=== PATIENT | female | born 1970 | race Caucasian/White ===

== ENCOUNTER 2019-10-23 18:21 | Emergency (ER) | payer BC, OTHER, SELFPAY ==
[2019-10-23 18:43] VITALS: BP 137/66; PULSE 82; RESP 16; TEMP 37.3; O2SAT 100
--- NOTE | 2019-10-23 19:16 | ED.SKABFB ---
HPI - Skin/Abscess/Foreign Bdy General Chief complaint: Skin/Abscess/Foreign Body Stated complaint: possible 3rd infected toe Time Seen by Provider: 10/23/19 19:19 Source: patient and RN notes reviewed Mode of arrival: ambulatory Limitations: no limitations History of Present Illness HPI narrative: 49 year old female who presents to express care with complaints of having callus type lesion to her left 3rd toe for some time and she rubbed it with a pumice stone. Patient states that now she has noticed her 3rd left toe red and has some extension of redness into her left toe. Patient voices tenderness to her toe described as aching rates it 4/10.Patient denies any tingling or numbness to her left foot, pedal and posterior tibial pulses palpable nail beds have brisk capillary refill to her left foot. MD complaint: lesion (callus) and other (possible cellulitis to 3rd toe) Tetanus up to date: yes Location: L foot (3rd toe) Severity: mild Severity scale (1-10): 4 Quality: aching Pain Consistency: intermittent Relieving factors: none Exacerbating factors: movement Context: other (callus patient rubbed with pumice stone) Associated symptoms: other (discomfort and redness to toe) Treatments prior to arrival: OTC topical medication Related Data Home Medications Medication Instructions Recorded Confirmed allopurinol 100 mg PO DAILY 10/23/19 10/23/19 atorvastatin 40 mg PO DAILY 10/23/19 10/23/19 balsalazide 750 mg PO DAILY 10/23/19 10/23/19 gabapentin 300 mg PO DIRECTED 10/23/19 10/23/19 levothyroxine 137 mcg PO DAILY 10/23/19 10/23/19 loratadine 10 mg PO DAILY 10/23/19 10/23/19 meloxicam 15 mg PO DAILY 10/23/19 10/23/19 metformin 1,000 mg PO DAILY 10/23/19 10/23/19 metoprolol succinate 50 mg PO DAILY 10/23/19 10/23/19 omeprazole 20 mg PO DAILY 10/23/19 10/23/19 valsartan-hydrochlorothiazide 1 tablet PO DAILY 10/23/19 10/23/19 Allergies Allergy/AdvReac Type Severity Reaction Status Date / Time No Known Allergies Allergy Mild Verified 10/23/19 18:48 Review of Systems Review of Systems: Narrative: CONSTITUTIONAL: Denies fever, chills, or sweats. EYES: Denies visual changes, redness, or discharge. ENT: Denies rhinorrhea, congestion, sore throat, or otalgia. CARDIOVASCULAR: Denies chest pain, palpitations, or edema. RESPIRATORY: Denies cough or dyspnea. GASTROINTESTINAL: Denies abdominal pain, nausea, vomiting, or diarrhea. GENITOURINARY: Denies dysuria or hematuria. SKIN: Denies rash or itching.callus lesion to the 3rd left toe with redness to left 3rd toe and into dorsal left foot. MUSCULOSKELETAL: Denies back pain, joint pain, or myalgia. NEUROLOGIC: Denies headache, numbness, or weakness. PSYCHIATRIC: Denies anxiety or depression. All systems reviewed & are unremarkable except as noted in HPI and below PMFSH Past Medical History Medical History (Updated 10/28/19 @ 09:05 by Brooklyn Davidson NP) Diabetes GERD (gastroesophageal reflux disease) Hypertension Surgical History Surgical History (Updated 10/23/19 @ 19:22 by Brooklyn Davidson NP) H/O: hysterectomy Social History Social History (Updated 10/23/19 @ 19:19 by Brooklyn Davidson NP) Second hand tobacco smoke exposure: No Living arrangements: with family Gender identity (if verbalized by the patient): Female Comments At time of signature, agree with nursing past medical, surgical, social history. There is no relevant family history pertinent to the presenting complaint Exam Narrative: Exam Narrative: GENERAL: Well-appearing, well-nourished, and in no acute distress. HEAD: Normocephalic, atraumatic. EYES: PERRLA and EOMI. ENT: Nares clear, no rhinorrhea or epistaxis. Mucous membranes moist. NECK: Supple. CHEST: Clear to auscultation. No respiratory distress.SAO2 100% on room air HEART: Regular rate and rhythm. No murmur heard. Normal peripheral pulses. ABDOMEN: Soft, nontender, nondistended, normal active bowel sounds. EXTREMITIES: Normal range of
== END 2019-10-23 19:38 | disposition home or self-care (01) ==
PROVIDERS: Emergency Provider Registered Nurse; PCP Internal Medicine
DX: L03.032 Cellulitis of left toe (principal); L84 Corns and callosities; I10 Essential (primary) hypertension
CPT/HCPCS: 99213; G0463

== ENCOUNTER 2020-03-15 14:21 | Outpatient (CLI) | payer BC, OTHER, SELFPAY ==
--- NOTE | 2020-03-15 14:27 | ECG_ITS ---
Measurements Intervals [place] Rate: 83 P: 42 SD: 180 QRS: 28 QRSD: 93 T: 20 QT: 368 QTc: 435 Interpretive Statements SINUS RHYTHM VENTRICULAR PREMATURE COMPLEXES DELAYED PRECORDIAL R/S TRANSITION BORDERLINE ST-T WAVE ABNORMALITY- ANTERIOR LEADS BASELINE ARTIFACT- I, II, III, AVR, AVF BORDERLINE ECG Electronically Signed On 03-15-2020 16:48:07 GERIATRICS PHYSICIAN by Jun Marcelino D.O.
[2020-03-15 15:07] LABS: Anion Gap 13 mmol/L (8-16); Blood Urea Nitrogen 14 mg/dL (7-17); Calcium 9.8 mg/dL (8.4-10.2); Carbon Dioxide 28 mmol/L (22-30); Chloride 96 mmol/L (98-107); Estimated Glomerular Filt Rate > 60; Glucose 193 mg/dL (65-105); Potassium 3.7 mmol/L (3.4-5.0); Sodium 137 mmol/L (137-145)
[2020-03-15 15:20] LABS: INR 0.9; Prothrombin Time 12.9 Seconds (11.1-14.7)
== END 2020-03-15 14:22 | disposition home or self-care (01) ==
LOC: ANHSURGERY 14:27
PROVIDERS: Anesthesiology; PCP Internal Medicine; Visit Provider Urology
DX: Z01.818 Encounter for other preprocedural examination (principal); I10 Essential (primary) hypertension; E11.9 Type 2 diabetes mellitus without complications; N20.1 Calculus of ureter
CPT/HCPCS: 36415; 80048; 85610; 85730; 87077; 87086; 87088; 87186; 93005

== ENCOUNTER 2020-04-01 00:57 | Day surgery (SDC) | payer BC, OTHER, SELFPAY ==
[2020-03-14 15:33] VITALS: BMI 38.2
--- NOTE | 2020-03-28 15:46 | PC.NURSE ---
NOTHING HAS CHANGED IN MEDICATIONS/ HEALTH HX SINCE LAST INTERVIEW. PATIENT WAS COVID POSITIVE BACK IN JANUARY AND RESULTS WERE FAXED TO [facility] ALREADY.
[2020-04-01] VITALS (7 sets, daily range): BP systolic 115–139; BP diastolic 62–79; PULSE 73–88; RESP 14–20; TEMP 36.4–37.1; O2SAT 98–100
--- NOTE | ~2020-04-01 | XR_ITS ---
EXAMINATION: XR abdomen/kub 1V INDICATION: Urolithiasis TECHNIQUE: Supine views of the abdomen were obtained on 2 radiographs. COMPARISON: None FINDINGS: Bowel contents project over the kidneys limiting sensitivity for renal stones. There is a q uestionable 11 mm left proximal ureteral stone projecting between the L3 and L4 transverse processes. There are multiple pelvic phleboliths. The bowel gas pattern is normal. IMPRESSION: 1. Possible stone of the left proximal ureter. Reviewed, dictated and finalized at location A. 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
[2020-04-01 06:59] LABS: INR 0.9; Prothrombin Time 13.2 Seconds (11.1-14.7)
[2020-04-01 07:00] LABS: Partial Thromboplastin Time 27.6 SECONDS (22.3-36.8)
[2020-04-01 07:01] LABS: Glucose Point of Care 187 (65-105)
--- NOTE | 2020-04-01 07:01 | SUR.PREOP ---
dr crzu aware of accucheck results this am,also pt took beta milly 03/31 829.
--- NOTE | 2020-04-01 07:08 | WPDANESEPPF ---
Anes - Initial Pre Proc Eval Procedure: Operation Date: 04/01/20 07:30 Proposed Procedures p Left Ureteral Extracorporeal Shock Wave Lithotripsy - Ke Dixon MD Date/Time: 04/01/20 07:08 Surgeon: Ke Dixon MD Pre Op Diagnosis: Left Ureter Stone Patient Data Age: 50 Gender: F Height: 5 ft 5 in Weight: 107.6 kg Last Vital Signs Temp 97.5 F L 04/01/20 06:27 Pulse 88 04/01/20 06:27 Resp 14 04/01/20 06:27 BP 124/79 04/01/20 06:27 Pulse Ox 98 04/01/20 06:27 Allergies Allergy/AdvReac Type Severity Reaction Status Date / Time Iodinated Contrast Media Allergy Hives Verified 04/01/20 06:45 Home Medications Medication Instructions Recorded Confirmed Type allopurinol 100 mg PO DAILY 10/23/19 04/01/20 History atorvastatin 40 mg PO HS 10/23/19 04/01/20 History balsalazide 2,250 mg PO DAILY 10/23/19 04/01/20 History gabapentin 600 mg PO QPM 10/23/19 04/01/20 History levothyroxine 137 mcg PO DAILY 10/23/19 04/01/20 History loratadine 10 mg PO DAILY 10/23/19 04/01/20 History metformin 1,000 mg PO BID 10/23/19 04/01/20 History metoprolol succinate 50 mg PO DAILY 10/23/19 04/01/20 History omeprazole 20 mg PO DAILY 10/23/19 04/01/20 History valsartan-hydrochlorothiazide 1 tablet PO DAILY 10/23/19 04/01/20 History aspirin [Adult Low Dose Aspirin] 81 mg PO DAILY 03/14/20 04/01/20 History cholecalciferol (vitamin D3) 50 mcg PO DAILY 03/14/20 04/01/20 History semaglutide [Ozempic] 0.25 mg SUBCUT WEEKLY 04/01/20 04/01/20 History Laboratory Tests 04/01/20 04/01/20 06:34 06:51 PT 13.2 Seconds Seconds (11.1-14.7) INR 0.9 APTT 27.6 SECONDS SECONDS (22.3-36.8) POC Capillary Glucose 187 mg/dl H mg/dl (65-105) Patient hx anesthesia problems: none Family hx anesthesia problems: none PMFSH Past Medical History Medical History (Updated 03/31/20 @ 11:28 by Hernesto Kruger MD) Diabetes GERD (gastroesophageal reflux disease) Hyperlipidemia Hypertension Hypothyroid Surgical History Surgical History (Updated 10/23/19 @ 19:22 by Brooklyn Davidson NP) H/O: hysterectomy Social History Social History (Updated 10/23/19 @ 19:19 by Brooklyn Davidson NP) Smoking status: Never smoker Second hand tobacco smoke exposure: No Living arrangements: with friend(s) Gender identity (if verbalized by the patient): Female Spiritual care concerns: No Anes - Eval Final PreProcedure Day of Procedure 04/01/20 07:08 Patient weight: morbidly obese Heart: regular rate and rhythm Lungs: clear to auscultation Airway: Mallampati scale class II Neurological: alert and oriented Last oral intake: >/= 8 hours ASA classification: IV Emergent: no Anesthetic plan: proceed Anesthesia type and monitoring: general LMA and standard monitoring Informed Consent: The patient's anesthetic plan and its attendant risks and benefits were discussed with the patient/family/POA. Questions were solicited and answers provided to the satisfaction of the patient/family/POA.
--- NOTE | 2020-04-01 07:13 | WPDHPUPDATE1 ---
History and Physical Update Update Date/Time: 04/01/20 07:13 History and Physical has been reviewed, including an updated exam of the patient. There are NO changes in the patient's condition. Risks, benefits, and alternatives have been discussed and questions answered. Patient agrees to proceed with procedure. Proceed with eswl of left upj calculus
[2020-04-01] MEDS: ceFAZolin 2 GM/D5W 50 ML 2 GM/50 ML BAG IVPB (07:28)
--- NOTE | 2020-04-01 08:02 | PM.PROC ---
Procedure Note - Detailed Date of procedure: 04/01/20 Pre-op diagnosis: Left Ureter Stone Post-op diagnosis: same Procedure performed: Lithotripsy of left ureteral calculus 3000 shocks Description of procedure: Patient is taken the operative suite and correctly identified. Once anesthesia was obtained the stone was localized in both planes. Three thousand shocks given to the stone. Patient tolerated procedure well without any complications taken recovery stable condition. She will follow up in about 7-10 days with a KUB. Anesthesia: GLMA Surgeon: Ke Dixon MD Drains: No Packing: No Pathology: none sent Complications: No immediate complications Condition: stable Disposition: PACU
[2020-04-01] MEDS: LACTATED RINGERS 1,000 ML 30 ML IV CONT (08:13)
[2020-04-01 08:25] LABS: Glucose Point of Care 160 (65-105)
== END 2020-04-01 09:31 | disposition home or self-care (01) ==
PROVIDERS: Family Provider Internal Medicine; PCP Internal Medicine; Visit Provider Urology
PROC: (CPT 50590; principal; 2020-04-01 07:30)
DX: N20.1 Calculus of ureter (principal); Z79.82 Long term (current) use of aspirin; Z79.84 Long term (current) use of oral hypoglycemic drugs; E11.9 Type 2 diabetes mellitus without complications; K21.9 Gastro-esophageal reflux disease without esophagitis; E78.5 Hyperlipidemia, unspecified; I10 Essential (primary) hypertension; E03.9 Hypothyroidism, unspecified; E66.01 Morbid (severe) obesity due to excess calories; Z68.39 Body mass index [BMI] 39.0-39.9, adult
CPT/HCPCS: 50590; 36415; 74018; 82948; 85610; 85730; J0690; J1100; J2405; J2704; J3010; J7120

== ENCOUNTER 2020-04-26 16:00 | Outpatient (CLI) | payer BC, OTHER, SELFPAY ==
--- NOTE | ~2020-04-26 | XR_ITS ---
XR abdomen/kub 1V DATE: 04/26/2020 16:18 INDICATION: Calcium kidney stone TECHNIQUE: AP projection, 2 views COMPARISON: 04/01/[address] abdomen pelvis FINDINGS: Tear-drop shaped approximately 4 x 9.5 mm calcification overlying proximal left ureter at l ower L3 level. Probable bilateral calcified pelvic phleboliths. No visceromegaly is evident. The psoas shadows are intact. There is no evidence of bowel obstruction. IMPRESSION: Proximal left ureteral calcified calculus at L3 level Reviewed, dictated and finalized at [facility]. Reviewed, dictated and finalized at location A.
--- NOTE | ~2020-04-26 | CT_ITS ---
EXAMINATION: CT abdomen pelvis wo con DATE: 04/26/2020 16:26 INDICATION: Left calcium kidney stone TECHNIQUE: Computed tomography (CT) of the abdomen and pelvis was performed without intravenous contr ast. Automated exposure control and iterative reconstruction technique were employed. Exam dose: 110 7.74 mGy-cm total exam DLP. COMPARISON: 04/26/2020 KUB 04/01/2020 KUB FINDINGS: The lung bases are clear of infiltrate or consolidation. Normal heart size. No pericardial or pleural effusion. There are 2 approximately 1.5 cm faceted gallstones. No gallbladder wall thickening or pericholecysti c fluid or fat stranding. No bile duct or pancreatic duct dilatation. There is a calcification of the tail the pancreas suggesting mild chronic pancreatitis. No hepatic, splenic, pancreatic, adrenal or renal space-occupying mass lesion is evident on this limi william noncontrast examination. There is an up to 5.2 x 8.4 mm left ureteropelvic junction calculus, with mild left hydronephrosis. There is an approximate 4.5 mm nonobstructing lower pole left renal calculus. No right urinary tract calculus. The urinary bladder is evacuated. Status post hysterectomy. Normal caliber of the abdominal aorta. No intraperitoneal or retroperitoneal or pelvic mass lesion or adenopathy or ascites. There are nonspecific scattered hilar quadrant lymph nodes measuring up to 9. 5 x 15 mm. No enlarged periaortic or aortocaval lymph nodes. Normal appendix. No bowel obstruction. There is some fatty infiltration of the wall of the sigmoid:. No pneumatosis or intraperitoneal free air. 6 x 7.5 cm cystic lesion is noted in the inferomedial anterior pelvic wall. Degenerative changes of the thoracic and lumbar spine including severe degenerative disc disease at L 5-S1 and prominent degenerative change at the apophyseal joints of the lumbar and lumbosacral area. No suspicious osteolytic or osteoblastic lesions are noted. IMPRESSION: Cholelithiasis Mild chronic pancreatitis 5.2 x 8.4 lower left ureteropelvic junction calculus with mild left hydronephrosis 4.5 mm nonobstructing lower pole left renal calculus Status post hysterectomy 6 x 7.5 cm cystic lesion in the inferomedial anterior pelvic wall Reviewed, dictated and finalized at [facility]. Reviewed, dictated and finalized at location A. IMPRESSION: Cholelithiasis Mild chronic pancreatitis 5.2 x 8.4 lower left ureteropelvic junction calculus with mild left hydronephro sis 4.5 mm nonobstructing lower pole left renal calculus Status post hysterectomy 6 x 7.5 cm cystic lesion in the inferomedial anterior pelvic wall
== END 2020-04-26 16:01 | disposition home or self-care (01) ==
LOC: ANHIMG 16:01
PROVIDERS: PCP Internal Medicine; Visit Provider Urology
DX: N20.0 Calculus of kidney (principal); K80.20 Calculus of gallbladder without cholecystitis without obstruction; Z90.49 Acquired absence of other specified parts of digestive tract; K86.1 Other chronic pancreatitis
CPT/HCPCS: 74018; 74176

== ENCOUNTER → 2020-05-02 00:41 | Outpatient (CLI) | payer BC, OTHER, SELFPAY ==
[2020-05-02 20:23] LABS: SARS-CoV-2 RNA PCR Negative
== END ==
PROVIDERS: PCP Internal Medicine; Visit Provider Urology
DX: Z01.812 Encounter for preprocedural laboratory examination (principal); Z20.822 Contact with and (suspected) exposure to COVID-19
CPT/HCPCS: C9803; U0003; U0005

== ENCOUNTER 2020-05-02 08:15 | Outpatient (CLI) | payer BC, OTHER, SELFPAY | END 2020-05-02 08:16 | disposition home or self-care (01) | PROVIDERS: PCP Internal Medicine; Visit Provider Urology | DX: N20.0 Calculus of kidney (principal); Z01.818 Encounter for other preprocedural examination | CPT/HCPCS: 87086 ==

== ENCOUNTER 2020-05-05 02:03 | Day surgery (SDC) | payer BC, OTHER, SELFPAY ==
[2020-04-29 15:45] VITALS: BMI 38.2
[2020-05-05] VITALS (7 sets, daily range): BP systolic 97–126; BP diastolic 51–76; PULSE 74–86; RESP 18–20; TEMP 36.2–36.7; O2SAT 94–100
--- NOTE | ~2020-05-05 | XR_ITS ---
EXAMINATION: XR retrograde pyelo w/stent LT DATE: 05/05/2020 08:13 INDICATION: Left internal ureteral stent placement TECHNIQUE: Fluoroscopic images from a left internal ureteral stent placement are submitted for review . 43 seconds of fluoroscopy time. 5 fluoroscopic images. FINDINGS: There is a left double-J internal ureteral stent projecting in expected position, with proximal [place] loop at the level of the renal pelvis and distal loop in the pelvis within the bladder lumen. IMPRESSION: 1. Left internal ureteral stent placement. Please refer to real-time procedural findings for detail s. Reviewed, dictated and finalized at location A. IMPRESSION: 1. Left internal ureteral stent placement. Please refer to real-time procedur al findings for details.
[2020-05-05 06:37] LABS: Glucose Point of Care 163 (65-105)
--- NOTE | 2020-05-05 06:51 | P.PNAN_ITS ---
Anes - Initial Pre Proc Eval Procedure: Operation Date: 05/05/20 07:30 Proposed Procedures p Cystoscopy, Left Retrograde Pyelogram, Left Stone Extraction, Left Stent Placement - Ke Dixon MD s Holmium Laser Procedure - Ke Dixon MD Date/Time: 05/05/20 06:51 Surgeon: Ke Dixon MD Pre Op Diagnosis: Left Kidney Stones Patient Data Age: 50 Gender: F Height: 5 ft 5 in Weight: 104.3 kg Allergies Allergy/AdvReac Type Severity Reaction Status Date / Time Iodinated Contrast Media Allergy Hives Verified 04/29/20 15:40 Home Medications Medication Instructions Recorded Confirmed Type allopurinol 100 mg PO DAILY 10/23/19 04/29/20 History atorvastatin 40 mg PO HS 10/23/19 04/29/20 History balsalazide 2,250 mg PO DAILY 10/23/19 04/29/20 History gabapentin 600 mg PO QPM 10/23/19 04/29/20 History levothyroxine 137 mcg PO DAILY 10/23/19 04/29/20 History loratadine 10 mg PO DAILY 10/23/19 04/29/20 History metformin 1,000 mg PO BID 10/23/19 04/29/20 History metoprolol succinate 50 mg PO DAILY 10/23/19 04/29/20 History omeprazole 20 mg PO DAILY 10/23/19 04/29/20 History valsartan-hydrochlorothiazide 1 tablet PO DAILY 10/23/19 04/29/20 History aspirin 81 mg PO DAILY 03/14/20 04/29/20 History cholecalciferol (vitamin D3) 50 mcg PO DAILY 03/14/20 04/29/20 History Ozempic 0.25 mg SUBCUT WEEKLY 04/01/20 04/29/20 History Laboratory Tests 05/05/20 06:35 POC Capillary Glucose 163 mg/dl H mg/dl (65-105) Patient hx anesthesia problems: none Family hx anesthesia problems: none PMFSH Past Medical History Medical History Diabetes GERD (gastroesophageal reflux disease) Hyperlipidemia Hypertension Hypothyroid Surgical History Surgical History H/O: hysterectomy Social History Social History Smoking status: Never smoker Second hand tobacco smoke exposure: No Alcohol intake: never Substance use: never Substance use type: does not use Living arrangements: with family Gender identity (if verbalized by the patient): Female Spiritual care concerns: No Anes - Eval Final PreProcedure Day of Procedure 05/05/20 06:51 Patient weight: morbidly obese Heart: regular rate and rhythm Lungs: clear to auscultation Airway: Mallampati scale class II Neurological: alert and oriented Last oral intake: >/= 8 hours ASA classification: III Emergent: no Anesthetic plan: proceed Anesthesia type and monitoring: general LMA and standard monitoring Informed Consent: The patient's anesthetic plan and its attendant risks and benefits were discussed with the patient/family/POA. Questions were solicited a nd answers provided to the satisfaction of the patient/family/POA.
[2020-05-05] MEDS: LACTATED RINGERS 1,000 ML 30 ML IV CONT ×2 (06:55→08:15)
--- NOTE | 2020-05-05 07:15 | WPDHPUPDATE1 ---
History and Physical Update Update Date/Time: 05/05/20 07:15 History and Physical has been reviewed, including an updated exam of the patient. There are NO changes in the patient's condition. Risks, benefits, and alternatives have been discussed and questions answered. Patient agrees to proceed with procedure. Proceed with cysto, left retrograde, left ureteroscopy with stone extraction , laser , stent placement
[2020-05-05] MEDS: ceFAZolin 2 GM/D5W 50 ML 2 GM/50 ML BAG IVPB (07:22)
[2020-05-05] MEDS: LIDOCAINE HCL 2% GEL UROJET 10 ML PKG MUCOUS MEM (07:38)
--- NOTE | 2020-05-05 08:09 | PM.PROC ---
Procedure Note - Detailed Date of procedure: 05/05/20 Pre-op diagnosis: Left Kidney Stones Post-op diagnosis: same Procedure performed: Cystoscopy, left retrograde pyelogram, left ureteroscopy with holmium laser of stone, stone extraction, left ureteral stent placement 4.8 [place] contour stent Description of procedure: Patient is taken the operative suite and correctly identified. Once anesthesia was obtained she was placed in dorsal lithotomy position and prepped and draped usual sterile fashion. Twenty-two [place] scope inserted in the bladder. There are no tumors noted. Left ureteral orifice was cannulated with a guidewire. It could not get past the 8-9 mm left UPJ stone. We placed ureteral access sheath gently up to the stone. Using 273 micron holmium laser fiber we fragmented stone in multiple pieces. The largest pieces were retrieved. Reinspection of the kidney did not reveal any significant stone burden. Pyelogram was then performed. The flexible scope had been removed. 4.8 [place] contour stent was then placed with the proximal end coiled in the renal pelvis and the distal in the bladder. Bladder was drained. 2% viscous lidocaine was inserted urethra patient is taken recovery stable condition. She will follow up in 7-10 days for stent removal in the office. She has call for that appointment. Anesthesia: GLMA Surgeon: Ke Dixon MD Drains: Yes Packing: No Pathology: yes Complications: No immediate complications Condition: stable Disposition: PACU
[2020-05-05 08:20] LABS: Glucose Point of Care 140 (65-105)
== END 2020-05-05 09:40 | disposition home or self-care (01) ==
PROVIDERS: PCP Internal Medicine; Visit Provider Urology
PROC: (CPT 52352; principal; 2020-05-05 07:30)
PROC: (CPT 52356; 2020-05-05 07:30)
DX: N20.1 Calculus of ureter (principal); I10 Essential (primary) hypertension; E11.9 Type 2 diabetes mellitus without complications; E78.5 Hyperlipidemia, unspecified; E03.9 Hypothyroidism, unspecified; K21.9 Gastro-esophageal reflux disease without esophagitis; Z79.84 Long term (current) use of oral hypoglycemic drugs; Z79.82 Long term (current) use of aspirin; E66.01 Morbid (severe) obesity due to excess calories; Z68.36 Body mass index [BMI] 36.0-36.9, adult
CPT/HCPCS: 52356; 74420; 82365; 82948; 88300; A9270; C1769; C1894; C2617; J0690; J1100; J2250; J2405; J2704; J3010; J7120; Q9966

== ENCOUNTER 2021-05-15 02:04 | Day surgery (SDC) | payer BC, SELFPAY ==
[2021-05-02 12:48] VITALS: BMI 39.2
[2021-05-15 06:49] VITALS: BP 119/72; PULSE 104; RESP 17; TEMP 36.3; O2SAT 100; BMI 39.0
--- NOTE | 2021-05-15 06:54 | WPDGICN ---
Assessment and Plan Assessment and plan (1) Ulcerative colitis: Code(s): K51.90 - Ulcerative colitis, unspecified, without complications Status: Acute Assessment and Plan: Colonoscopy with possible biopsy or polypectomy or cautery or injection of substances. GI Consult Note Consult date/time: 05/15/21 06:54 HPI: Amairani Hilton is a 51 year old female who was diagnosed with ulcerative colitis in 2019. I performed a colonoscopy 18 months ago that revealed colitis throughout the left side and also with pseudo polyps throughout the colon. She is currently taking balsalazide 2250 mg daily. her bowel movements are normal. She normally has 1 stool per day. She denies blood in the stools she denies abdominal pain cramping or diarrhea. Review of Systems Review of Systems: All systems reviewed & are unremarkable except as noted in HPI and below PMFSH Past Medical History Medical History Diabetes GERD (gastroesophageal reflux disease) Hyperlipidemia Hypertension Hypothyroid Surgical History Surgical History H/O: hysterectomy Social History Social History Smoking status: Never smoker Second hand tobacco smoke exposure: No Alcohol intake: never Substance use: never Substance use type: does not use Living arrangements: with family Gender identity (if verbalized by the patient): Female Spiritual care concerns: No Meds Home Medications and Allergies Home Medications Medication Instructions Recorded Confirmed Type allopurinol 100 mg PO DAILY 10/23/19 05/15/21 History atorvastatin 40 mg PO DAILY 10/23/19 05/15/21 History gabapentin 600 mg PO QPM 10/23/19 05/15/21 History levothyroxine 137 mcg PO DAILY 10/23/19 05/15/21 History metformin 1,000 mg PO BID 10/23/19 05/15/21 History metoprolol succinate 50 mg PO DAILY 10/23/19 05/15/21 History omeprazole 20 mg PO DAILY 10/23/19 05/15/21 History valsartan-hydrochlorothiazide 1 tablet PO DAILY 10/23/19 05/15/21 History aspirin 81 mg PO DAILY 03/14/20 05/15/21 History cholecalciferol (vitamin D3) 50 mcg PO DAILY 03/14/20 05/15/21 History balsalazide 750 mg capsule 2,250 mg PO DAILY #270 cap 11/01/20 05/15/21 Rx buspirone 5 mg tablet 5 mg PO BID 11/01/20 05/15/21 History icosapent ethyl 1 gram capsule 2 g PO BID 11/01/20 05/15/21 History dapagliflozin [Farxiga] 5 mg PO DAILY 05/02/21 05/15/21 History Allergies Allergy/AdvReac Type Severity Reaction Status Date / Time Iodinated Contrast Media Allergy Hives Verified 05/15/21 06:47 Vital Signs Vital Signs - 24 hr 05/15/21 06:49 Temperature 36.3 C L Pulse Rate 104 H Respiratory Rate 17 Blood Pressure 119/72 Pulse Oximetry 100 Exam Const: General: alert Orientation/consciousness: patient oriented x3 Resp: Auscultation: clear to auscultation bilaterally Cardio: Rhythm: regular rhythm GI: GI Palp: Yes Soft to palpation and No Tenderness to palpation present (GI) Neuro: General: patient oriented x3
[2021-05-15] MEDS: LACTATED RINGERS 1,000 ML 150 ML IV CONT (07:03)
[2021-05-15 07:06] LABS: Glucose Point of Care 214 mg/dl (65-105)
--- NOTE | 2021-05-15 07:29 | WPDANESEPPF ---
Anes - Initial Pre Proc Eval Procedure: Operation Date: 05/15/21 08:00 Proposed Procedures p Colonoscopy - Mj El MD Date/Time: 05/15/21 07:29 Surgeon: Mj El MD Pre Op Diagnosis: ulcerative colitis Patient Data Age: 51 Gender: F Height: 1.65 m Weight: 106.4 kg Last Vital Signs Temp 97.3 F L 05/15/21 06:49 Pulse 104 H 05/15/21 06:49 Resp 17 05/15/21 06:49 BP 119/72 05/15/21 06:49 Pulse Ox 100 05/15/21 06:49 Allergies Allergy/AdvReac Type Severity Reaction Status Date / Time Iodinated Contrast Media Allergy Hives Verified 05/15/21 06:47 Home Medications Medication Instructions Recorded Confirmed Type allopurinol 100 mg PO DAILY 10/23/19 05/15/21 History atorvastatin 40 mg PO DAILY 10/23/19 05/15/21 History gabapentin 600 mg PO QPM 10/23/19 05/15/21 History levothyroxine 137 mcg PO DAILY 10/23/19 05/15/21 History metformin 1,000 mg PO BID 10/23/19 05/15/21 History metoprolol succinate 50 mg PO DAILY 10/23/19 05/15/21 History omeprazole 20 mg PO DAILY 10/23/19 05/15/21 History valsartan-hydrochlorothiazide 1 tablet PO DAILY 10/23/19 05/15/21 History aspirin 81 mg PO DAILY 03/14/20 05/15/21 History cholecalciferol (vitamin D3) 50 mcg PO DAILY 03/14/20 05/15/21 History balsalazide 750 mg capsule 2,250 mg PO DAILY #270 cap 11/01/20 05/15/21 Rx buspirone 5 mg tablet 5 mg PO BID 11/01/20 05/15/21 History icosapent ethyl 1 gram capsule 2 g PO BID 11/01/20 05/15/21 History dapagliflozin [Farxiga] 5 mg PO DAILY 05/02/21 05/15/21 History Laboratory Tests 05/15/21 06:54 POC Capillary Glucose 214 mg/dl H mg/dl (65-105) Patient hx anesthesia problems: none Family hx anesthesia problems: none Results Review: All pre-operative results and documents have been reviewed as part of the pre-operative evaluation. [facility] Past Medical History Medical History Diabetes GERD (gastroesophageal reflux disease) Hyperlipidemia Hypertension Hypothyroid Surgical History Surgical History H/O: hysterectomy Social History Social History Smoking status: Never smoker Second hand tobacco smoke exposure: No Alcohol intake: never Substance use: never Substance use type: does not use Living arrangements: with family Gender identity (if verbalized by the patient): Female Spiritual care concerns: No Anes - Eval Final PreProcedure Day of Procedure 05/15/21 07:29 Patient weight: morbidly obese Heart: regular rate and rhythm Lungs: clear to auscultation Airway: Mallampati scale class II Neurological: alert and oriented Last oral intake: >/= 8 hours ASA classification: III Emergent: no Anesthetic plan: proceed Anesthesia type and monitoring: general GIVS and standard monitoring Results Review: All pre-operative results and documents have been reviewed as part of the pre-operative evaluation. Informed Consent: The patient's anesthetic plan and its attendant risks and benefits were discussed with the patient/family/POA. Questions were solicited and answers provided to the satisfaction of the patient/family/POA.
[2021-05-15 08:17] VITALS: BP 117/66; PULSE 81; RESP 17; O2SAT 96
[2021-05-15 08:27] VITALS: BP 108/65; PULSE 74; RESP 17; O2SAT 95
[2021-05-15 08:33] VITALS: BP 107/66; PULSE 68; RESP 17; O2SAT 96
== END 2021-05-15 08:53 | disposition home or self-care (01) ==
PROVIDERS: PCP Internal Medicine; Visit Provider Internal Medicine Gastroenterology
PROC: 0DJD8ZZ Inspection of Lower Intestinal Tract, Via Natural or Artificial Opening Endoscopic (ICD-10-PCS; CPT 45378; principal; 2021-05-15 08:00)
DX: K51.90 Ulcerative colitis, unspecified, without complications (principal); K51.40 Inflammatory polyps of colon without complications; D12.3 Benign neoplasm of transverse colon; K64.8 Other hemorrhoids; I10 Essential (primary) hypertension; E78.5 Hyperlipidemia, unspecified; E11.9 Type 2 diabetes mellitus without complications; E03.9 Hypothyroidism, unspecified; K21.9 Gastro-esophageal reflux disease without esophagitis; Z79.84 Long term (current) use of oral hypoglycemic drugs; Z79.82 Long term (current) use of aspirin; E66.01 Morbid (severe) obesity due to excess calories; Z68.39 Body mass index [BMI] 39.0-39.9, adult
CPT/HCPCS: 45385; 45380; 82948; 88305; J2704; J7120

== ENCOUNTER 2023-02-18 04:53 | Emergency (ER) | payer OTHER, SELFPAY ==
[2023-02-18 04:56] VITALS: BP 142/86; PULSE 90; RESP 18; TEMP 36.4; O2SAT 95
[2023-02-18 07:59] VITALS: PULSE 90
[2023-02-18] MEDS: diazePAM INJ (*CRX) 10 MG/2 ML SYRINGE 5 MG IV PUSH (08:12)
[2023-02-18] MEDS: SODIUM CHLORIDE 0.9% IV 1,000 ML 999 ML IV CONT (08:12)
[2023-02-18] MEDS: ONDANSETRON INJ 4 MG/2 ML VIAL IV PUSH (08:12)
--- NOTE | 2023-02-18 08:25 | PC.NURSE ---
Pt reports room spinning around her, woke up this morning at 0400 with dizziness after turning onto left side. Pt attempted to get out of bed when she rolled out onto to the floor. Denies any injury or hitting head. Pt states worse with eyes open, nausea present.
--- NOTE | 2023-02-18 08:27 | ED.GENADULT ---
HPI - General Adult General Chief complaint: Dizziness Stated complaint: vertigo Time Seen by Provider: 02/18/23 07:45 History of Present Illness HPI narrative: Patient is a 53-year-old female with history of vertigo who presents ER with dizziness. Was lying in bed on her right side and turned over to left side immediately felt spinning dizziness. Associated with nausea vomiting. Symptoms worse with any movement. She attempted taking her meclizine times today with no improvement. Reports she has had some mild sinus congestion over last week. No ear pressure. Denies numbness or weakness to an arm or leg. No slurred speech Related Data Home Medications Medication Instructions Recorded Confirmed allopurinol 100 mg tablet 100 mg PO DAILY 10/23/19 05/15/21 atorvastatin 40 mg tablet 40 mg PO DAILY 10/23/19 05/15/21 gabapentin 300 mg capsule 600 mg PO QPM 10/23/19 05/15/21 levothyroxine 137 mcg tablet 137 mcg PO DAILY 10/23/19 05/15/21 metformin 1,000 mg tablet 1,000 mg PO BID 10/23/19 05/15/21 metoprolol succinate 50 mg 50 mg PO DAILY 10/23/19 05/15/21 tablet,extended release 24 hr omeprazole 20 mg capsule,delayed 20 mg PO DAILY 10/23/19 05/15/21 release valsartan 160 1 tablet PO DAILY 10/23/19 05/15/21 mg-hydrochlorothiazide 25 mg tablet aspirin 81 mg tablet 81 mg PO DAILY 03/14/20 05/15/21 cholecalciferol (vitamin D3) 50 50 mcg PO DAILY 03/14/20 05/15/21 mcg (2,000 unit) tablet buspirone 5 mg tablet 5 mg PO BID 11/01/20 05/15/21 icosapent ethyl 1 gram capsule 2 g PO BID 11/01/20 05/15/21 (Vascepa) dapagliflozin propanediol 5 mg 5 mg PO DAILY 05/02/21 05/15/21 tablet (Farxiga) Allergies Allergy/AdvReac Type Severity Reaction Status Date / Time Iodinated Contrast Media Allergy Hives Verified 05/15/21 06:47 Review of Systems Review of Systems: All systems reviewed & are unremarkable except as noted in HPI and below Constitutional: Constitutional: Denies chills, Denies fatigue and Denies fever(s) ENT: Reports dizziness, Reports nasal congestion and Denies sore throat Cardiovascular: Cardiovascular: Reports no additional cardiovascular complaints Respiratory: Respiratory: Reports no additional respiratory complaints Gastrointestinal: Gastrointestinal: Denies abdominal pain, Denies diarrhea, Reports nausea and Reports vomiting PMFSH Past Medical History Medical History Diabetes GERD (gastroesophageal reflux disease) Hyperlipidemia Hypertension Hypothyroid Surgical History Surgical History H/O: hysterectomy Social History Social History Smoking status: Never smoker Second hand tobacco smoke exposure: No Alcohol intake: never Substance use: never Substance use type: does not use Living arrangements: with family Gender identity (if verbalized by the patient): Female Spiritual care concerns: No Exam Narrative: GENERAL: Well-appearing, well-nourished, and in no acute distress. HEAD: Normocephalic, atraumatic. EYES: PERRL and EOMI With left gaze nystagmus. ENT: Mucous membranes moist. TMs normal bilaterally. CHEST: Clear to auscultation. No respiratory distress. HEART: Regular rate and rhythm. Normal peripheral pulses. ABDOMEN: Soft, nontender, nondistended. EXTREMITIES: Normal range of motion. No edema. SKIN: Warm, dry, no rash. NEURO: Alert and oriented x3. PSYCH: Normal mood and affect. Course Course Emergency Course: Patient feels much better after receiving Valium and fluids. She is up and ambulatory without issue. Feels comfortable with discharge home with supportive care. Vital Signs Vital signs: Vital Signs Temperature 97.5 F L 02/18/23 04:56 Pulse Rate 90 02/18/23 04:56 Respiratory Rate 18 02/18/23 04:56 Blood Pressure 142/86 H 02/18/23 04:56 Pulse Oximetry 95
[2023-02-18 10:05] VITALS: BP 130/84; PULSE 86; RESP 14; O2SAT 99
== END 2023-02-18 10:05 | disposition home or self-care (01) ==
PROVIDERS: Emergency Provider Emergency Medicine; PCP Internal Medicine
DX: R42 Dizziness and giddiness (principal); I10 Essential (primary) hypertension; E03.9 Hypothyroidism, unspecified; E78.5 Hyperlipidemia, unspecified; E11.9 Type 2 diabetes mellitus without complications; K21.9 Gastro-esophageal reflux disease without esophagitis; Z90.710 Acquired absence of both cervix and uterus; Z79.82 Long term (current) use of aspirin; Z79.84 Long term (current) use of oral hypoglycemic drugs
CPT/HCPCS: 96361; 96374; 96375; 99284; J2405; J3360; J7030

== ENCOUNTER 2023-03-09 10:07 | Outpatient (CLI) | payer OTHER, SELFPAY ==
[2023-03-09 10:36] LABS: Basophils Absolute Auto 0.1 K/mm3 (0.0-0.1); Eosinophils Absolute Auto 0.2 K/mm3 (0-0.3); Eosinophils Percent Auto 2.7 % (0-4.4); Hematocrit 44.5 % (37.0-47.0); Hemoglobin 14.5 g/dL (12.0-15.0); Immature Granulocyte Absolute 0.11 K/mm3 (0.00-0.031); Immature Granulocyte Percent A 1.3 % (0-0.5); Lymphocytes Absolute Auto 2.31 K/mm3 (0.9-3.2); Lymphocytes Percent Auto 26.7 % (18.3-44.2); Mean Corpuscular HGB Conc 32.6 g/dl (32-36); Mean Corpuscular Hemoglobin 27.5 pg (26-34); Mean Corpuscular Volume 84.4 fl (80-100); Mean Platelet Volume 10.7 fl (7.4-10.4); Monocytes Absolute Auto 0.5 K/mm3 (0.1-0.6); Monocytes Percent Auto 6.1 % (2.6-8.5); Neutrophils Absolute Auto 5.4 K/mm3 (1.3-6.7); Neutrophils Percent Auto 62.2 % (45.5-73.1); Platelet Count Result 236 k/mm3 (150-375); Red Blood Count 5.27 M/mm3 (4.2-5.4); Red Cell Distribution Width 13.9 % (11.5-14.5); White Blood Count 8.7 K/mm3 (4.5-10.0)
[2023-03-09 11:21] LABS: Alanine Aminotransferase 44 U/L (6-35); Albumin Level 4.1 g/dL (3.5-5.1); Alkaline Phosphatase 78 U/L (38-126); Anion Gap 8 mmol/L (8-16); Aspartate Amino Transferase 45 U/L (14-36); Bilirubin,Total 1.4 mg/dL (0.2-1.3); Blood Urea Nitrogen 14 mg/dL (7-17); Calcium 9.3 mg/dL (8.4-10.2); Carbon Dioxide 29 mmol/L (22-30); Chloride 102 mmol/L (98-107); Cholesterol 158 mg/dL (0-200); Estimated Glomerular Filt Rate > 60; Glucose 274 mg/dL (65-110); HDL Direct 37 mg/dL; Potassium 4.5 mmol/L (3.4-5.0); Sodium 139 mmol/L (137-145); Triglycerides 269 mg/dL (<150)
[2023-03-09 11:31] LABS: LDL Cholesterol Direct 91 mg/dL
[2023-03-09 12:23] LABS: Vitamin D 25 Hydroxy 42.2 ng/mL
[2023-03-09 13:48] LABS: Creatinine Urine 124.2 mg/dL
[2023-03-09 14:33] LABS: MALB Creatinine Ratio 314.3 mg/g (0-30); Microalbumin Urine Random 390.3 mg/L (0-16.7)
== END 2023-03-09 10:08 | disposition home or self-care (01) ==
LOC: ANHLAB 10:09
PROVIDERS: PCP Internal Medicine; Visit Provider Internal Medicine
DX: E11.9 Type 2 diabetes mellitus without complications (principal); E78.5 Hyperlipidemia, unspecified; E55.9 Vitamin D deficiency, unspecified
CPT/HCPCS: 36415; 80053; 80061; 82043; 82306; 83036; 84443; 85025

== ENCOUNTER 2023-05-22 16:21 | Outpatient (CLI) | payer OTHER, SELFPAY ==
[2023-05-22 17:48] LABS: Strep Group A RT-PCR NOT DETECTED (Negative)
[2023-05-22 18:00] LABS: Influenza A QL RT-PCR Negative (Negative); Influenza B QL RT-PCR Negative (Negative); SARS-CoV-2 RNA PCR Negative (Negative)
== END 2023-05-22 16:22 | disposition home or self-care (01) ==
PROVIDERS: PCP Family Medicine; Visit Provider Internal Medicine
DX: J06.9 Acute upper respiratory infection, unspecified (principal); Z20.822 Contact with and (suspected) exposure to COVID-19
CPT/HCPCS: 87502; 87635; 87651

== ENCOUNTER 2023-06-09 12:22 | Emergency (ER) | payer OTHER, SELFPAY ==
[2023-06-09 12:45] VITALS: BP 107/57; PULSE 85; RESP 20; TEMP 36.4; O2SAT 98
--- NOTE | 2023-06-09 13:09 | ED.URI ---
HPI - URI/Sore Throat General Chief Complaint: Upper Respiratory Infection Stated Complaint: Sinus/Ears Irritation History of Present Illness HPI Narrative: 53-year-old female presented for complaint of sinus pressure congestion with bilateral ear pressure for about 4 weeks. Endorses green nasal drainage. Yesterday she had more right ear pain, right eye pressure. Two weeks ago she was given a Z-Orion without relief. She takes daily Flonase Zyrtec. Denies shortness of wheezing nausea, vomiting, fevers or chills. Related Data Home Medications Medication Instructions Recorded Confirmed allopurinol 100 mg tablet 100 mg PO DAILY 10/23/19 06/09/23 atorvastatin 40 mg tablet 40 mg PO DAILY 10/23/19 06/09/23 gabapentin 300 mg capsule 600 mg PO QPM 10/23/19 06/09/23 levothyroxine 137 mcg tablet 137 mcg PO DAILY 10/23/19 06/09/23 metformin 1,000 mg tablet 1,000 mg PO BID 10/23/19 06/09/23 metoprolol succinate 50 mg 50 mg PO DAILY 10/23/19 06/09/23 tablet,extended release 24 hr omeprazole 20 mg capsule,delayed 20 mg PO DAILY 10/23/19 06/09/23 release valsartan 160 1 tablet PO DAILY 10/23/19 06/09/23 mg-hydrochlorothiazide 25 mg tablet aspirin 81 mg tablet 81 mg PO DAILY 03/14/20 06/09/23 cholecalciferol (vitamin D3) 50 50 mcg PO DAILY 03/14/20 06/09/23 mcg (2,000 unit) tablet buspirone 5 mg tablet 5 mg PO BID 11/01/20 06/09/23 icosapent ethyl 1 gram capsule 2 g PO BID 11/01/20 06/09/23 (Vascepa) dapagliflozin propanediol 5 mg 5 mg PO DAILY 05/02/21 06/09/23 tablet (Farxiga) Allergies Allergy/AdvReac Type Severity Reaction Status Date / Time Iodinated Contrast Media Allergy Hives Verified 06/09/23 12:24 Review of Systems Review of Systems: CONSTITUTIONAL: Denies body aches, fever, chills, or sweats. EYES: Denies visual changes, redness, or discharge. ENT: reports rhinorrhea, congestion, otalgia. CARDIOVASCULAR: Denies chest pain, palpitations, or edema. RESPIRATORY: Denies dyspnea. GASTROINTESTINAL: Denies abdominal pain, nausea, vomiting, or diarrhea. SKIN: Denies rash, itching, or wounds. MUSCULOSKELETAL: Denies back pain, joint pain, or myalgia. [facility] Past Medical History Medical History Diabetes GERD (gastroesophageal reflux disease) Hyperlipidemia Hypertension Hypothyroid Surgical History Surgical History H/O: hysterectomy Social History Social History Smoking status: Never smoker Second hand tobacco smoke exposure: No Alcohol intake: never Substance use: never Substance use type: does not use Living arrangements: with family Gender identity (if verbalized by the patient): Female Spiritual care concerns: No Exam Narrative: GENERAL: well-appearing, no acute distress. EYES: conjunctivae clear ENT: Mucous membranes moist. Maxillary sinus tenderness. TMs pearly zacarias with normal light reflex bilaterally; no tragal tenderness. Oropharynx not erythematous without lesions. No drooling, no hoarseness, no trismus, uvula midline. No tripod positioning, hot potato voice, or soft palate swelling. NECK: Supple. No lymphadenopathy CHEST: Clear to auscultation, breath sounds equal. No respiratory distress, speaks in full sentences. HEART: Regular rate and rhythm. No murmur heard. SKIN: Warm, dry, no rash. NEURO: Alert and oriented x3. Course Course Emergency Course: Patient is aware of diagnosis, understands and agrees to treatment plan. Anticipatory guidance given. Patient agrees to follow-up as directed and is aware of reasons to seek care at the emergency department. Portions of this record may have been created with voice recognition software Level of Care: Express Care Visit Vital Signs Vital signs: Vital Signs Temperature 97.6 F 06/09/23 12:45 Pulse Rate 85 06/09/23 12:45 Respira
== END 2023-06-09 13:20 | disposition home or self-care (01) ==
PROVIDERS: Emergency Provider Nurse Practitioner Family; PCP Internal Medicine
DX: J06.9 Acute upper respiratory infection, unspecified (principal); E11.9 Type 2 diabetes mellitus without complications; Z79.84 Long term (current) use of oral hypoglycemic drugs; K21.9 Gastro-esophageal reflux disease without esophagitis; E78.5 Hyperlipidemia, unspecified; I10 Essential (primary) hypertension; E03.9 Hypothyroidism, unspecified; Z79.82 Long term (current) use of aspirin
CPT/HCPCS: 99213; G0463

== ENCOUNTER 2023-07-23 09:15 | Outpatient (CLI) | payer OTHER, SELFPAY ==
--- NOTE | 2023-08-05 10:06 | WPDHOMESLEEP ---
Sleep Study - Home Unattended Date of Study: 07/23/23 Ordering Provider: Cassandra Ross DO Interpreting Provider: Iva Weeks MD Home Sleep Study Type: Watch PAT Height: 1.65 m Weight: 100.244 kg Body Mass Index: 36.8 Neck Circumference (inches): 17 [place]: 7 Reason for Sleep Study Fatigue, elevated BMI, diabetes Sleep History Emir Hilton is a 53-year-old woman with diabetes, elevated liver enzymes, GERD, hypertension and other medical comorbidities. She was establishing new care with her primary Dr. Ross, had a discussion about her sleep, with concerns that she had obstructive sleep apnea. I do not have her sleep questionnaire to review, therefore details about her sleep are not available. She[ ] wakes at night with heartburn, belching or coughing.??She[ ] snores,[ ] snores loudly enough that others complain. She[ ] has trouble sleeping when she has a cold. She[ ] wakes up gasping for breath during the night. She[ ] has breathing problems at night. She[ ] sweats excessively at night. She[ ] notices her heart pounding or beating irregularly during the night. She[ ]falls asleep during the day. She[ ] falls asleep involuntarily,[ ] falls asleep while driving. She[ ] experiences loss of muscle tone with strong emotion. She[ ] feels paralyzed on waking or falling asleep. She[] experiences vivid dreams upon waking or falling asleep. She[ ] feels afraid of going to sleep. She[ ] has nightmares. She[ ] recalls her dreams. She[] has thoughts racing through her mind. She[ ] feels sad or depressed. She[ ] feels anxiety. She[ ] notices parts of her body jerk. She[ ] kicks during the night. She[ ] feels crawling or aching feelings in her legs. She[] feels leg pain at night. She[ ] has morning jaw pain, and [] grinds her teeth at night. She[ ] feels bothered by pain during the day, is[ ] awakened by pain during the night. She[ ] wakes up feeling stiff in the morning, [] wakes feeling sore or achy in the morning. She[] awakens with pain in her neck, spine, or joints. Normal bedtime is[ ], falling asleep[], waking[] times at night. She wakes at [], reports getting [] hours of sleep per night. Habits:??Tobacco:[ ] Caffeine:[ ]. Alcohol:[ ] Recreational substances: none PMFSH Past Medical History Medical History Allergies Anxiety Asthma delivery delivered Diabetes Type 2 GERD (gastroesophageal reflux disease) Hx of nephrolithotomy with removal of calculi Hyperlipidemia Hypertension Hypothyroid Surgical History Surgical History H/O: hysterectomy History of inguinal hernia repair Family History Family History Father Alcoholism Cancer Hypertension Mother Asthma Hypertension Depression Anxiety Thyroid disorder Sibling Alcoholism Hypertension Thyroid disorder Social History Social History Smoking status: Never smoker Second hand tobacco smoke exposure: No Alcohol intake: never Substance use: never Substance use type: does not use Do You Feel Safe in your Home?: Yes Lack of Transportation: No Lack of Food: Never True Current Housing: I Have Housing Concerned About Future Housing: No Difficulty Paying Gas/Electric Bills: No Difficulty Paying for Meds: No Currently Unemployed: No Education: High School Diploma/GED Difficulty w/ Childcare or Family Care: No Living arrangements: with family Occupation/Education: occupation 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
[2023-08-05 11:08] VITALS: BMI 36.8
== END 2023-07-29 13:41 | disposition home or self-care (01) ==
LOC: ANHCSM 09:15
PROVIDERS: PCP Family Medicine; Visit Provider Family Medicine
DX: G47.9 Sleep disorder, unspecified (principal); G47.33 Obstructive sleep apnea (adult) (pediatric)
CPT/HCPCS: 95800

== ENCOUNTER 2023-09-28 08:56 | Outpatient (CLI) | payer OTHER, SELFPAY ==
[2023-09-28 09:33] LABS: Basophils Absolute Auto 0.1 K/mm3 (0.0-0.1); Basophils Percent Auto 1.1 % (0.2-1.2); Eosinophils Absolute Auto 0.2 K/mm3 (0-0.3); Hemoglobin 14.6 g/dL (12.0-15.0); Immature Granulocyte Absolute 0.13 K/mm3 (0.00-0.031); Immature Granulocyte Percent A 1.2 % (0-0.5); Lymphocytes Absolute Auto 2.42 K/mm3 (0.9-3.2); Lymphocytes Percent Auto 22.7 % (18.3-44.2); Mean Corpuscular HGB Conc 31.1 g/dl (32-36); Mean Corpuscular Hemoglobin 26.7 pg (26-34); Mean Corpuscular Volume 86.1 fl (80-100); Mean Platelet Volume 10.9 fl (7.4-10.4); Monocytes Absolute Auto 0.6 K/mm3 (0.1-0.6); Neutrophils Absolute Auto 7.1 K/mm3 (1.3-6.7); Platelet Count Result 262 k/mm3 (150-375); Red Blood Count 5.46 M/mm3 (4.2-5.4); Red Cell Distribution Width 14.1 % (11.5-14.5); White Blood Count 10.7 K/mm3 (4.5-10.0)
[2023-09-28 09:40] LABS: Alanine Aminotransferase 31 U/L (6-35); Albumin Level 4.2 g/dL (3.5-5.1); Alkaline Phosphatase 65 U/L (38-126); Anion Gap 10 mmol/L (4-12); Aspartate Amino Transferase 33 U/L (14-36); Bilirubin,Total 1.4 mg/dL (0.2-1.3); Blood Urea Nitrogen 18 mg/dL (7-17); Calcium 9.2 mg/dL (8.4-10.2); Carbon Dioxide 29 mmol/L (22-30); Chloride 100 mmol/L (98-107); Cholesterol 127 mg/dL (0-200); Estimated Glomerular Filt Rate > 60; Glucose 184 mg/dL (65-110); HDL Direct 41 mg/dL; Potassium 3.9 mmol/L (3.4-5.0); Sodium 139 mmol/L (137-145); Triglycerides 243 mg/dL (<150)
[2023-09-28 09:48] LABS: Hemoglobin A1C 8.9 % (<5.7)
[2023-09-28 09:51] LABS: LDL Cholesterol Direct 60 mg/dL
[2023-09-28 10:11] LABS: Free T4 Free Thyroxine 1.66 ng/mL (0.78-2.19)
[2023-09-28 10:26] LABS: Hepatitis B Surface Antigen Negative (Negative)
[2023-09-28 10:31] LABS: HAV RESULT Negative (Negative); Hepatitis B Core IgM Result Negative (Negative)
[2023-09-28 10:43] LABS: Hepatitis C Virus Antibody Negative (Negative)
== END 2023-09-28 08:57 | disposition home or self-care (01) ==
PROVIDERS: PCP Family Medicine; Visit Provider Family Medicine
DX: K51.90 Ulcerative colitis, unspecified, without complications (principal); E78.5 Hyperlipidemia, unspecified; E11.69 Type 2 diabetes mellitus with other specified complication; E55.9 Vitamin D deficiency, unspecified; I10 Essential (primary) hypertension; R74.8 Abnormal levels of other serum enzymes
CPT/HCPCS: 36415; 80053; 80061; 80074; 82306; 83036; 84439; 85025

== ENCOUNTER 2023-09-30 07:14 | Outpatient (NON) | payer OTHER, SELFPAY | END 2023-09-30 07:15 | disposition home or self-care (01) | LOC: ANHLAB 07:14 | PROVIDERS: PCP Family Medicine; Visit Provider Family Medicine | DX: E65 Localized adiposity (principal) | CPT/HCPCS: 82530 ==

== ENCOUNTER 2023-11-13 14:20 | Outpatient (CLI) | payer OTHER, SELFPAY ==
[2023-11-13 15:06] LABS: Add Urine Microscopic? YES; Appearance Urine Cloudy (Clear); Bacteria Urine Rare /hpf; Bilirubin Urine Negative (Negative); Blood Urine Negative (Negative); Color Urine Yellow (Yellow); Glucose Urine UA 3+ mg/dL (Negative); Ketones Urine Negative (Negative); Leukocyte Esterase Ur 1+ LEU/UL (Negative); Nitrate Urine Negative (Negative); Non Pathogenic Casts 0-2; Protein Urine 1+ mg/dL (Negative); Specific Grav Ur 1.037 (1.001-1.035); Squamous Epithelial Cell Urine Occasional /hpf (Few); Urobilinogen Urine 0.2 mg/dL (<2.0); WBC Urine >100 /hpf (0-3); pH Urine 5.5 (5.0-9.0)
== END 2023-11-13 14:21 | disposition home or self-care (01) ==
LOC: ANHLAB 14:24
PROVIDERS: PCP Family Medicine; Visit Provider Family Medicine
DX: R30.0 Dysuria (principal)
CPT/HCPCS: 81001

== ENCOUNTER 2023-11-15 16:19 | Emergency (ER) | payer OTHER, SELFPAY ==
--- NOTE | 2023-11-15 16:36 | ED.ABDPAIN ---
HPI - Abdominal Pain General Chief Complaint: Urogenital-Female Stated Complaint: uti Time Seen by Provider: 11/15/23 16:43 Source: patient, RN notes reviewed and old records reviewed Mode of arrival: ambulatory Limitations: no limitations History of Present Illness HPI narrative: patient presents with complaints of urinary frequency, burning, urgency for 3 days. She denies any injury or trauma. She denies any fever, chills, sweats. She denies any abdominal pain. Denies back pain. Denies any fever, chills, sweats. Denies any janet blood Related Data Home Medications Medication Instructions Recorded Confirmed allopurinol 100 mg tablet 100 mg PO DAILY 10/23/19 11/15/23 atorvastatin 40 mg tablet 40 mg PO DAILY 10/23/19 11/15/23 gabapentin 300 mg capsule 600 mg PO QPM 10/23/19 11/15/23 levothyroxine 137 mcg tablet 137 mcg PO DAILY 10/23/19 11/15/23 metoprolol succinate 50 mg 50 mg PO DAILY 10/23/19 11/15/23 tablet,extended release 24 hr omeprazole 20 mg capsule,delayed 20 mg PO DAILY 10/23/19 11/15/23 release valsartan 160 1 tablet PO DAILY 10/23/19 11/15/23 mg-hydrochlorothiazide 25 mg tablet aspirin 81 mg tablet 81 mg PO DAILY 03/14/20 11/15/23 icosapent ethyl 1 gram capsule 2 g PO BID 11/01/20 11/15/23 (Vascepa) buspirone 10 mg tablet 10 mg PO BID 06/27/23 11/15/23 dapagliflozin propanediol 5 mg 10 mg PO DAILY 06/27/23 11/15/23 tablet (Farxiga) ergocalciferol (vitamin D2) 1,250 1,250 mcg PO WEEKLY 06/27/23 11/15/23 mcg (50,000 unit) capsule Allergies Allergy/AdvReac Type Severity Reaction Status Date / Time Iodinated Contrast Media Allergy Hives Verified 11/15/23 16:31 Review of Systems Review of Systems: All systems reviewed & are unremarkable except as noted in HPI and below Constitutional: Constitutional: Reports no additional constitutional complaints ENT: Reports system reviewed and no additional complaints, except as documented Cardiovascular: Cardiovascular: Reports no additional cardiovascular complaints Respiratory: Respiratory: Reports no additional respiratory complaints Gastrointestinal: Gastrointestinal: Reports no additional gastrointestinal complaints Genitourinary: Genitourinary: Reports no additional female genitourinary complaints, Reports as per HPI, Reports nocturia, Reports dysuria, Reports urinary hesitancy and Reports urinary urgency PMFSH Past Medical History Medical History Allergies Anxiety Asthma delivery delivered Diabetes Type 2 GERD (gastroesophageal reflux disease) Hx of nephrolithotomy with removal of calculi Hyperlipidemia Hypertension Hypothyroid Surgical History Surgical History H/O: hysterectomy History of inguinal hernia repair Family History Family History Father Alcoholism Cancer Hypertension Mother Asthma Hypertension Depression Anxiety Thyroid disorder Sibling Alcoholism Hypertension Thyroid disorder Social History Social History Smoking status: Never smoker Second hand tobacco smoke exposure: No Alcohol intake: never Substance use: never Substance use type: does not use Do You Feel Safe in your Home?: Yes Lack of Transportation: No Lack of Food: Never True Current Housing: I Have Housing Concerned About Future Housing: No Difficulty Paying Gas/Electric Bills: No Difficulty Paying for Meds: No Currently Unemployed: No Education: High School Diploma/GED Difficulty w/ Childcare or Family Care: No Living arrangements: with family Occupation/Education: occupation 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
[2023-11-15 16:37] VITALS: BP 117/77; PULSE 87; RESP 16; TEMP 36.8; O2SAT 96
[2023-11-15 16:44] LABS: EDUAAPPEAR Cloudy; EDUABILI Negative (Negative); EDUABLOOD 2+ (Negative); EDUACOLOR1 Light/Pale; EDUAGLUCOSE 3+ (Negative); EDUAKETONE Negative (Negative); EDUALEUKO Trace (Negative); EDUANITRATE Negative (Negative); EDUAPH 5.5; EDUAPROTEIN 2+ (Negative); EDUAUROBILI 0.2
== END 2023-11-15 16:53 | disposition home or self-care (01) ==
PROVIDERS: Emergency Provider Nurse Practitioner Family; PCP Family Medicine
DX: N39.0 Urinary tract infection, site not specified (principal); B96.20 Unspecified Escherichia coli [E. coli] as the cause of diseases classified elsewhere; J45.909 Unspecified asthma, uncomplicated; E11.9 Type 2 diabetes mellitus without complications; K21.9 Gastro-esophageal reflux disease without esophagitis; E78.5 Hyperlipidemia, unspecified; I10 Essential (primary) hypertension; E03.9 Hypothyroidism, unspecified; F41.9 Anxiety disorder, unspecified; Z79.82 Long term (current) use of aspirin
CPT/HCPCS: 81003; 87077; 87086; 87186; 99213; G0463

== ENCOUNTER 2023-11-21 12:46 | Outpatient (CLI) | payer OTHER, SELFPAY ==
[2023-11-21 13:14] LABS: Add Urine Microscopic? NO; Appearance Urine Clear (Clear); Bilirubin Urine Negative (Negative); Blood Urine Negative (Negative); Color Urine Yellow (Yellow); Glucose Urine UA 3+ mg/dL (Negative); Ketones Urine Negative (Negative); Leukocyte Esterase Ur Negative LEU/UL (Negative); Nitrate Urine Negative (Negative); Protein Urine Negative (Negative); Specific Grav Ur 1.039 (1.001-1.035); Urobilinogen Urine 0.2 mg/dL (<2.0); pH Urine 5.5 (5.0-9.0)
== END 2023-11-21 12:47 | disposition home or self-care (01) ==
LOC: ANHLAB 12:48
PROVIDERS: PCP Family Medicine; Visit Provider Family Medicine
DX: N39.0 Urinary tract infection, site not specified (principal)
CPT/HCPCS: 81003

== ENCOUNTER 2023-11-28 08:40 | Outpatient (CLI) | payer OTHER, SELFPAY ==
[2023-12-23 09:16] VITALS: BMI 36.2
--- NOTE | 2023-12-23 09:16 | WPDSLEEPSTUD ---
Sleep Study Date of Study: 11/28/23 Ordering Provider: Cassandra Ross DO Interpreting Physician: Cassandra Ross DO Sleep Study Type: CPAP Titration Height: 1.65 m Weight: 98.883 kg Body Mass Index: 36.2 Neck Circumference (inches): 17 [place]: 7 Reason for Sleep Study WatchPAT home sleep test on 07/23/2023 that showed an overall AHI of 24.2 with desaturation down to 76%. Sleep History Emir Hilton is a 53-year-old woman with diabetes, elevated liver enzymes, GERD, hypertension and other medical comorbidities. She was establishing new care with her primary Dr. Ross, had a discussion about her sleep, with concerns that she had obstructive sleep apnea. I do not have her sleep questionnaire to review, therefore details about her sleep are not available. [facility] Past Medical History Medical History Allergies Anxiety Asthma delivery delivered Diabetes Type 2 GERD (gastroesophageal reflux disease) Hx of nephrolithotomy with removal of calculi Hyperlipidemia Hypertension Hypothyroid Surgical History Surgical History H/O: hysterectomy History of inguinal hernia repair Family History Family History Father Alcoholism Cancer Hypertension Mother Asthma Hypertension Depression Anxiety Thyroid disorder Sibling Alcoholism Hypertension Thyroid disorder Social History Social History Smoking status: Never smoker Second hand tobacco smoke exposure: No Alcohol intake: never Substance use: never Substance use type: does not use Do You Feel Safe in your Home?: Yes Lack of Transportation: No Lack of Food: Never True Current Housing: I Have Housing Concerned About Future Housing: No Difficulty Paying Gas/Electric Bills: No Difficulty Paying for Meds: No Currently Unemployed: No Education: High School Diploma/GED Difficulty w/ Childcare or Family Care: No Living arrangements: with family Occupation/Education: occupation 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 Gender identity (if verbalized by the patient): Female Spiritual care concerns: No Agree to blood products: Yes Medications Home Medications Medication Instructions Recorded Confirmed Type allopurinol 100 mg tablet 100 mg PO DAILY 10/23/19 12/02/23 History atorvastatin 40 mg tablet 40 mg PO DAILY 10/23/19 12/02/23 History gabapentin 300 mg capsule 600 mg PO QPM 10/23/19 12/02/23 History levothyroxine 137 mcg tablet 137 mcg PO DAILY 10/23/19 12/02/23 History metoprolol succinate 50 mg 50 mg PO DAILY 10/23/19 12/02/23 History tablet,extended release 24 hr omeprazole 20 mg capsule,delayed 20 mg PO DAILY 10/23/19 12/02/23 History release valsartan 160 1 tablet PO DAILY 10/23/19 12/02/23 History mg-hydrochlorothiazide 25 mg tablet aspirin 81 mg tablet 81 mg PO DAILY 03/14/20 12/02/23 History icosapent ethyl 1 gram capsule 2 g PO BID 11/01/20 12/02/23 History (Vascepa) buspirone 10 mg tablet 10 mg PO BID 06/27/23 12/02/23 History ergocalciferol (vitamin D2) 1,250 1,250 mcg PO WEEKLY 06/27/23 12/02/23 History mcg (50,000 unit) capsule balsalazide 750 mg capsule See Rx Instructions .Route 08/14/23 12/02/23 Rx .COMPLEX #270 caps semaglutide 2 mg/dose (8 mg/3 mL) 2 mg (0.75 mL) subcut WEEKLY #3 mL 11/07/23 12/02/23 Rx subcutaneous pen injector (Ozempic) metformin 1,000 mg tablet 1,000 mg PO BIDWMEAL #180 tabs 11/26/23 12/02/23 Rx phenazopyridine 100 mg tablet 100 mg PO TID PRN pain 6 doses #6 12/02/23 12/02/23 Rx (Pyridium) tabs dapagliflozin propanediol 5 mg 10 mg PO DAILY #90 tabs 12/09/23 Rx tablet (Farxiga) Sleep Procedure A full night polysomnogram using the Certus multi-channel system recorded the standard physiologic parameters including EEG, EOG, submentalis EMG, anterior tibialis EMG, EKG, body position, nasal and oral airflow using nasal pressure sensor and thermistor.? Respiratory parameters of chest and abdominal movements were recorded with Respiratory Inductance Plethysmography belts. Oxygen saturation was recorded by pulse oximetry. Video monitoring was also performed. Sleep stages, periodic limb movements, and EEG arousals were scored in 30 second epochs according to the criteria of the AASM Scoring Manual. The Apnea-Hypopnea Index was calculated using [facility] guidelines for definition of hypopnea with 4% O2 desaturations while scoring respiratory events. Sleep Architecture The total recording time was 536.7 minutes.? The total sleep time was 356.5 minutes. Sleep latency was 22.7 minutes. REM latency was 274.5 minutes. Sleep efficiency was 66.4%. The patient had 34 awakenings for an awakening index of 5.7. Wake after Sleep Onset time was 157.5 minutes. The patient spent 44.5 minutes, 12.5% of total sleep time in Stage N1. The patient spent 215.0 minutes, 60.3% in Stage N2. The patient spent 51.0 minutes, 14.3% in Stage N3. The patient spent 46.0 minutes, 12.9% in Stage REM. Respiratory Analysis The patient had 8 hypopneas for an overall Apnea Hypopnea Index of 1.3 events per hour. The REM Apnea Hypopnea Index was 2.6. The NREM Apnea Hypopnea Index was 1.2. The patient had a Central Apnea Hypopnea Index of 0. There were 2 Respiratory Effort Related Arousals resulting in a RERA index of 0.3 events per hour. The Respiratory Disturbance Index is 1.7 events per hour. There was no evidence of Rip-Alarcon Respirations. The patient was started on CPAP 5 cm H2O and titrated to CPAP 10 cm H2O due to hypopneas. The patient was able to fall asleep starting on CPAP 5 cm H2O. The patient was able to achieve REM sleep starting at CPAP 10 cm H2O. The patient was able to achieve a residual AHI less than 5 with both NREM and REM sleep on the final pressure. On CPAP 10 cm H2O, the patient spent 187 minutes in NREM and 46 minutes in REM with 6 hypopneas, resulting in an AHI of 1.5. The patient had a sleep efficiency of 86.8% on this pressure setting. Arousals There were 218 total arousals for an arousal index of 36.7. There were 96 spontaneous arousals for an index of 16.2. ?There were 3 arousals due to respiratory events for an index of 0.5. There were 108 arousals due to periodic limb movements for an index of 18.2.? There were 13 arousals due to isolated limb movements for an index of 2.2. Periodic Limb Movements The patient had 47 isolated limb movements with an index of 7.9. The patient had 568 periodic limb movements with index of 95.6, which is elevated (normal <15). Patient had a total of 615 limb movements with a total limb movement index of 103.5. Oximetry Data The patient had an average oxygen saturation of 90.7% in sleep with a minimum oxygen saturation of 85.0% and a maximum oxygen saturation of 97.0%. The patient had 17 oxygen desaturations that were 4% or greater resulting in an Oxygen Desaturation Index of 2.9.? The patient spent 68.3 minutes, 13.1% of total sleep time with an oxygen saturation below 88%. Snoring Profile Snoring was not present during this study. Cardiac Profile The EKG showed normal sinus rhythm. No arrhythmias or PVCs were seen. The patient had an average pulse rate of 70.7 bpm with a minimum pulse rate of 59.0 bpm and a maximum pulse rate of 98.0 bpm. ? EEG Profile No signs of seizure activity seen. Assessment and Plan Assessment and Plan (1) Obstructive sleep apnea: Code(s): G47.33 - Obstructive sleep apnea (adult) (pediatric) Status: Acute Assessment and Plan: The patient was started on CPAP 5 cm H2O and titrated to CPAP 10 cm H2O due to hypopneas. I recommend that the patient be prescribed Resmed CPAP at 10 cm H2O, size small Resmed N30i UTN nasal mask, CPAP filters/tubing and heated humidity. This should be used with all episodes of sleep.? Compliance should be reviewed within 31-90 days of starting therapy for usage greater than 4 hours per night greater than 70% of the nights. The patient should be asked about symptoms such as?excessive daytime sleepiness, quality of sleep, decreased nocturia, increased?mental functioning such as memory, mood, and concentration. The patient had a significant number of limb movements during the study with the majority being periodic in nature. I recommend that the patient have a serum ferritin drawn for evaluation of iron deficiency anemia. If the patient has a serum ferritin less than 75 ng/mL, I recommend starting a daily iron supplement and a Vitamin C supplement for better absorption. If the serum ferritin is greater than 75 ng/mL, I recommend starting a dopamine agonist and titrating the dose until symptoms resolve. There are nonpharmacological methods to treat limb movements including daily exercise, stretching calf muscles before bed, avoiding excessive amounts of caffeine and alcohol, vitamin B supplementation, magnesium lotion massaged into legs before bed, and use of a weighted blanket. Data The data obtained during this sleep study is adequate for interpretation. Certification This sleep study has been reviewed by a board certified sleep medicine physician.
== END 2023-11-29 06:21 | disposition home or self-care (01) ==
LOC: ANHCSM 08:40
PROVIDERS: PCP Family Medicine; Visit Provider Family Medicine
DX: G47.33 Obstructive sleep apnea (adult) (pediatric) (principal)
CPT/HCPCS: 95811

== ENCOUNTER 2023-12-02 19:01 | Outpatient (NON) | payer OTHER, SELFPAY ==
[2023-12-02 19:39] LABS: Add Urine Microscopic? YES; Appearance Urine Cloudy (Clear); Bacteria Urine None Seen /hpf; Bilirubin Urine Negative (Negative); Blood Urine Trace (Negative); Color Urine Yellow (Yellow); Glucose Urine UA 3+ mg/dL (Negative); Ketones Urine Trace mg/dL (Negative); Leukocyte Esterase Ur 1+ LEU/UL (Negative); Nitrate Urine Negative (Negative); Non Pathogenic Casts 0-2; Protein Urine 1+ mg/dL (Negative); Specific Grav Ur 1.039 (1.001-1.035); Squamous Epithelial Cell Urine Occasional /hpf (Few); Urobilinogen Urine 0.2 mg/dL (<2.0); WBC Urine >100 /hpf (0-3); pH Urine 5.5 (5.0-9.0)
== END 2023-12-02 19:02 | disposition home or self-care (01) ==
LOC: ANHLAB 19:05
PROVIDERS: PCP Internal Medicine; Visit Provider Clinical Nurse Specialist
DX: N39.0 Urinary tract infection, site not specified (principal)
CPT/HCPCS: 81001; 87077; 87086; 87186

== ENCOUNTER 2024-01-14 12:58 | Outpatient (CLI) | payer OTHER, SELFPAY ==
[2024-01-14 14:42] LABS: Hemoglobin A1C 6.7 % (<5.7)
== END 2024-01-14 12:59 | disposition home or self-care (01) ==
LOC: ANHLAB 12:59
PROVIDERS: PCP Family Medicine; Visit Provider Family Medicine
DX: D64.9 Anemia, unspecified (principal); E11.9 Type 2 diabetes mellitus without complications
CPT/HCPCS: 36415; 82728; 83036

== ENCOUNTER 2024-01-27 16:13 | Outpatient (CLI) | payer OTHER, SELFPAY ==
--- NOTE | ~2024-01-27 | US_ITS ---
EXAMINATION: US thyroid DATE: 01/27/2024 17:20 INDICATION: Type 2 diabetes without combination. Thyroid nodule. TECHNIQUE: Multiple ultrasound images of the thyroid were obtained. COMPARISON: None. FINDINGS: The right thyroid lobe measures 6.9 x 2.1 x 1.0 cm. The left thyroid lobe measures 4.9 x 1.1 x 1.4 c m. In the right thyroid lobe, there is a 12 mm solid, hypoechoic, wider than tall nodule with smooth margin without echogenic foci (TI-RADS TR4). In the right thyroid lobe, there is a 13 mm cystic nodu le (TR1). In the left thyroid lobe, there is a 17 mm solid, hypoechoic, wider than tall nodule with s mooth margin without echogenic foci (TR4). IMPRESSION: 1. Thyroid nodules. Based solely on this exam, biopsy would be recommended for the 17 mm left thyroid nodule. The patient reports a history of a benign biopsy. Correlate with prior outside imaging. Reviewed, dictated and finalized at location A. ICAL ENGINEERING PROFESSOR IMPRESSION: 1. Thyroid nodules. Based solely on this exam, biopsy would be recommended for the 17 mm left thyroid nodule. The patient reports a history of a benign biopsy . Correlate with prior outside imaging.
== END 2024-01-27 16:14 | disposition home or self-care (01) ==
LOC: ANHIMG 16:15
PROVIDERS: PCP Family Medicine; Visit Provider Nurse Practitioner Family
DX: E11.69 Type 2 diabetes mellitus with other specified complication (principal); E78.5 Hyperlipidemia, unspecified; I10 Essential (primary) hypertension; E04.1 Nontoxic single thyroid nodule
CPT/HCPCS: 76536

== ENCOUNTER 2024-02-03 10:24 | Outpatient (CLI) | payer OTHER, SELFPAY ==
[2024-02-03 11:05] LABS: Add Urine Microscopic? YES; Appearance Urine Cloudy (Clear); Bacteria Urine 2+ /hpf; Bilirubin Urine Negative (Negative); Blood Urine 2+ (Negative); Color Urine Yellow (Yellow); Glucose Urine UA 3+ mg/dL (Negative); Ketones Urine Negative (Negative); Leukocyte Esterase Ur 2+ LEU/UL (Negative); Need Manual Microscopic Reviewed; Nitrate Urine Negative (Negative); Non Pathogenic Casts 0-2; Protein Urine 1+ mg/dL (Negative); RBC Urine 51-100 /hpf (0-2); Specific Grav Ur 1.042 (1.001-1.035); Squamous Epithelial Cell Urine Moderate /hpf (Few); Urobilinogen Urine 0.2 mg/dL (<2.0); WBC Urine >100 /hpf (0-3)
== END 2024-02-03 10:25 | disposition home or self-care (01) ==
LOC: ANHLAB 10:26
PROVIDERS: PCP Family Medicine; Visit Provider Clinical Nurse Specialist
DX: R39.9 Unspecified symptoms and signs involving the genitourinary system (principal)
CPT/HCPCS: 81001; 87086

== ENCOUNTER 2024-03-24 13:33 | Outpatient (CLI) | payer OTHER, SELFPAY ==
--- NOTE | ~2024-03-24 | US_ITS ---
EXAMINATION: US arterial ankle brachial ind DATE: 03/24/2024 14:20 INDICATION: Claudication and decreased pulses in the lower extremities TECHNIQUE: Segmental pressures and plethysmographic and Doppler waveforms of the brachial and lower e xtremity arteries were obtained. COMPARISON: None. FINDINGS: Right and left brachial artery pressures of 102 mm Hg and 105 mm Hg, respectively, are concordant (no rmal difference <= 30 mmHg). The right ankle-brachial index (LIYA) is 1.15 (normal >= 0.9-1.0). The right great toe-brachial index (TBI) is 0.63 (normal >= 0.65). Arterial Doppler waveforms demonstrate brisk systolic upstrokes at francisco javier th right posterior tibial and dorsalis pedis arteries. The left LIYA is 1.05. The left TBI is 0.91. Arterial Doppler waveforms demonstrate brisk systolic ups trokes at both left posterior tibial and dorsalis pedis arteries. IMPRESSION: 1. Mild arterial occlusive disease to the right lower limb with mildly decreased right TBI but normal LIYA. 2. No significant arterial occlusive disease to the left lower limb with normal left LIYA and TBI. Reviewed, dictated and finalized at location A. [facility] IMPRESSION: 1. Mild arterial occlusive disease to the right lower limb with mildly decrease d right TBI but normal LIYA. 2. No significant arterial occlusive disease to the left lower limb with normal left LIYA and TBI.
--- OUTSIDE RECORDS SUMMARY | 2024-03-24 14:25 | XMS_ITS | Patient Health Summary ---
Author Organization [facility] Address [address] [place] [address] Care Team Providers Care Tire Classifier Name Role Phone Patrick Romero MD Primary Care Provider Note from [facility],non-owned Affiliates and Associated Physician Practices is amultiple site organization consisting of ambulatory clinics and hospital sitesin [place], [place], [place] and [place]. This disclosure is being madepursuant to the Care Everywhere program and may not contain all information available regarding this patient. Last updated 17.[facility] Social History Tobacco Use Types Packs/Day Years Used Date Smoking Tobacco: Never Assessed Sex and Gender Information Value Date Recorded Sex Assigned at Not on file Gender Identity Not on file Sexual Orientation Not on file Care Teams Tire Classifier Relationship Specialty Start Date End Date Patrick Romero MD [address] [facility] [address] [place] [id number] PCP - General 06/08/20
--- OUTSIDE RECORDS SUMMARY | 2024-03-24 14:25 | XMS_ITS | Clinical Summary ---
Author Organization [facility] Address [address] [place] [id number] Care Team Providers Care Orthotist Name Role Phone Patrick Romero MD Primary Care Provider [phone] Social History Tobacco Use Types Packs/Day Years Used Date Smoking Tobacco: Never Assessed Comments Unknown Sex and Gender Information Value Date Recorded Sex Assigned at Not on file Legal Sex Female 2:29 PM EST Gender Identity Not on file Sexual Orientation Not on file Plan of Treatment Health Maintenance Due Date Last Done Comments Breast Cancer Screening 1970 Hepatitis B Vaccine (1 of 3 - 19+ 3-dose series) 1989 Colorectal Cancer Screening: Annual FOBT 2019 Colorectal Cancer Screening: Colonoscopy 2019 Colorectal Cancer Screening: Sigmoidoscopy 2019 Influenza Vaccine (#1) 2023 Pneumococcal Vaccine: Pediat rics (0 to 5 Years) and At-Risk Patients (6 to 64 Years) Aged Out No longer eligible b ased on patient's age to complete this topic [place] [address] [place] [address] [place] Care Teams Orthotist Relationship Specialty [place] [address] [place] [address], [address] [place] [address] PCP - General Internal Medicine 03/22/22
--- OUTSIDE RECORDS SUMMARY | 2024-03-24 14:25 | XMS_ITS | CONTINUITY OF CARE DOCUMENT ---
Author Name bianca, bianca Address Unknown Organization [facility] Address [address] [place] [address] Phone [phone] Care Team Providers Care Net Programmer Name Role Phone Gallo Johnson MD Unavailable CAMERON CAM MD Unavailable CAMERON CAM MD Unavailable [phone] PROBLEMS Condition Status Date Provider Notes Cardiology examination completed 9 - Gallo Johnson MD HTN essential active Gallo Johnson MD Chest pain-type to be determined active Pako Johnson MD PVC's active Gallo Johnson MD Hypertriglyceridemia active Gallo elias MD Family history of heart disease active Misa Johnson MD DM - type 2 active Gallo Johnson MD CAROLANN- on CPAP active Gallo Johnson MD Family History of Hypertension: completed - Gallo Johnson MD ENCOUNTERS Date Type Provider Location Encounter Diag nosis - In-person encounter Office Visit Gallo Johnson MD [facility] - In-person encounter Office Visit Gallo Johnson MD [facility] Hypertriglyceridemia - In-person encounter Office Visit Gallo Johnson MD [facility] - In-person encounter Office Visit Gallo Johnson MD [facility] - In-person encounter Office Visit Gallo Johnson MD [facility] - In-person encounter Office Visit Gallo Johnson MD [facility] Cardiology examinationFamily History of Hypertension:PVC's - In-person encounter Office Visit Gallo Johnson MD [facility] HTN essentialOSA- on CPAPDM - type 2Chest pain-type to be determinedFamily history of heart disease VITAL SIGNS Date Observation Value Provider Body Mass Index (Ratio) 37.76 kg/m2 Misa Johnson MD blood pressure, cuff size regular Ke rri Liliam blood pressure, diastolic 80 mm[Hg] [facility], systolic 130 mm[Hg] Sage ri Jessy oxygen saturation, oximetry 97 % Marisol Ricketts respiratory rate E&M 12 /min [facility] pulse rate 82 /min Marisol Hall [facility] weight E&M 234 [lb_av] Marisol Hall [facility] height E&M 66 [in_i] Marisol Hall er Body Mass Index (Ratio) 40.19 kg/m2 Misa Johnson MD blood pressure, diastolic 69 mm[Hg] Li nkLogic blood pressure, systolic 112 mm[Hg] Tiera kLogic blood pressure, diastolic 69 mm[Hg] Mi domingo Garrison blood pressure, systolic 112 mm[Hg] Jose helashley Garrison oxygen saturation, oximetry 97 % Casi Garrison pulse rate 81 /min Casi odell weight E&M 249 [lb_av] Casi odell respiratory rate E&M 16 /min Jelly marcelo Garrison blood pressure, cuff size large [address] [place] height E&M 66 [in_i] Casi odell Body Mass Index (Ratio) 39.38 kg/m2 Misa Johnson MD pulse rate 83 /min Ana Anderson blood pressure, diastolic 78 mm[Hg] Te ri Anderson blood pressure, systolic 116 mm[Hg] Ter i Anderson oxygen saturation, oximetry 96 % Ana Anderson respiratory rate E&M 15 /min Ana [facility] weight E&M 244 [lb_av] Ana Anderson Body Mass Index (Ratio) 38.73 kg/m2 Misa Johnson MD blood pressure, cuff size large [address] [place] blood pressure, diastolic 76 mm[Hg] [address] [place] blood pressure, systolic 136 mm[Hg] [facility] carmelo [place] oxygen saturation, oximetry 97 % Casi Garrison respiratory rate E&M 16 /min Jelly robertson Garrison pulse rate 103 /min Casi odell weight E&M 240 [lb_av] Casi odell height E&M 66 [in_i] Casi odell Body Mass Index (Ratio) 39.54 kg/m2 Misa Johnson MD blood pressure, diastolic 68 mm[Hg] Li nkLogic blood pressure, systolic 121 mm[Hg] Tiera kLogic blood pressure, diastolic 68 mm[Hg] Ch astity Kala blood pressure, systolic 121 mm[Hg] Leigh stity Kala oxygen saturation, oximetry 96 % Chastity Kala pulse rate 81 /min Chastity Kala respiratory rate E&M 16 /min Chastit y Kala weight E&M 245 [lb_av] Chastity Kala height E&M 66 [in_i] Chastity Kala Body Mass Index (Ratio) 39.06 kg/m2 Misa Johnson MD blood pressure, resting Yes Tons thompson Rodriguez respiratory rate E&M 16 /min Tonsha Rodriguez pulse rate 86 /min [facility] Rodriguez oxygen saturation, oximetry 97 % [facility] Rodriguez blood pressure, diastolic 65 mm[Hg] To nsha Rodriguez blood pressure, systolic 116 mm[Hg] Ton [facility] weight E&M 242 [lb_av] Tonsha Rodriguez height E&M 66 [in_i] Tonsha Rodriguez Body Mass Index (Ratio) 39.86 kg/m2 Misa Johnson MD blood pressure, diastolic 84 mm[Hg] Ch astity Kala blood pressure, systolic 133 mm[Hg] Leigh stity Kala oxygen saturation, oximetry 97 % Chastity Kala pulse rate 109 /min Chastity Kala respiratory rate E&M 18 /min Chastit y Kala height E&M 66 [in_i] Chastity Kala weight E&M 247 [lb_av] Chastity Kala temperature site temporal Jody Tank sley temperature E&M 97.3 [degF] Jody Tanks ernestine ALLERGIES Allergy Name Onset Date Reaction Criticality Status IVP DYE Hives Hives Low Criticality active RESULTS Date Observation Value Provider Reference Range Interpretation Location 1 magnesium, serum 1.7 mg/dL [facility] 1.6-2.3 1 free thyroxine index 3.9 [facility] 1.2-4.9 1 triiodothyronine resin uptake 31 % [facility] 24-39 1 thyroxine, serum, total 12.7 ug/dL [facility] 4.5-12.0 High 1 thyroid stimulating hormone, serum 2.640 u[IU]/mL [facility] 0.450-4.500 1 lipoprotein, beta, serum, point, quantitative, calculated 28 mg/dL [facility] 0-99 1 very low density lipoproteins 35 mg/dL [facility] 5-40 1 HDL cholesterol, serum 26 mg/dL [facility] >39 Low 1 triglyceride, serum, random 174 mg/dL [facility] 0-149 High 1 cholesterol, serum 89 mg/dL [facility] 100-199 Low 1 calcium, serum 9.9 mg/dL [facility] 8.7-10.2 1 carbon dioxide, venous blood 28 mmol/L [facility] 20-29 1 chloride, serum 92 mmol/L [facility] 96-106 Low 1 potassium, serum 5.3 mmol/L [facility] 3.5-5.2 High 1 sodium, serum 136 mmol/L [facility] 233-624 9056/07/3 1 urea nitrogen/creatinine ratio, serum 13 [facility] 9-23 1 eGFR if 107 mL/min/{1 .73_m2} [facility] >59 1 eGFR if not 92 mL/min/{1 .73_m2} [facility] >59 1 creatinine, serum 0.76 mg/dL [facility] 0.57-1.00 1 urea nitrogen, blood 10 mg/dL [facility] 6-24 1 blood glucose, random 213 mg/dL [facility] 65-99 High HISTORY OF MEDICATION USE Medication Status Instructions Dates Provider Indications Com ments Farxiga 10 mg tablet active Gallo Johnson MD metformin 500 mg tablet extended release 24 hr active Gallo Johnson MD metoprolol succinate 50 mg tablet extended release 24 hr active Take 1 tablet by mouth once a day Gallo Johnson MD metoprolol succinate 50 mg tablet extended release 24 hr completed Take 1 tablet by mouth once daily - Marisol Ricketts metoprolol succinate 50 mg tablet extended release 24 hr completed Take 1 tablet by mouth once a day - Maxi Menard Vascepa 1 gram capsule active 1 gram by mouth twice a day Alverto Ricardo RN Toprol XL 50 mg tablet extended release 24 hr completed Take 1 tablet by mouth once a day - Gallo Johnson MD magnesium oxide 400 mg (241.3 mg magnesium) tablet active 1 tablet twice a day Gallo Johnson MD Toprol XL 50 mg tablet extended release 24 hr completed 1 tablet once a day - Gallo Johnson MD ACIDOPHILUS PROBIOTIC CAPSULE active 1 capsule once a day Leighstity Kala cholecalciferol (vitamin D3) 25 mcg (1,000 unit) capsule active 1 tablet once a day Leighstity Kala ASPIRIN 81 81 MG ORAL TABLET DELAYED RELEASE active 1 tablet by mouth once a day Leighstity Kala allopurinol 100 mg tablet active Take 1 tablet by mouth twice a day Chastity Kala #60, 30 days supply, Prescribed by LON RAMOS, Filled 05/21/2019 levothyroxine 137 mcg tablet active Take 1 tablet by mouth once a day Chastity Kala #30, 30 days supply, Prescribed by LON RAMOS, Filled 05/26/2019 valsartan-hydroch lorothiazide 160-25 mg tablet active Take 1 tablet by mouth once a day Chastity Kala #30, 30 days supply, Prescribed by AYLIN ELAINE, Filled 06/19/2019 balsalazide 750 mg capsule active 1 tablet once a day Chastity Kala #90, 30 days supply, Prescribed by ALFREDO, NOT PROVIDED, Filled 07/07/2019 atorvastatin 40 mg tablet active Take 1 tablet by mouth once a day Chastity Kala #30, 30 days supply, Prescribed by LON RAMOS, Filled 06/23/2019 gabapentin 300 mg capsule active 2 tablet once a day Chastity Kala #60, 30 days supply, Prescribed by RACHEL, NOT PROVIDED, Filled 06/21/2019 metformin 1,000 mg tablet active 1 tablet twice a day Chastity Kala #60, 30 days supply, Prescribed by RACHEL, NOT PROVIDED, Filled 07/07/2019 SOCIAL HISTORY Date Observation Value Provider drug use no Gallo elias MD alcohol use no Gallo elias MD chewing tobacco use Never Gallo Johnson MD smoking status Never smoker Gallo andres MD social history E&M S moking History: Anibal stanley has never smoked. Gallo Johnson MD social history reviewed E&M revi ewed - no changes required Gallo Johnson MD seatbelt usage 100 % Casi Mcneil and caffeine use, averag e drinks per day 1 /d Casi Garrison chewing tobacco use Never Casi Garrison smoking status Never smoker Casi Mcneil and social history E&M S moking History: Anibal stanley has never smoked. Gallo Johnson MD social history reviewed E&M revi ewed - no changes required Gallo Johnson MD seatbelt usage 100 % Ana Lassiter caffeine use, averag e drinks per day 1 /d Ana Lassiter drug use no Ana Lassiter alcohol use no Ana Lassiter chewing tobacco use Never Ana flood smoking status Never smoker Ana Lassiter social history E&M S moking History: Anibal stanley has never smoked. Gallo Johnson MD social history reviewed E&M revi ewed - no changes required Gallo Johnson MD smoking status Never smoker Casi Mcneil and social history E&M S moking History: Anibal stanley has never smoked. Gallo Johnson MD social history reviewed E&M revi ewed - no changes required Gallo Johnson MD smoking status Never smoker Tiff robertson social history E&M S moking History: Anibal stanley has never smoked. Gallo Johnson MD social history reviewed E&M revi ewed - no changes required Gallo Johnson MD smoking status Never smoker Allegra Rodriguez number of grandchildren Gallo Johnson MD smoking status Never smoker Gallo andres MD social history E&M S moking History: Anibal stanley has never smoked. Gallo Johnson MD social history reviewed E&M revi ewed - no changes required Gallo Johnson MD FAMILY HISTORY Family Member Condition Father AL male <55 Mother [place] female <65 Father Family History of [place] ng Cancer: Mother Family History of Hy pertension: Mother Family History of Di abetes: INSURANCE PROVIDERS Payer name Policy type / Coverage type [employer] [facility] Other [id number] ADVANCE DIRECTIVES Name Date DISCUSSED - NO DECISION MADE TREATMENT PLAN Date Name Performer [id number],C, C bill cole. Start magnesium for 2 weeks. Mag oxide 400mg BID. Check levels in a few weeks. August 10, 2020 c urrently only on metoprolol xl 50 notcies imrpovemnt D ec2020 I mproved on Toprol 50mg continue current dosage. January 31, 2022 W ill obtain telemonitor to see if she is having PVCs Gallo Johnson MD [id number],C,S he is on vascep. Will ontain Lipid panel Gallo Johnson MD [id number],C, T he patient is using CPAP on a regular basis. The patient has been benefiting from therapy and should continue use. Gallo Johnson MD [id number],C, B P today: 112/69 P rior BP: 116/78 (07/26/2021) Labs Reviewed: C reat: 0.76 (09/11/2019) C hol: 89 (09/11/2019) HDL: 26 (09/11/2019) Her updated medication list for this problem includes: Valsartan-hydrochlorothiazide 160-25 Mg Tablet (Valsartan-hydrochlorothiazide) ..... Take 1 tablet by mouth once a day Gallo Johnson MD [id number],C, C bill cole. Start magnesium for 2 weeks. Mag oxide 400mg BID. Check levels in a few weeks. August 10, 2020 c urrently only on metoprolol xl 50 notcies imrpovemnt D ec2020 I mproved on Toprol 50mg continue current dosage. Gallo Johnson MD [id number],C, C ATH 07/27/2019 I MPRESSION: 1 . Normal coronary arteries, 2 . Normal LV function. 3 . Normal SBP. 4 . Elevated LVEDP. August 26, 2019 S xs possibly miscrovascular angina. January 25, 2021 C ath is noted above. Gallo Johnson MD [id number],S, A 1c was 8.0 H er updated medication list for this problem includes: Metformin 1,000 Mg Tablet (Metformin) ..... 1 tablet twice a day Valsartan-hydrochlorothiazide 160-25 Mg Tablet (Valsartan-hydrochlorothiazide) ..... Take 1 tablet by mouth once a day Gallo Johnson MD [id number],C, T he patient is using CPAP on a regular basis. The patient has been benefiting from therapy and should continue use. Gallo Johnson MD [id number],C B P today: 116/78 P rior BP: 136/76 (01/25/2021) Labs Reviewed: C reat: 0.76 (09/11/2019) C hol: 89 (09/11/2019) HDL: 26 (09/11/2019) Her updated medication list for this problem includes: Toprol Xl 50 Mg Tablet Extended Release 24 Hr (Metoprolol succinate) ..... Take 1 tablet by mouth once a day Valsartan-hydrochlorothiazide 160-25 Mg Tablet (Valsartan-hydrochlorothiazide) ..... Take 1 tablet by mouth once a day Gallo Johnson MD [id number],C, T he following medications were removed from the medication list: Toprol Xl 50 Mg Tablet Extended Release 24 Hr (Metoprolol succinate) ..... 1 tablet once a day Her updated medication list for this problem includes: Toprol Xl 50 Mg Tablet Extended Release 24 Hr (Metoprolol succinate) ..... Take 1 tablet by mouth once a day Valsartan-hydrochlorothiazide 160-25 Mg Tablet (Valsartan-hydrochlorothiazide) ..... Take 1 tablet by mouth once a day Gallo Johnson MD [id number],C, T he patient is using CPAP on a regular basis. The patient has been benefiting from therapy and should continue use. Gallo Johnson MD [id number],C,A 1c was 8.0 H er updated medication list for this problem includes: Metformin 1,000 Mg Tablet (Metformin) ..... 1 tablet twice a day Valsartan-hydrochlorothiazide 160-25 Mg Tablet (Valsartan-hydrochlorothiazide) ..... Take 1 tablet by mouth once a day Gallo Johnson MD [id number],C, C bill cole. Start magnesium for 2 weeks. Mag oxide 400mg BID. Check levels in a few weeks. August 10, 2020 c urrently only on metoprolol xl 50 notcies imrpovemnt D ec2020 I mproved on Toprol 50mg continue current dosage. Gallo Johnson MD [id number],C, C ATH 07/27/2019 I MPRESSION: 1 . Normal coronary arteries, 2 . Normal LV function. 3 . Normal SBP. 4 . Elevated LVEDP. August 26, 2019 S xs possibly miscrovascular angina. January 25, 2021 C ath is noted above. Gallo Johnson MD [id number],C, C ATH 07/27/2019 I MPRESSION: 1 . Normal coronary arteries, 2 . Normal LV function. 3 . Normal SBP. 4 . Elevated LVEDP. August 26, 2019 S xs possibly miscrovascular angina. Gallo Johnson MD [id number],C, B P today: 121/68 P rior BP: 116/65 (08/26/2019) Labs Reviewed: C reat: 0.76 (09/11/2019) C hol: 89 (09/11/2019) HDL: 26 (09/11/2019) Her updated medication list for this problem includes: Toprol Xl 50 Mg Oral Tablet Extended Release 24 Hour (Metoprolol succinate) ..... One tab daily Aspirin 81 81 Mg Oral Tablet Delayed Release (Aspirin) ..... One tab by mouth daily Valsartan-hydrochlorothiazide 160-25 Mg Oral Tablet (Valsartan-hydrochlorothiazide) ..... Take 1 tablet by mouth every day Gallo Johnson MD [id number],C, T he patient is using CPAP on a regular basis. The patient has been benefiting from therapy and should continue use. Gallo Johnson MD [id number],C, C bill cole. Start magnesium for 2 weeks. Mag oxide 400mg BID. Check levels in a few weeks. August 10, 2020 c urrently only on metoprolol xl 50 notcies imrpovemnt Gallo Johnson MD [id number],C, H er updated medication list for this problem includes: Aspirin 81 81 Mg Oral Tablet Delayed Release (Aspirin) ..... One tab by mouth daily Valsartan-hydrochlorothiazide 160-25 Mg Oral Tablet (Valsartan-hydrochlorothiazide) ..... Take 1 tablet by mouth every day Metformin Hcl 1000 Mg Oral Tablet (Metformin hcl) ..... One tab twice daily L abs Reviewed: C reat: 0.76 (09/11/2019) Gallo Johnson MD Cardiology: T he patient is using CPAP on a regular basis. The patient has been benefiting from therapy and should continue use. Gallo Johnson MD Cardiology: C bill cole. Start magnesium for 2 weeks. Mag oxide 400mg BID. Check levels in a few weeks. August 10, 2020 c urrently only on metoprolol xl 50 notcies imrpovemnt & #13;January 25, 2021 I mproved on Toprol 50mg continue current dosage. January 31, 2022 W ill obtain telemonitor to see if she is having PVCs May 08, 2023 Gallo Johnson MD Cardiology: H er updated medication list for this problem includes: Metoprolol Succinate 50 Mg Tablet Extended Release 24 Hr (Metoprolol succinate) ..... Take 1 tablet by mouth once a day Valsartan-hydrochlorothiazide 160-25 Mg Tablet (Valsartan-hydrochlorothiazide) ..... Take 1 tablet by mouth once a day BP today: 130/80 P rior BP: 112/69 (01/31/2022) Labs Reviewed: C reat: 0.76 (09/11/2019) C hol: 89 (09/11/2019) HDL: 26 (09/11/2019) LDL: 28 (09/11/2019) T (09/11/2019) Gallo Johnson MD Cardiology: S he is on vascep. Will ontain Lipid panel with PCP Her updated medication list for this problem includes: Vascepa 1 Gram Capsule (Icosapent ethyl) ..... 1 gram by mouth twice a day Atorvastatin 40 Mg Tablet (Atorvastatin) ..... Take 1 tablet by mouth once a day Gallo Johnson MD Cardiology: Elsie cole. Start magnesium for 2 weeks. Mag oxide 400mg BID. Check levels in a few weeks. August 10, 2020 c urrently only on metoprolol xl 50 notcies imrpovemnt & #13;January 25, 2021 I mproved on Toprol 50mg continue current dosage. January 31, 2022 W ill obtain telemonitor to see if she is having PVCs Gallo Johnson MD Cardiology:She is on vascep. Yasmany junior liliana Lipid panel Gallo Johnson MD Cardiology: T he patient is using CPAP on a regular basis. The patient has been benefiting from therapy and should continue use. Gallo Johnson MD Cardiology: B P today: 112/69 P rior BP: 116/78 (07/26/2021) Labs Reviewed: C reat: 0.76 (09/11/2019) C hol: 89 (09/11/2019) HDL: 26 (09/11/2019) Her updated medication list for this problem includes: Valsartan-hydrochlorothiazide 160-25 Mg Tablet (Valsartan-hydrochlorothiazide) ..... Take 1 tablet by mouth once a day Gallo Johnson MD Cardiology: Elsie cole. Start magnesium for 2 weeks. Mag oxide 400mg BID. Check levels in a few weeks. August 10, 2020 c urrently only on metoprolol xl 50 notcies imrpovemnt January 25, 2021 I mproved on Toprol 50mg continue current dosage. Gallo Johnson MD Cardiology: C ATH 07/27/2019 I MPRESSION: 1 . Normal coronary arteries, 2 . Normal LV function. 3 . Normal SBP. 4 . Elevated LVEDP. August 26, 2019 S xs possibly miscrovascular angina. January 25, 2021 C ath is noted above. Gallo Johnson MD Cardiology: A 1c was 8.0 H er updated medication list for this problem includes: Metformin 1,000 Mg Tablet (Metformin) ..... 1 tablet twice a day Valsartan-hydrochlorothiazide 160-25 Mg Tablet (Valsartan-hydrochlorothiazide) ..... Take 1 tablet by mouth once a day Gallo Johnson MD Cardiology: T he patient is using CPAP on a regular basis. The patient has been benefiting from therapy and should continue use. Gallo Johnson MD Cardiology: B P today: 116/78 P rior BP: 136/76 (01/25/2021) Labs Reviewed: C reat: 0.76 (09/11/2019) C hol: 89 (09/11/2019) HDL: 26 (09/11/2019) Her updated medication list for this problem includes: Toprol Xl 50 Mg Tablet Extended Release 24 Hr (Metoprolol succinate) ..... Take 1 tablet by mouth once a day Valsartan-hydrochlorothiazide 160-25 Mg Tablet (Valsartan-hydrochlorothiazide) ..... Take 1 tablet by mouth once a day Gallo Johnson MD Cardiology: T he following medications were removed from the medication list: Toprol Xl 50 Mg Tablet Extended Release 24 Hr (Metoprolol succinate) ..... 1 tablet once a day Her updated medication list for this problem includes: Toprol Xl 50 Mg Tablet Extended Release 24 Hr (Metoprolol succinate) ..... Take 1 tablet by mouth once a day Valsartan-hydrochlorothiazide 160-25 Mg Tablet (Valsartan-hydrochlorothiazide) ..... Take 1 tablet by mouth once a day Gallo Johnson MD Cardiology: T he patient is using CPAP on a regular basis. The patient has been benefiting from therapy and should continue use. Gallo Johnson MD Cardiology:A1c was 8 .0 H er updated medication list for this problem includes: Metformin 1,000 Mg Tablet (Metformin) ..... 1 tablet twice a day Valsartan-hydrochlorothiazide 160-25 Mg Tablet (Valsartan-hydrochlorothiazide) ..... Take 1 tablet by mouth once a day Gallo Johnson MD Cardiology: Elsie leeter. Start magnesium for 2 weeks. Mag oxide 400mg BID. Check levels in a few weeks. August 10, 2020 c urrently only on metoprolol xl 50 notcies imrpovemnt January 25, 2021 I mproved on Toprol 50mg continue current dosage. Gallo Johnson MD Cardiology: C ATH 07/27/2019 I MPRESSION: 1 . Normal coronary arteries, 2 . Normal LV function. 3 . Normal SBP. 4 . Elevated LVEDP. August 26, 2019 S xs possibly miscrovascular angina. January 25, 2021 C ath is noted above. Gallo Johnson MD Cardiology: C ATH 07/27/2019 I MPRESSION: 1 . Normal coronary arteries, 2 . Normal LV function. 3 . Normal SBP. 4 . Elevated LVEDP. August 26, 2019 S xs possibly miscrovascular angina. Gallo Johnson MD Cardiology: B P today: 121/68 P rior BP: 116/65 (08/26/2019) Labs Reviewed: C reat: 0.76 (09/11/2019) C hol: 89 (09/11/2019) HDL: 26 (09/11/2019) Her updated medication list for this problem includes: Toprol Xl 50 Mg Oral Tablet Extended Release 24 Hour (Metoprolol succinate) ..... One tab daily Aspirin 81 81 Mg Oral Tablet Delayed Release (Aspirin) ..... One tab by mouth daily Valsartan-hydrochlorothiazide 160-25 Mg Oral Tablet (Valsartan-hydrochlorothiazide) ..... Take 1 tablet by mouth every day Gallo Johnson MD Cardiology: T he patient is using CPAP on a regular basis. The patient has been benefiting from therapy and should continue use. Gallo Johnson MD Cardiology: Elsie leeter. Start magnesium for 2 weeks. Mag oxide 400mg BID. Check levels in a few weeks. August 10, 2020 c urrently only on metoprolol xl 50 notcies imrpovemnt Gallo oJhnson MD Cardiology: H er updated medication list for this problem includes: Aspirin 81 81 Mg Oral Tablet Delayed Release (Aspirin) ..... One tab by mouth daily Valsartan-hydrochlorothiazide 160-25 Mg Oral Tablet (Valsartan-hydrochlorothiazide) ..... Take 1 tablet by mouth every day Metformin Hcl 1000 Mg Oral Tablet (Metformin hcl) ..... One tab twice daily L abs Reviewed: C reat: 0.76 (09/11/2019) Gallo Johnson MD Cardiology: H er updated medication list for this problem includes: Aspirin 81 81 Mg Oral Tablet Delayed Release (Aspirin) ..... One tab by mouth daily Valsartan-hydrochlorothiazide 160-25 Mg Oral Tablet (Valsartan-hydrochlorothiazide) ..... Take 1 tablet by mouth every day Metformin Hcl 1000 Mg Oral Tablet (Metformin hcl) ..... One tab twice daily Gallo Johnson MD Cardiology: C ATH 07/27/2019 I MPRESSION: 1 . Normal coronary arteries, 2 . Normal LV function. 3 . Normal SBP. 4 . Elevated LVEDP. August 26, 2019 S xs possibly miscrovascular angina. Gallo Johnson MD Cardiology:Check hol ter. Start magnesium for 2 weeks. Mag oxide 400mg BID. Check levels in a few weeks. Gallo Johnson MD Cardiology: B P today: 116/65 P rior BP: 133/84 (07/10/2019) Her updated medication list for this problem includes: Toprol Xl 50 Mg Oral Tablet Extended Release 24 Hour (Metoprolol succinate) ..... One tab daily Aspirin 81 81 Mg Oral Tablet Delayed Release (Aspirin) ..... One tab by mouth daily Valsartan-hydrochlorothiazide 160-25 Mg Oral Tablet (Valsartan-hydrochlorothiazide) ..... Take 1 tablet by mouth every day Gallo Johnson MD Cardiology: T he patient is using CPAP on a regular basis. The patient has been benefiting from therapy and should continue use. Gallo Johnson MD Cardiology:Needs to get echo. Sa tyree Johnson MD Cardiology:Father with CAD. Misa Johnson MD Cardiology:BHOB was elevated on eval. Was Ketotic, my be related to starvatio H er updated medication list for this problem includes: Aspirin 81 81 Mg Oral Tablet Delayed Release (Aspirin) ..... One tab by mouth daily Valsartan-hydrochlorothiazide 160-25 Mg Oral Tablet (Valsartan-hydrochlorothiazide) ..... Take 1 tablet by mouth every day Metformin Hcl 1000 Mg Oral Tablet (Metformin hcl) ..... One tab twice daily Orders: C ardiac Cath - Left - [facility] ([id number]) 9 9205 [facility] Complex ([id number]) Gallo Johnson MD Cardiology:Minimally abnormal stress test involving apical defect, EF 74%. Multiple RF's for CAD including FMHx, DM, obesity, CHOL, HTN. Reviewed with her options for CTA vs Cath, prefers to have cath for definitive Dx. The risks and benefits of the procedure, including but not limited the risk of heart attack, , stroke, bleeding, kidney failure, and loss of limb as well as the alternative of continued medical therapy, stress testing or bypass surgery were discussed with the patient and any present family members and the patient wishes to proceed with cardiac cath and stenting. The patient and family had opportunity to discuss this with us. Written material including informed consent was given out. Gallo Johnson MD Cardiology:The patie nt is using CPAP on a regular basis. The patient has been benefiting from therapy and should continue use. Gallo Johnson MD Date Name HEMOGLOBIN A1c LIPID PANEL COMPREHENSIVE METABO LIC PANEL, W/EGFR Holter Monitor 48 hr LIPID PANEL TSH, free T4, total T3 MAGNESIUM BASIC METABOLIC PANE L W/EGFR Complete Echo HISTORY OF PROCEDURES Procedure Date Procedure Name Provider Procedure Notes S tatus EKG Gallo Johnson MD compl eted EKG Gallo Johnson MD compl eted EKG Gallo Johnson MD compl eted QUIN Johnson MD compl eted QUIN Johnson MD compl eted
--- OUTSIDE RECORDS SUMMARY | 2024-03-24 14:25 | XMS_ITS | Clinical Summary ---
Author Organization [facility] Address [address] [place] [address] Care Team Providers Care Business Loan Processor Name Role Phone Patrick Romero MD Primary Care Provider Source Comments [facility],non-owned Affiliates and Associated Physician Practices is amultiple site organization consisting of ambulatory clinics and hospital sitesin [place], [place], [place] and [place]. This disclosure is being madepursuant to the Care Everywhere program and may not contain all information available regarding this patient. Last updated 17.[facility] [employer] Social History Tobacco Use Types Packs/Day Years Used Date Smoking Tobacco: Never Assessed Sex and Gender Information Value Date Recorded Sex Assigned at Not on file Gender Identity Not on file Sexual Orientation Not on file Plan of Treatment Health Maintenance Due Date Last Done Comments COLOGUARD (AGES 45-75) - COL ON CA SCREENING 1970 COLON MONITORING 1970 COLONOSCOPY - COLON CA SCREENING 1970 CT COLONOGRAPHY - COLON CA SCREENING 1970 Colorectal Cancer Screening 1970 FIT - COLON CA SCREENING 1970 FLEX SIG - COLON CA SCREENING 1970 LIPID TESTING 1970 MAMMOGRAM 1970 PAP SMEAR 1970 HIV SCREENING 1985 HEPATITIS C SCREENING 01/19/1988 DTAP/TDAP/TD VACCINES (1 - Tdap) 1989 HEPATITIS B VACCINE (1 of 3 - 19+ 3-dose series) 1989 PNEUMOCOCCAL VACCINE 50+ (1 of 1 - PCV) 01/24/2020 ZOSTER VACCINE (1 of 2) 01/24/2020 COVID-19 VACCINE (2 - 2023-2 5 season) 2023 12/29/2020 INFLUENZA VACCINE (#1) 2023 2, 12/15/2020, 11/11/2013 DEPRESSION SCREENING 02/12/2024 HIB VACCINE Aged Out No longer eligi ble based on patient's age to complete this topic HPV VACCINE Aged Out No longer eligi ble based on patient's age to complete this topic MENINGOCOCCAL (Group B) VACCINE Aged Out No longer eligible b ased on patient's age to complete this topic MENINGOCOCCAL VACCINE Aged Out No carol enmanuel eligible based on patient's age to complete this topic PNEUMOCOCCAL VACCINE Aged Out No long er eligible based on patient's age to complete this topic Care Teams Business Loan Processor Relationship Specialty Start Date End Date Patrick Romero MD [address] [id number] PCP - General 06/08/20
--- OUTSIDE RECORDS SUMMARY | 2024-03-24 14:25 | XMS_ITS | Data Portability ---
Author Organization [place] - [facility], Main Office Address [address] [place] [address] Care Team Providers Care Electronic Gaming Device Supervisor Name Role Phone CAMERON ROMERO Primary Care Provider [facility] Endocrino logist MELL FUENTES Foundation Maker Assessment Encounter Date Assessment Date Assessment LastModified by Organization Details LastModified Time 08/21/2022 08/21/2022 This note is dictated and transcribed by [employer] Fluency Direct Software. Office Mail Clerk variances may occur. Despite proofreading, typographical errors may occur. [email or web address] Not available 08/21/2022 17:01:19 11/20/2022 11/20/2022 10/10/2021: A1C 8.7 TSH/FT4: WNL Vit D 40.4 CBC: WNL CMP: Gluc 210, T bili 1.40H Chol 129, TG 271, HDL 39, LDL 36 Urine micro alb 48.2H 07/17/2022: A1C 9.4 Gluc 207 TG 244 HCT 46.9 11/20/2022: A1C 9.9 Urine micro alb 24.7 Gluc 242, ALT/AST 42/48 TG 309 Not available 11/20/2022 16:28:22 03/07/2023 03/07/2023 10/10/2021: A1C 8.7 TSH/FT4: WNL Vit D 40.4 CBC: WNL CMP: Gluc 210, T bili 1.40H Chol 129, TG 271, HDL 39, LDL 36 Urine micro alb 48.2H 07/17/2022: A1C 9.4 Gluc 207 TG 244 HCT 46.9 11/20/2022: A1C 9.9 Urine micro alb 24.7 Gluc 242, ALT/AST 42/48 TG 309 Not available 03/07/2023 17:51:37 Plan of Treatment Reminders Order Date Submit Date Provider Last Modified By Organization Details Last Modified Time Details Appointments None recorded. Lab lipid panel, serum 2022 023 [facility] (Lab), [address] [place], [address], 3 08:33:16 CMP, serum or plasma 2022 023 [facility] (Lab), [address] [place], [address], 3 08:33:17 CBC w/ auto diff 2022 023 [facility] (Lab), [address] [place], [address], 3 08:33:16 TSH, serum or plasma 2022 023 [facility] (Lab), [address] [place], [address], 3 08:33:18 vitamin D, 25-hydroxy, total, serum [email or web address] [facility] (Lab), [address] [place], [address], 3 13:55:17 glycohemogl obin, total, blood 2022 023 [facility] (Lab), [address] [place], [address], 3 08:33:18 microalbumi n, urine 2022 023 [facility] (Lab), [address] [place], [address], 3 08:33:17 lipid panel, serum [address] (Lab), [address] [place], [address], 4 08:45:03 CMP, serum or plasma [address] (Lab), [address] [place], [address], 4 08:45:03 CBC w/ auto diff [address] (Lab), [address] [place], [address], 4 09:01:50 TSH, serum or plasma [address] (Lab), [address] [place], [address], 4 09:07:11 vitamin D, 25-hydroxy, total, serum [email or web address] [facility] (Lab), [address] [place], [address], 4 16:55:35 glycohemogl obin, total, blood [address] (Lab), [address] [place], [address], 4 09:38:39 microalbumi n, urine [address] (Lab), [address] [place], [address], 4 09:01:51 Referral nephrologis t referral 2022 023 [email or web address] Delano Renee MD, [address] [facility], [place], [address], 4 08:12:33 cardiologis t referral 2022 023 [email or web address] Gallo Johnson MD, [address] [facility], [place], [address], 4 09:00:17 diabetic ophthalmolo gy referral 2022 023 [email or web address] Aundrea Hodges MD, [address], [place], [address], 4 08:12:31 pigment weigher referral 2022 023 [email or web address] Serafin Hamilton DPM, [address] [facility], [address], [place], [address], 4 11:33:33 gastroenter ologist referral 2022 023 [email or web address] 6 Gladis Nguyễn MD, [address] [facility], [address], [place], [address], 4 08:12:32 nephrologis t referral 2023 024 [email or web address] 6 Mingo Díaz MD (Nephrology, [address] [facility], [address], [place], [address], 4 09:32:27 cardiologis t referral 2023 024 [email or web address] 6 Gallo Johnson MD, [address] [facility], [address], [place], [address], 4 09:32:26 diabetic ophthalmolo gy referral 2023 024 [email or web address] Aundrea Hodges MD, [address], [place], [address], 4 09:32:25 pigment weigher referral 2023 024 [email or web address] 6 Serafin Hamilton DPM, [address] [facility], [address], [place], [address], 4 10:27:44 endocrinolo gy referral 2023 024 [email or web address] 6 Mariano Nix MD, [address], [place], [address], 4 08:34:49 gastroenter ologist referral 2023 024 [email or web address] 6 Gladis Nguyễn MD, [address] [facility], [address], [place], [address], 4 09:32:27 Procedures None recorded. Surgeries None recorded. Imaging DEXA, axial skeleton 2022 023 [email or web address] [facility] ([facility]), [address] [place], [address], 4 08:47:13 bone density 2022 024 [email or web address] 6 [facility] ([facility]), [address] [place], [address], 5 08:32:52 MAMMO, screening, digital, bilateral [email or web address] [facility] (Imaging), [address] [place], [address], 4 17:21:53 US, liver 2022 023 [email or web address] [facility] ([facility]), [address] [place], [address], 3 10:05:48 DEXA, axial skeleton 2023 024 [email or web address] 6 [facility] ([facility]), [address] [place], [address], 4 09:32:01 bone density 2023 024 [email or web address] 6 [facility] ([facility]), [address] [place], [address], 4 09:32:01 MAMMO, screening, digital, bilateral [email or web address] [facility] (Imaging), [address] [place], [address], 4 08:20:03 US, liver 2023 024 [email or web address] [facility] ([facility]), [address] [place], [address], 4 11:20:12 Medication Orders Ozempic 0.25 mg or 0.5 mg (2 mg/3 mL) subcutaneou s pen injector 2022 023 [facility], [address] [place] [address], [address], 3 11:08:31 balsalazide 750 mg capsule 2022 023 [facility] [address], [address] [place] [address], [address], 3 16:05:11 Kerendia 10 mg tablet [email or web address] [facility], [address] [place] [address], [address], 3 09:58:10 metformin ER 500 mg tablet,exte nded release 24 hr 2022 023 [email or web address] [facility], [address] [place] [address], [address], 3 15:56:43 levothyroxi ne 137 mcg tablet 2022 023 [facility], [address] [place] [address], [address], 3 16:49:09 metformin ER 500 mg tablet,exte nded release 24 hr 2023 024 [facility] [address], [address] [place] [address], [address], 4 17:58:49 levothyroxi ne 137 mcg tablet 2023 024 [facility], [address] [place] [address], [address], 4 17:58:50 Patient TargetsNo targets recorded. Patient Instructions Encounter Date Encounter Id Patient Instructions Last Modified By Organization Details Last Modified Time 09/26/2022 [id number] PT WITH HX/O IBD-UC. DOING WELL WITH BALSALAZIDE 750 MG , 3 TABS DAILY . CONTINUE SAME . F/U IN 6 MTHS . [email or web address] Not available 09/26/2022 16:06:06 11/20/2022 [id number] dual-energy x-ra y absorptiometry (dxa) test: about this test [email or web address] Not available 11/20/2022 16:47:01 Reason for Referral Diabetic Ophthalmology Refer ral for Type 2 diabetes mellitus without complication Referring Physician: Cameron Romero, Internal Medicine, Encounter Date: 11/20/2022 Physician Practice Coordinator Referral for Type 2 diabetes mellitus without complication Referring Physician: Cameron Romero, Internal Medicine, Encounter Date: 11/20/2022 Citrix Lead Referral for Es sential hypertension Referring Physician: Cameron Romero, Internal Medicine, Encounter Date: 11/20/2022 Foundation Maker Referral for Liver enzymes level above reference range Referring Physician: Kassi Walter Medicine, Encounter Date: 11/20/2022 Hospice Spiritual Care Coordinator Referral for Pr oteinuria Referring Physician: Kassi Walter Medicine, Encounter Date: 11/20/2022 Diabetic Ophthalmology Refer ral for Type 2 diabetes mellitus without complication Referring Physician: Cameron Romero Internal Medicine, Encounter Date: 03/07/2023 Physician Practice Coordinator Referral for Type 2 diabetes mellitus without complication Referring Physician: Cameron Romero Internal Medicine, Encounter Date: 03/07/2023 Citrix Lead Referral for Es sential hypertension Referring Physician: Kassi Walter Medicine, Encounter Date: 03/07/2023 Foundation Maker Referral for Liver enzymes level above reference range Referring Physician: Cameron Romero Internal Medicine, Encounter Date: 03/07/2023 Hospice Spiritual Care Coordinator Referral for Pr oteinuria Referring Physician: Kassi Walter Medicine, Encounter Date: 03/07/2023 Endocrinology Referral for T ype 2 diabetes mellitus without complication Referring Physician: Kassi Walter Medicine, Encounter Date: 03/07/2023 Results Created Date Observation Date Name Description Value Unit Range Abnormal Flag Note LastModifiedBy Organization Detail LastModifiedTime 11/21/1911/20/2022 CBC/C OMPLE TE BLD COUNT W/DIF F white blood cells 8.0 x10'3 /uL 4.2-[address] [facility] (Lab) [address] [place], [address], 11/20/2022 10:36:29 11/21/1911/20/2022 CBC/C OMPLE TE BLD COUNT W/DIF F red blood cells 5.10 x10'6 /uL 3.80-[address] [facility] (Lab) [address] [place], [address], 11/20/2022 10:36:29 11/21/19 23 11/20/2022 CBC/C OMPLE TE BLD COUNT W/DIF F hemoglobin 14.2 g/dL 12.0-1 5.6 Not Available [facility] (Lab) [address] [facility] [place], [address], 11/20/2022 10:36:29 11/21/19 23 11/20/2022 CBC/C OMPLE TE BLD COUNT W/DIF F hematocrit 44.4 % 35.7-[address] [facility] (Lab) [address] [place], [address], 11/20/2022 10:36:29 11/21/19 23 11/20/2022 CBC/C OMPLE TE BLD COUNT W/DIF F mean red cell volume 87.1 fL 82.0-[address] [facility] (Lab) [address] [place], [address], 11/20/2022 10:36:29 11/21/19 23 11/20/2022 CBC/C OMPLE TE BLD COUNT W/DIF F mean red cell hemoglobin 27.8 pg 27.0-[address] [facility] (Lab) [address] [place], [address], 11/20/2022 10:36:29 11/21/19 23 11/20/2022 CBC/C OMPLE TE BLD COUNT W/DIF F mean RBC HGB concentratio n 32.0 g/dL 31.0-[address] [facility] (Lab) [address] [place], [address], 11/20/2022 10:36:29 11/21/19 23 11/20/2022 CBC/C OMPLE TE BLD COUNT W/DIF F red cell distribution width 14.2 % 11.8-[address] [facility] (Lab) [address] [place], [address], 11/20/2022 10:36:29 11/21/19 23 11/20/2022 CBC/C OMPLE TE BLD COUNT W/DIF F platelets 269 x10'3 /uL 150-[address] [facility] (Lab) [address] [place], [address], 11/20/2022 10:36:29 11/21/1911/20/2022 CBC/C OMPLE TE BLD COUNT W/DIF F mean platelet volume 11.6 fL 9.0-[address] [facility] (Lab) [address] [place], [address], 11/20/2022 10:36:29 11/21/1911/20/2022 CBC/C OMPLE TE BLD COUNT W/DIF F neutrophils 65.0 % 39.0-[address] [facility] (Lab) [address] [place], [address], 11/20/2022 10:36:29 11/21/19 23 11/20/2022 CBC/C OMPLE TE BLD COUNT W/DIF F lymphocytes 24.7 % 16.0-[address] [facility] (Lab) [address] [place], [address], 11/20/2022 10:36:29 11/21/19 23 11/20/2022 CBC/C OMPLE TE BLD COUNT W/DIF F monocytes 5.8 % 5.0-[address] [facility] (Lab) [address] [place], [address], 11/20/2022 10:36:29 11/21/19 23 11/20/2022 CBC/C OMPLE TE BLD COUNT W/DIF F eosinophils 2.3 % 1.0-7. [address] [facility] (Lab) [address] [place], [address], 11/20/2022 10:36:29 11/21/19 23 11/20/2022 CBC/C OMPLE TE BLD COUNT W/DIF F basophils 0.9 % 0.0-2. [address] [facility] (Lab) [address] [place], [address], 11/20/2022 10:36:29 11/21/1911/20/2022 CBC/C OMPLE TE BLD COUNT W/DIF F immature granulocytes 1.3 % 0.00-0 [address] [facility] (Lab) [address] [place], [address], 11/20/2022 10:36:29 11/21/1911/20/2022 CBC/C OMPLE TE BLD COUNT W/DIF F neutrophils, absolute count 5.21 x10'3 /uL 1.5-8. [address] [facility] (Lab) [address] [place], [address], 11/20/2022 10:36:29 11/21/19 23 11/20/2022 CBC/C OMPLE TE BLD COUNT W/DIF F lymphocytes, absolute count 1.97 x10'3 /uL 1.07-[address] [facility] (Lab) [address] [place], [address], 11/20/2022 10:36:29 11/21/19 23 11/20/2022 CBC/C OMPLE TE BLD COUNT W/DIF F monocytes, absolute count 0.46 x10'3 /uL 0.29-[address] [facility] (Lab) [address] [place], [address], 11/20/2022 10:36:29 11/21/19 23 11/20/2022 CBC/C OMPLE TE BLD COUNT W/DIF F eosinophils, absolute count 0.18 x10'3 /uL 0.02-[address] [facility] (Lab) [address] [place], [address], 11/20/2022 10:36:29 11/21/19 23 11/20/2022 CBC/C OMPLE TE BLD COUNT W/DIF F basophils, absolute count 0.07 x10'3 /uL 0.01-[address] [facility] (Lab) [address] [place], [address], 11/20/2022 10:36:29 11/21/19 23 11/20/2022 CBC/C OMPLE TE BLD COUNT W/DIF F immature granulocytes ,absolute 0.10 x10'3 /uL 0.00-0 [address] [facility] (Lab) [address] [place], [address], 11/20/2022 10:36:29 11/21/19 23 11/20/2022 CBC/C OMPLE TE BLD COUNT W/DIF F nucleated red blood cells 0.0 % -0 Not Available [facility] (Lab) [address] [place], [address], 11/20/2022 10:36:29 11/21/1911/20/2022 CBC/C OMPLE TE BLD COUNT W/DIF F NRBC# 0.00 x10'3 /uL Not Available [facility] (Lab) [address] [place], [address], 11/20/2022 10:36:29 11/21/1911/20/2022 LIPID PANEL cholesterol 149 mg/dL 140-19 9 NIH SO NSUS RECOM MENDA TION FOR RO STERO L: ADULT CHILD LOW RISK: <200 <170 BORDE RLINE : <200- 239 ----- HIGH RISK: >240 >200 Not Available [facility] (Lab) [address] [place], [address], 11/20/2022 10:49:49 11/21/1911/20/2022 LIPID PANEL triglyceride s 309 mg/dL 0-150 high NIH SO NSUS REPOR T RECOM MENDA TION FOR TRIGL YCERI ADA: ADULT CHILD LOW RISK: <150 ----- BODER LINE: 150-1 99 ----- HIGH RISK: >200 ----- Not [address] [facility] (Lab) [address] [place], [address], 11/20/2022 10:49:49 11/21/1911/20/2022 LIPID PANEL HDL cholesterol 42 mg/dL 40- Not Available [facility] (Lab) [address] [place], [address], 11/20/2022 10:49:49 11/21/1911/20/2022 LIPID PANEL LDL cholesterol, calculated 45 mg/dL 0-130 NIH SO NSUS REPOR T RECOM MENDA TIONS FOR LDL: ADULT CHILD LOW RISK <130 <110 (OPTI MAL LDL) <100 ----- BORDE RLINE : 130-1 59 ----- HIGH RISK: >160 >130 A TRIGL YCERI DE RESUL T >400 INVAL IDATE S THE CALCU LATIO N FOR LDL FRACT IONAT ION - THE LDL RESUL T WILL NOT BE REPOR WILLIAM. Not Available [facility] (Lab) [address] [place], [address], 11/20/2022 10:49:49 11/21/1911/20/2022 COMPR EHENS OLEGARIO METAB OLIC PANEL sodium 137 mmol/ L 137-[address] [facility] (Lab) [address] [place], [address], 11/20/2022 10:50:00 11/21/1911/20/2022 COMPR EHENS OLEGARIO METAB OLIC PANEL potassium 4.5 mmol/ L 3.5-5. [address] [facility] (Lab) [address] [place], [address], 11/20/2022 10:50:00 11/21/1911/20/2022 COMPR EHENS OLEGARIO METAB OLIC PANEL chloride 98 mmol/ L 98-[address] [facility] (Lab) [address] [place], [address], 11/20/2022 10:50:00 11/21/1911/20/2022 COMPR EHENS OLEGARIO METAB OLIC PANEL carbon dioxide 29 mmol/ L 22-[address] [facility] (Lab) [address] [place], [address], 11/20/2022 10:50:00 11/21/1911/20/2022 COMPR EHENS OLEGARIO METAB OLIC PANEL anion gap 14.5 mmol/ L 14-22 Not Available [facility] (Lab) [address] [place], [address], 11/20/2022 10:50:00 11/21/1911/20/2022 COMPR EHENS OLEGARIO METAB OLIC PANEL glucose 242 mg/dL 70-[address] [facility] (Lab) [address] [place], [address], 11/20/2022 10:50:00 11/21/1911/20/2022 COMPR EHENS OLEGARIO METAB OLIC PANEL BUN 14 mg/dL 8-[address] [facility] (Lab) [address] [place], [address], 11/20/2022 10:50:00 11/21/19 23 11/20/2022 COMPR EHENS OLEGARIO METAB OLIC PANEL creatinine 0.51 mg/dL 0.66-1 [address] [facility] (Lab) [address] [place], [address], 11/20/2022 10:50:00 11/21/1911/20/2022 COMPR EHENS OLEGARIO METAB OLIC PANEL GFR >60 Refer ence Range : [place] GFR Healt hy Adult : >60 mL/mi n/1.7 3 m2 Chron ic Kidne y Disea se: 15-60 mL/mi n/1.7 3 m2 Kidne y Failu re: <15/m L/min /1.73 m2 www.n iddk. nih.g ov The MDRD study equat ion has not been valid ated in child mikel <18 years of age; pregn ant women ; the elder ly >85 years of age; or in some racia l or ethni c subgr oups, such as Hispa nics. Outsi de the valid ated stephani eters , estim ated GFR is less accur ate, requi ring clini inez judgm ent on a case- by-ca se basis . Clini inez inter preta tion for other races and ages must be made by the clini jay. The MDRD study equat ion has not been valid ated for the evalu ation of serum creat inine relat ed to nutri charley l statu s or medic ation usage . For perso ns <18 years of age, a pedia tric GFR calcu lator is avail able on the [facility] websi te: https ://christian mcdonnell.chip rico.o haider/pr ofess ional s/kdo qi/gf r_cal culat or Not Available [facility] (Lab) [address] [place], [address], 11/20/2022 10:50:00 11/21/1911/20/2022 COMPR EHENS OLEGARIO METAB OLIC PANEL alkaline phosphatase 76 U/L 38-126 Not Available [facility] (Lab) [address] [place], [address], 11/20/2022 10:50:00 11/21/19 23 11/20/2022 COMPR EHENS OLEGARIO METAB OLIC PANEL alanine aminotransfe rase 42 U/L 0-35 high Not Available [facility] (Lab) [address] [place], [address], 11/20/2022 10:50:00 11/21/1911/20/2022 COMPR EHENS OLEGARIO METAB OLIC PANEL aspartate aminotransfe rase 48 U/L 15-37 high Not Available [facility] (Lab) [address] [place], [address], 11/20/2022 10:50:00 11/21/1911/20/2022 COMPR EHENS OLEGARIO METAB OLIC PANEL bilirubin, total 1.20 mg/dL 0.20-[address] [facility] (Lab) [address] [place], [address], 11/20/2022 10:50:00 11/21/1911/20/2022 COMPR EHENS OLEGARIO METAB OLIC PANEL calcium 9.7 mg/dL 8.4-[address] [facility] (Lab) [address] [place], [address], 11/20/2022 10:50:00 11/21/1911/20/2022 COMPR EHENS OLEGARIO METAB OLIC PANEL total protein 7.0 g/dL 6.3-8. [address] [facility] (Lab) [address] [place], [address], 11/20/2022 10:50:00 11/21/1911/20/2022 COMPR EHENS OLEGARIO METAB OLIC PANEL albumin 4.3 g/dL 3.4-5. [address] [facility] (Lab) [address] [place], [address], 11/20/2022 10:50:00 11/21/1911/20/2022 COMPR EHENS OLEGARIO METAB OLIC PANEL globulin 2.7 g/dL 2.6-4. [address] [facility] (Lab) [address] [place], [address], 11/20/2022 10:50:00 11/21/19 23 11/20/2022 COMPR EHENS OLEGARIO METAB OLIC PANEL A/G ratio 1.6 ratio 1.0-2. [address] [facility] (Lab) [address] [place], [address], 11/20/2022 10:50:00 11/21/19 23 11/20/2022 MICRO ALBUM IN RANDO M URINE microalbumin , urine 24.7 mg/L 0.0-16 [address] [facility] (Lab) [address] [place], [address], 11/20/2022 11:04:24 11/21/1911/20/2022 VITAM IN D 25-HY DROXY vd25oh 41.4 NG/mL 30-100 Vitam in D Statu s: Defic ient: <20 ng/mL Insuf ficie nt: 20-29 ng/mL Suffi cient : 30-10 0 ng/mL Not Available [facility] (Lab) [address] [place], [address], 11/20/2022 11:11:48 11/21/1911/20/2022 TSH W/REF LO FT4 TSH with reflex free T4 3.740 uIU/m L 0.465- 4.[address] [facility] (Lab) [address] [place], [address], 11/20/2022 11:16:36 11/21/1911/20/2022 HEMOG LOBIN A1C HA1C 9.9 % 4.0-6. 0 high Diabe austen Scree raghu Crite haleigh: <5.7% Consi stent with absen ce of diabe austen 5.7-6 .4% Consi stent with incre ased risk for diabe austen (pred iabet es) >OR=6 .5% Consi stent with diabe austen REFER ENCE: Diabe austen Care 2016, 39(Robert ppl.1 ):s13 -s22 [address] [facility] (Lab) [address], [place], [address], 11/20/2022 14:01:43 08/22/19 23 05/15/2021 colon oscop y proce dure (PROC ) No observ ation record ed. BARCODE Not Available 2022 15:44:36 12/05/19 23 12/04/2022 US, abdom en, limit ed [facility] [address] [facility] [address], [place] [address] Patien t Name: PINO CARRAJ Access ion #: [id number] Sex: F : 1969 4 Dictat ed By: Akshat Turcios Attend ing Physic panda: , Chantell glass Physic panda: NHAN TREJO Exam Date: 2022 07:27 AM Exam Name: US ABDOME N SINGLE ORGAN Admitt ing Diagno sis(es ): EXAMIN ATION: Ultras ound of the Liver and Adjace nt Struct ures CLINIC AL INFORM ATION: Histor y of elevat ed liver functi on tests. TECHNI QUE: Real-t bobbi graysc karyna sonogr aphy of the specif ied abdomi nal organs was perfor med using curvil inear transd ucers. Dopple r evalua tion was perfor med where indica william. FINDIN GS: Liver: Size: Enlarg ed, measur ing 21.14 cm in length . Echote xture: Increa sed echoge nicity , sugges tive of hepati c steato sis. Vascul ar Flow: Hepato petal flow observ ed. Intrah epatic Ducts: Not dilate d. No lesion s identi fied. Gallbl adder: Morpho logy: Wall thicke raghu noted, measur ing 4.34mm . Conten ts: Multip le gallst ones presen t, with the larges t stone measur ing 2.48 cm in diamet er. Sonogr aphic Grajeda Sign: Negati ve. Common Bile Duct (CBD): Diamet er: 2.23 mm, within normal limits . Pancre as: Head, Body, Tail: Normal appear ance. No lesion s identi fied. Kidney s: Right Kidney : Normal size, measur ing 12.52 x 5.45 x 6.60 cm, with unrema rkable echote xture. No eviden ce of hydron ephros is or stones . Aorta and Inferi or Vena Cava (IVC): Both aorta and IVC were not visual ized during this examin ation. IMPRES NUHA: Hepato megaly with increa sed hepati c echoge nicity , sugges tive of hepati c Page 1 [facility] [address] [place] [address] Patien t Name: JUANPABLOAJ ZAYAS Access ion #: [id number] Sex: F : 1969 4 Dictat ed By: Akshat Turcios Attend ing Physic panda: Chantell Physic panda: NHAN TREJO Exam Date: 2022 07:27 AM Exam Name: US ABDOME N SINGLE ORGAN Admitt ing Diagno sis(es ): steato sis or fatty liver. Gallst ones are presen t in the gallbl adder with the larges t stone measur ing 2.48 cm. Thicke prema gallbl adder wall, sugges ting the possib ility of cholec ystiti s. Negati ve sonogr aphic Grajeda sign. The common bile duct appear s normal in diamet er. The right kidney is normal in size and echote xture. Aorta and IVC were not evalua william in this study. Electr onical ly Signed by: Akshat Turcios at 2022 08:57: 56 AM Signat ure Date/T bobbi: 2022 8:57 AM Page [email or web address] [facility] (Imaging) [address] [place], [address], 03/18/2023 11:30:08 12/05/19 23 12/04/2022 US, liver No observ ation record ed. [email or web address] [facility] [address] [place], [address], 03/18/2023 11:30:09 Result Notes None recorded. Problems Name Problem SNOMED Code Status Onset Date Resolution Date Notes Provider Name and Address Organization Details Recorded Time Mixed hyperlipid emia 575636678 Active 2022 Not Available [facility] 4 11:50:43 Proteinuri a 73649236 Active 2022 Not Available [facility] 4 11:50:43 Acute urinary tract infection 532357082 Active 2022 Not Available [facility] 4 11:50:44 Generalize d anxiety disorder 71330188 Active 2022 Not Available [facility] 4 11:50:43 Essential hypertensi on 08821347 Active 2022 Not Available [facility] 4 11:50:44 Hernia of anterior abdominal wall 368472713 Active 2022 Not Available [facility] 4 11:50:44 Gastroesop hageal reflux disease without esophagiti s 256230011 Active 2022 Not Available [facility] 4 11:50:43 Morbid obesity 246430332 Active 2022 Not Available [facility] 4 11:50:43 Skin ulcer of toe due to diabetes mellitus type 2 2741598301622 9102 Active 2022 Not Available [facility] 4 11:50:43 Upper respirator y infection 22754476 Active 2023 FERNANDEZ Vargas, [place] - [facility] 4 16:07:26 Cellulitis of toe of left foot 2312210154937 9105 Active 2021 Not Available [facility] 4 11:50:43 Cellulitis of toe of right foot 0741163273383 9106 Active 2021 Not Available [facility] 4 11:50:43 Dysfunctio n of posterior tibial tendon 9277946235333 05 Active 2017 Not Available [facility] 4 11:50:43 Leukocytos is 060350086 Active 2022 Not Available [facility] 4 11:50:43 Benign essential hypertensi on 1409373 Active Not Available [facility] 4 11:50:43 Open wound of ankle 689705755 Active 2021 Not Available [facility] 4 11:50:43 Open wound of ankle 074928523 Active 2021 Not Available [facility] 4 11:50:43 Knee joint effusion 600933921 Active Not Available [facility] 4 11:50:43 Tibialis posterior tendinitis 969747737 Active 2017 Not Available [facility] 4 11:50:43 Plantar fasciitis 503763303 Active Not Available [facility] 4 11:50:43 Neuropathy due to diabetes mellitus 946417012 Active 2017 Not Available [facility] 4 11:50:43 Congenital pes planus 98974753 Active 2017 Not Available [facility] 4 11:50:43 Ulcer of toe 101387136 Active 2019 Not Available [facility] 4 11:50:43 Ulcer of heel 203356265 Active 2021 Not Available [facility] 4 11:50:43 Ulcer of heel 072824335 Active 2021 Not Available [facility] 4 11:50:43 Pain of ear 418458935 Active 2021 Not Available [facility] 4 11:50:43 Ulcer of big toe 651424891 Active 2021 Not Available [facility] 4 11:50:43 Knee pain Active Not Available [facility] 4 11:50:43 Type 2 diabetes mellitus without complicati on 002112792 Active Not Available [facility] 4 11:50:43 Pain in left foot 1498534526003 07 Active 2021 Not Available [facility] 4 11:50:43 Pain of toe of right foot 7778522870319 01 Active 2021 Not Available [facility] 4 11:50:43 Vitamin D deficiency 60015770 Active Not Available [facility] 4 11:50:43 Hyperurice luan 23268850 Active 2018 Not Available [facility] 4 11:50:43 Sinusitis 84593846 Active Not Available [facility] 4 11:50:43 Dyslipidem ia 274334178 Active 2021 Not Available [facility] 4 11:50:44 Arthritis 8843103 Active 2017 Not Available [facility] 4 11:50:44 Hypertensi ve disorder 61761452 Active 2017 Not Available [facility] 4 11:50:44 Neuropathy 362250404 Active 2021 Not Available [facility] 4 11:50:44 Paronychia of toe 119330505 Active 2018 Not Available [facility] 4 11:50:44 Osteoarthr itis 332473246 Active Not Available [facility] 4 11:50:44 Dizziness 383998300 Active Not Available [facility] 4 11:50:44 Hypothyroi dism 60827512 Active Not Available [facility] 4 11:50:44 Obesity 802155436 Active Not Available [facility] 4 11:50:44 Diabetic peripheral neuropathy 318177787 Active 2021 Not Available [facility] 4 11:50:44 Uncontroll ed type 2 diabetes mellitus 979332560 Active 2021 Not Available [facility] 4 11:50:44 Foot pain 09206868 Active 2018 Not Available [facility] 4 11:50:44 Cough 28084283 Active 2021 Not Available [facility] 4 11:50:44 Hyperlipid emia 55998178 Active Not Available [facility] 4 11:50:44 Vitamin B12 deficiency (non anemic) 85136129 Active 2021 Not Available [facility] 4 11:50:44 Hypertensi ve heart disease 99344124 Active Not Available [facility] 4 11:50:44 Ulcerative colitis 52151743 Active 2018 Not Available [facility] 4 11:50:44 Hypercalce luan 84247122 Active Not Available [facility] 4 11:50:44 Increased liver function 60769033 Active Not Available [facility] 4 11:50:44 Eustachian tube disorder 57948115 Active Not Available [facility] 4 11:50:44 Liver enzymes level above reference range 571313374 Active 2022 Not Available [facility] 4 11:50:44 Diabetes mellitus 31570602 Active 2017 Not Available [facility] 4 11:50:44 Obstructiv e sleep apnea syndrome 53255160 Active Not Available [facility] 4 11:50:44 Weight gain 5681092 Active 2021 Not Available [facility] 4 11:50:44 Gout 24438333 Active 2017 Not Available [facility] 4 11:50:44 Notes:ear problems, thyroid disease, balance problems, swollen or painful joints, wear glasses, difficulty hearing, ringing in ears Some problems listed in Document: #[id number] could not be added to this patient's chart. Please review this document and add these problems to the patient's chart manually as needed. Problem Notes Documentation Provider Name and Address Organization Details Recorded Time Endocrinology Consult Note : S_[facility] [address], [facility] [id number] BERNARD (id #[id number], : 1970) Documents sent via fax will include the following message: This fax may contain sensitive and confidential personal health information that is being sent for the sole use of the intended recipient. Unintended recipients are directed to securely destroy any materials received. You are hereby notified that the unauthorized disclosure or other unlawful use of this fax or any personal health information is prohibited. To the extent patient information contained in this fax is subject to 42 CFR Part 2, this regulation prohibits unauthorized disclosure of these records. If you received this fax in error, please visit [email or web address] to notify the sender and confirm that the information will be destroyed. If you do not have internet access, please call to notify the sender and confirm that the information will be destroyed. Thank you for your attention and cooperation. [ID:[id number]][facility] [address] [place] [address] , Date: 09/25/2022RE: Amairani Hilton, : 1970, PT ID #[id number] Romero MD, I would like to thank you for referring Amairani Yobani to our practice for consultation and evaluation of FU ON LABS , on 09/25/2022. I have enclosed a copy of the office evaluation for your records. Once again, thank you for allowing me to participate in the care of this patient. Sincerely, Electronically Signed by: ELIO GIBSON MD Encounter Reason/Date FU ON LABS 09/25/2022 - 09:00AM - [facility] Laverne Peterson Problems:Reviewed Problems Hypothyroidism Diabetes mellitus - Onset: 10/28/2017 Type 2 diabetes mellitus without complication Type II diabetes mellitus uncontrolled - Onset: 11/23/2021 Diabetic peripheral neuropathy - Onset: 08/17/2021 Vitamin B12 deficiency (non anemic) - Onset: 11/23/2021 Vitamin D deficiency Mixed hyperlipidemia - Onset: 05/24/2022 Dyslipidemia - Onset: 11/23/2021 Hyperlipidemia Gout - Onset: 07/31/2017 Hypercalcemia Obesity Morbid obesity - Onset: 07/16/2022 Leukocytosis - Onset: 03/22/2022 Generalized anxiety disorder - Onset: 07/16/2022 Obstructive sleep apnea syndrome Neuropathy - Onset: 09/11/2021 Neuropathy due to diabetes mellitus - Onset: 10/28/2017 Eustachian tube disorder Pain of ear - Onset: 04/20/2021 Essential hypertension - Onset: 07/16/2022 Benign essential hypertension Hypertensive disorder - Onset: 10/28/2017 Hypertensive heart disease Sinusitis Gastroesophageal reflux disease without esophagitis - Onset: 07/16/2022 Hernia of anterior abdominal wall - Onset: 07/16/2022 Ulcerative colitis - Onset: 08/07/2018 Acute urinary tract infection - Onset: 06/01/2022 Paronychia of toe - Onset: 06/18/2018 Ulcer of heel - Onset: 03/09/2021 Ulcer of heel - Onset: 03/09/2021, Left Ulcer of toe - Onset: 11/05/2019 Ulcer of big toe - Onset: 08/17/2021 Osteoarthritis Arthritis - Onset: 10/28/2017 Knee joint effusion Tibialis posterior tendinitis - Onset: 10/28/2017 Plantar fasciitis Foot pain - Onset: 03/18/2018, Bilateral Congenital pes planus - Onset: 10/28/2017, Bilateral Dizziness Cough - Onset: 04/26/2021 Hyperuricemia - Onset: 10/28/2018 Proteinuria - Onset: 05/24/2022 Increased liver function Open wound of ankle - Onset: 03/09/2021 Open wound of ankle - Onset: 03/09/2021, Left Cellulitis of toe of left foot - Onset: 08/01/2021 Cellulitis of toe of right foot - Onset: 08/01/2021 Dysfunction of posterior tibial tendon - Onset: 10/28/2017 Knee pain Pain in left foot - Onset: 03/09/2021 Pain of toe of right foot - Onset: 08/01/2021 Liver enzymes level above reference range - Onset: 03/22/2022 Weight gain - Onset: 11/23/2021 Skin ulcer of toe due to diabetes mellitus type 2 - Onset: 07/27/2022 ear problems, thyroid disease, balance problems, swollen or painful joints, wear glasses, difficulty hearing, ringing in ears Allergies: Reviewed Allergies IODINATED CONTRAST MEDIA Medications: Reviewed Medications NameDate Source Acidophilus1 time a day, start started MIGRATION.[id number] allopurinoL 100 mg tabletTAKE 1 TABLET BY MOUTH EVERY DAY09/06/22 filled surescripts aspirin 81 mg tablet,delayed releaseTake 1 tablet every day by oral route., start started MIGRATION.[id number] atorvastatin 40 mg tabletTAKE 1 TABLET BY MOUTH EVERY DAY06/15/22 filled surescripts balsalazide 750 mg capsuleTAKE 3 CAPSULES BY MOUTH DAILY09/21/22 prescribed Cameron Romero MD BD Insulin Syringe Ultra-Fine 1 mL 31 gauge x 06/26 USE INJECT B12 ONCE [id number]/23/22 filled surescripts busPIRone 10 mg tabletTAKE 1 TABLET BY MOUTH TWICE A DAY *NOTIFY MD OF ANY CHANGE IN MOOD/BEHAVIOR*08/07/22 filled surescripts ergocalciferol (vitamin D2) 1,250 mcg (50,000 unit) capsuleTAKE 1 CAPSULE BY MOUTH ONCE [id number]/07/23 renewed Cameron Romero MD Farxiga 5 mg tabletTAKE 1 TABLET BY MOUTH EVERY DAY06/10/22 filled surescripts fenofibrate 54 mg tabletTake 1 tablet(s) every day by oral route for 90 days.11/23/21 filled MIGRATION.[id number] fluticasone propionate 50 mcg/actuation nasal spray,suspensionSHAKE LIQUID AND USE 2 SPRAYS IN EACH NOSTRIL DAILY10/27/20 filled MIGRATION.[id number] gabapentin 300 mg capsuleTAKE 1 CAPSULE BY MOUTH TWICE A DAY09/04/22 filled surescripts glimepiride 2 mg tabletTAKE 2 TABLETS BY MOUTH TWICE A DAY BEFORE MEALS07/01/22 filled surescripts icosapent ethyL 1 gram capsuleTAKE 2 CAPSULES BY MOUTH TWICE A DAY06/06/22 filled surescripts Kerendia 10 mg tabletTAKE 1 TABLET BY MOUTH EVERY DAY IN THE NDKCVFB05/25/23 filled surescripts levothyroxine 137 mcg tabletTAKE 1 TABLET BY MOUTH EVERY DAY09/04/22 filled surescripts metFORMIN ER 500 mg tablet,extended release 24 hrTAKE 2 TABLETS BY MOUTH TWICE A DAY09/04/22 filled surescripts metoprolol succinate ER 50 mg tablet,extended release 24 hrTAKE 1 TABLET BY MOUTH EVERY DAY09/04/22 filled surescripts omeprazole 20 mg capsule,delayed releaseTAKE 1 CAPSULE BY MOUTH EVERY DAY [id number]/25/23 filled surescripts Ozempic 0.25 mg or 0.5 mg (2 mg/3 mL) subcutaneous pen injectorinject 0.25 mg SQ once weekly x 4 weeks then increase to 0.5 mg SQ weekly with large meal09/25/22 prescribed Elio Gibson MD valsartan 160 mg-hydrochlorothiazide 25 mg tabletTAKE 1 TABLET BY MOUTH EVERY DAY07/26/22 filled surescripts Vitamin D3 125 mcg (5,000 unit) tabletTake 1 tablet every day by oral route.10/27/20 filled MIGRATION.[id number] Vitamin D Family History:Family History not reviewed (last reviewed 07/27/2022) Father - Malignant tumor of lung - Cerebrovascular accident Maternal Grandmother - Heart disease Paternal Grandmother - Heart disease Mother - Chronic obstructive lung disease - Essential hypertension no breast cancer, colon Female cancer paternal great aunt Social History:Social History not reviewed (last reviewed 07/27/2022) Home and EnvironmentWhere do you live?: Single-level houseDo you have smoke and carbon monoxide detectors in your home?: YesAre you passively exposed to smoke?: NoAre there any guns present in your home?: YesDo you use sunscreen routinely?: YesSubstance UseDo you or have you ever smoked tobacco?: Never smokerDo you or have you ever used any other forms of tobacco or nicotine?: NoWhat was the date of your most recent tobacco screening?: 07/17/2022Has tobacco cessation counseling been provided?: No (Notes: N/A)What is your level of alcohol consumption?: NoneIf you are , what was your level of alcohol consumption prior to ?: NoneDo you use any illicit or recreational drugs?: NoWhat is your level of caffeine consumption?: ModerateEducation and OccupationWhat is the highest grade or level of school you have completed or the highest degree you have received?: High school graduateWhat is your occupation?: [employer] Health and TravelHave you recently traveled abroad?: NoIn the 14 days before symptom onset, have you had close contact with a laboratory-confirmed COVID-19 while that case was ill?: NoIn the 14 days before symptom onset, have you had close contact with a person who is under investigation for COVID-19 while that person was ill?: NoDiet and ExerciseWhat type of diet are you following?: RegularDo you have any dietary restrictions?: NoLifestyleDo you wear a helmet when biking?: (Notes: does not bike)Do you use your seat belt or car seat routinely?: YesAdvance DirectiveDo you have a medical power of keller machine operator?: NoMarriage and SexualityWhat is your relationship status?: MarriedGender Identity and LGBTQ IdentityGender identity: Identifies as FemaleAssigned sex at : FemalePronouns: she/herSexual orientation: Straight or heterosexualMedical records Surgical History - 1994 Cardiac Cath Hysterectomy, Partial - 1999 Kidney Stones Lithotripsy Hernia Repair - 11/23/2019 Colonoscopy - 04/12/2019 Incisional Ventral Hernia Repair w/mesh 2019 c - section 1994 Dr Guthrie Additional HistoryNone recordedHistory of Present Illness:52 yo female comes in for follow up in management of uncontrolled type 2 DM (A1C of 9.4%), mixed dyslipidemia. last seen in May at that time we had patient uptitrate metformin to 1000 mg po twice daily as her renal function is in range (will address proteinuria with kerendia as noted below)- continued farxiga and glimepiride scale. She is tolerating her therapy well. Her sugars are running higher over 180 mg/dL - no hypoglycemia She was on ozempic before in the past and she had issues with diarrhea. We did trial patient on mounjaro and this made her have a lot of bowel issues so she i snot taking GLP1 agonist therapy. we trialed on kerendia and tolerating well. Recent microalbumin revealed improvement labs from 07/17/22:a1c 9.4%TSH of 3.580 uIU/mlFT4 of 2.16 ng/dLvit D 34 ng/mLglucose 207 mg/dLCr normalLFT [id number]/244/41/45H/H 14.8/46.9microalbumin <6 ug/mgReview of Systems:ROS as noted in the HPIPhysical ExamConstitutional:General Appearance: not anxious/nervous, no sweating, andoverweight. Level of Distress: no acute distress. Eyes:Lids and Conjunctivae: no discharge, pallor, lid lag, or periorbital edema and non-injected. Neck:Neck: supple, trachea midline, no masses, and full range of motion. Thyroid: no enlargement or nodules and non-tender. Neck vessels: no carotid bruits or thyroid bruits. Lymph Nodes: no anterior cervical LAD, posterior cervical LAD, submandibular LAD, submental LAD, preauricular LAD, or supraclavicular LAD. Cardiovascular:Apical Impulse: not displaced. Heart Auscultation: normal S1 and S2; no murmurs, rubs, or gallops; and regular rate and rhythm. Lungs:Auscultation: no wheezing, rales/crackles, or rhonchi and breath sounds normal, good air movement, and clear to auscultation. Psychiatric:Mental Status: normal mood and affect, no diffuse anxiety or paranoid ideations, and active and alert.Procedure DocumentationNone recordedAssessment/Plan1. Type II diabetes mellitus uncontrolled-a1c of 9.4% up from 9.2%- continue on metformin to 1000 mg po twice daily along with farxiga and glimepiride scale. She cannot tolerate mounjaro- will transition to ozempic 0.25 mg once weekly x 4 weeks then increase to 0.5 mg once weekly as tolerated. She has no hx of pancreatitis or medullary thyroid cancer and is willing to trial on a GLP1 agonist therapy. She was advised to contact clinic if she experiences any nausea, vomiting or significant thyroid pain / swelling or abdominal pain so we can discuss and discontinue and potentially look to other therapy. Discussed carb counting and how to read food labels. Recommended patient to utilize the diabetesService at [employer].com from the ADA website to help with food preparation as this presents ideal carb content per meal so this will make carb counting much easier for patient. Recommended she incorporate natural insulin sensitizers such as pears, apples, cinnamon, jocelin and sweet potatoes to help mobilize her endogenous insulin. Recommended up to 150 minutes of moderate level activity/exercise weekly.E11.65: Type 2 diabetes mellitus with hyperglycemia Ozempic 0.25 mg or 0.5 mg (2 mg/3 mL) subcutaneous pen injector - inject 0.25 mg SQ once weekly x 4 weeks then increase to 0.5 mg SQ weekly with large meal Qty: (3) 3 mL syringe Refills: 1 Pharmacy: [facility] [id number] 2. Dyslipidemia-Continue on statin therapy. Spent up to 25 minutes preparing to see the patient (eg, review of tests), obtaining and/or reviewing separately obtained history, performing a medically appropriate examination and evaluation, counseling and educating the patient, ordering medications, tests, along with documenting clinical information in the electronic health record, independently interpreting results and communicating results to the patient. Patient can be followed by PCP - she/he is aware of my resignation and last day of November 23. If needed his/her PCP can refer patient to another dental billing specialist in the area. All questions /concerns answered and refills necessary at visit today.E78.5: Hyperlipidemia, unspecified Return to Office Gladis Nguyễn MD for New Patient 15 at [facility] General Surgery on 09/26/2022 at 02:15 PM Cameron Romero MD for Any 15 at [facility] Internal Med Jeff 15 on 10/23/2022 at 03:30 PM Not Available [facility] 09/25/2022 12:52:51 [address] [address]XCOOMYSYAmairani BERNARD (id #[id number], : 1970) [facility] [place] [address] [address] Encounter Summary - Progress Note Date Printed: 09/26/2022 Documents sent via fax will include the followingmessage: This fax may contain sensitive and confidential personal health information that is being sent for the sole use of the intended recipient. Unintended recipients are directed to securely destroy any materials received. You are hereby notified that the unauthorized disclosure or other unlawful use of this fax or any personal health information is prohibited. To the extent patient information contained in this fax is subject to 42 CFR Part 2, this regulation prohibits unauthorized disclosure of these records. If you received this fax in error, please visit [email or web address] to notify the sender and confirm that the information will be destroyed. If you do not have internet access, please call to notify the sender and confirm that the information will be destroyed. Thank you for your attention and cooperation. [ID:[id number]] Patient Amairani Hilton (52yo, F) #[id number] 1970 Patient Demographics: Address [address] [place] [address] Encounter Notes: Encounter Reason/Date Ulcerative Colitis 09/26/2022 - 02:15PM - S[facility] General Surgery History of Present IllnessAMAIRANI WAS SEEN IN THE OFFICE TODAY FOR COLON EVALUATION PT HAS A HX/O IBD-UC X 4. YRS . HER LAST COLON WAS 2021. TODAY PT REPORTS THAT SHE IS DOING WELL AND NEEDS TO ESTABLISH CARE . Review of SystemsROS as noted in the HPI Vitals Ht: 5 ft 5 in (165.1 cm) Wt: 246 lbs (111.58 kg) BMI: 40.9 BP: 108/65 Pulse: 64 bpm O2Sat: 98% Results/InterpretationsNone recorded Physical ExamConstitutional:General Appearance:obese. Level of Distress: NAD. Ambulation: ambulating normally. Psychiatric:Insight: good judgement. Mental Status: normal mood and affect and active and alert. Orientation: to time, place, and person. Memory: recent memory normal and remote memory normal. Head:Head: normocephalic and atraumatic. Eyes:Lids and Conjunctivae: no discharge or pallor and non-injected. Pupils: PERRLA. Corneas: grossly intact. Fundoscopic: normal vessels and optic discs, no exudates or hemorrhages, and grossly normal except where noted. EOM: EOMI. Lens: clear. Sclerae: non-icteric. Vision: peripheral vision grossly intact and acuity grossly intact. ENMT:Ears: no lesions on external ear, EACs clear, TMs clear, and TM mobility normal. Hearing: no hearing loss and Rinne AC>BC. Nose: no polyp, lesions on external nose, septal deviation, sinus tenderness, or nasal discharge and nares patent and nasal passages clear. Lips, Teeth, and Gums: no mouth or lip ulcers or bleeding gums and normal dentition. Oropharynx: no erythema or exudates and moist mucous membranes and tonsils not enlarged. Neck:Neck: supple, FROM, trachea midline, and no masses. Lymph Nodes: no cervical LAD, supraclavicular LAD, axillary LAD, or inguinal LAD. Thyroid: no enlargement or nodules and non-tender. Lungs:Respiratory effort: no dyspnea. Percussion: no dullness, flatness, or hyperresonance. Auscultation: no wheezing, rales/crackles, or rhonchi and breath sounds normal, good air movement, and CTA except as noted. Chest Deformity: no pectus carinatum or excavatum; no thoracic deformity, left sternal bulge, or barrel chest; and normal-spaced nipples. Cardiovascular:Apical Impulse: not displaced. Heart Auscultation: normal S1 and S2; no murmurs, rubs, or gallops; and RRR. Neck vessels: no carotid bruits. Pulses including femoral / pedal: normal throughout. Abdomen:Bowel Sounds: normal. Inspection and Palpation: no tenderness, guarding, masses, rebound tenderness, or CVA tenderness and soft and non-distended. Liver: non-tender and no hepatomegaly. Spleen: non-tender and no splenomegaly. Hernia: none palpable. Musculoskeletal::Motor Strength and Tone: normal tone and motor strength. Joints, Bones, and Muscles: no contractures, malalignment, tenderness, or bony abnormalities and normal movement of all extremities. Extremities: no cyanosis, edema, varicosities, or palpable cord. Neurologic:Gait and Station: normal gait and station. Cranial Nerves: grossly intact. Sensation: grossly intact. Reflexes: DTRs 2+ bilaterally throughout. Coordination and Cerebellum: [id number]-[id number] intact and no tremor. Motor Strength normal facial right and left and normal right and left. Skin:Inspection and palpation: no rash, lesions, ulcer, induration, nodules, jaundice, or abnormal nevi and good turgor. Nails: normal. Back:Thoracolumbar Appearance: normal curvature. Assessment and Plan1. Ulcerative [id number]: Ulcerative colitis, unspecified, without complications balsalazide 750 mg capsule -TAKE 3 CAPSULES BY MOUTH DAILY Qty: (270) capsule Refills: 1 Pharmacy: [facility] [id number] DiscussionDiscussion NotesPT WITH HX/O IBD-UC. DOING WELL WITH BALSALAZIDE 750 MG , 3 TABS DAILY . CONTINUE SAME . F/U IN 6 MTHS . Return to Office Cameron Romero MD for Any 15 at [facility] Internal Med Jeff 15 on 10/23/2022 at 03:30 PM Gladis Nguyễn MD for Established Patient 15 at [facility] General Surgery on 03/20/2023 at 02:30 PM Patient Medical History: Allergies List Reviewed Allergies IODINATED CONTRAST MEDIA Medications Reviewed Medications NameDate Source Acidophilus1 time a day, start started [id number] allopurinoL 100 mg tabletTAKE 1 TABLET BY MOUTH EVERY DAY09/06/22 filled surescripts aspirin 81 mg tablet,delayed releaseTake 1 tablet every day by oral route., start started MIGRATION.[id number] atorvastatin 40 mg tabletTAKE 1 TABLET BY MOUTH EVERY DAY06/15/22 filled surescripts balsalazide 750 mg capsuleTAKE 3 CAPSULES BY MOUTH DAILY09/26/22 prescribed Gladis Nguyễn MD BD Insulin Syringe Ultra-Fine 1 mL 31 gauge x 5/16 USE INJECT B12 ONCE [id number]/23/22 filled surescripts busPIRone 10 mg tabletTAKE 1 TABLET BY MOUTH TWICE A DAY *NOTIFY MD OF ANY CHANGE IN MOOD/BEHAVIOR*08/07/22 filled surescripts ergocalciferol (vitamin D2) 1,250 mcg (50,000 unit) capsuleTAKE 1 CAPSULE BY MOUTH ONCE [id number]/07/23 renewed Cameron Romero MD Farxiga 5 mg tabletTAKE 1 TABLET BY MOUTH EVERY DAY06/10/22 filled surescripts fenofibrate 54 mg tabletTake 1 tablet(s) every day by oral route for 90 days.11/23/21 filled MIGRATION.[id number] fluticasone propionate 50 mcg/actuation nasal spray,suspensionSHAKE LIQUID AND USE 2 SPRAYS IN EACH NOSTRIL DAILY10/27/20 filled MIGRATION.[id number] gabapentin 300 mg capsuleTAKE 1 CAPSULE BY MOUTH TWICE A DAY09/04/22 filled surescripts glimepiride 2 mg tabletTAKE 2 TABLETS BY MOUTH TWICE A DAY BEFORE MEALS07/01/22 filled surescripts icosapent ethyL 1 gram capsuleTAKE 2 CAPSULES BY MOUTH TWICE A DAY06/06/22 filled surescripts Kerendia 10 mg tabletTAKE 1 TABLET BY MOUTH EVERY DAY IN THE [id number]/25/23 filled surescripts levothyroxine 137 mcg tabletTAKE 1 TABLET BY MOUTH EVERY DAY09/04/22 filled surescripts metFORMIN ER 500 mg tablet,extended release 24 hrTAKE 2 TABLETS BY MOUTH TWICE A DAY09/04/22 filled surescripts metoprolol succinate ER 50 mg tablet,extended release 24 hrTAKE 1 TABLET BY MOUTH EVERY DAY09/04/22 filled surescripts omeprazole 20 mg capsule,delayed releaseTAKE 1 CAPSULE BY MOUTH EVERY DAY [id number]/25/23 filled surescripts Ozempic 0.25 mg or 0.5 mg (2 mg/3 mL) subcutaneous pen injectorinject 0.25 mg SQ once weekly x 4 weeks then increase to 0.5 mg SQ weekly with large meal09/25/22 prescribed Elio Gibson MD valsartan 160 mg-hydrochlorothiazide 25 mg tabletTAKE 1 TABLET BY MOUTH EVERY DAY07/26/22 filled surescripts Vitamin D3 125 mcg (5,000 unit) tabletTake 1 tablet every day by oral route.10/27/20 filled MIGRATION.[id number] Vitamin D Family HistoryReviewed Family History Father - Malignant tumor of lung - Cerebrovascular accident Maternal Grandmother - Heart disease Paternal Grandmother - Heart disease Mother - Chronic obstructive lung disease - Essential hypertension no breast cancer, colon Female cancer paternal great aunt Past Medical History ABDOMINAL PAIN N AIDS/HIV N ALZHEIMER'S DISEASE N ANEMIA/BLOOD DISORDER N ANEURYSM N ANXIETY DISORDER N APPENDICITIS N ARTHRITISY, OA ATHEROSCLEROSIS N ATRIAL FIBRILLATION N AUTOIMMUNE DISEASE N BACK / NECK PROBLEMS N BENIGN PROSTATIC HYPERPLASIA N BLADDER PROBLEMS N BLOOD CLOTS N BLOOD DISEASES N BLOOD TRANSFUSION N BOWEL PROBLEMSY, UC BRONCHITIS N CANCER: SPECIFY N CARDIAC ARRHYTHMIA N CAROTID BLOCKAGE N CONSTIPATION N COPD N CORONARY ARTERY DISEASE (CAD) N DEMENTIA N DEPRESSION (INCLUDING POST ) N DIABETES, TYPEY, type 2 DIALYSIS N DIVERTICULITIS N DIZZINESSY EDEMA N GASTROINTESTINAL BLEEDING N GASTROINTESTINAL DISORDER N GERD/NAUSEA N GI PROBLEMSY GLAUCOMA N GOUTY Gall Stones N HEADACHES/MIGRAINES N HEART ARRHYTHMIA N HEART DISEASE/HEART PROBLEMS N HEARTBURN / REFLUX N HEPATITIS / LIVER DISEASE N HERPES N HIGH CHOLESTEROL / HYPERLIPIDEMIAY HISTORY OF DRUG ABUSE N HYPERTENSIONY HYPERTHYROIDISM N INFECTIOUS DISEASE N INSOMNIA N KIDNEY DISEASE N KIDNEY STONES N LIVER DISEASE N LUNG DISEASE/DISORDER N MRSA N MULTIPLE SCLEROSIS N NERVE DISEASEY, Diabetic peripheral neuropathy OBESITYY OSTEOPOROSIS N PERIPHERAL VASCULAR DISEASE N PROSTATE N RADIATION / CHEMOTHERAPY N SEIZURES/EPILEPSY N SHINGLES N SKIN PROBLEMS N SLEEP APNEAY SLEEP DISORDER N STROKE/TIA N Notes LAST PS02/28/2012 Split-Baseline weight 254 lbs. Slept 248/269 mins.= 92.2% sleep efficiency. Sleep latency 13.5 mins., REM latency 65 mins. AHI of 21.8 hr and an RDI of 23.5 hr. The REM AHI/RDI WAS 80.7 with a low oxygen saturation of 73%. Respiratory events clustered significantly during non supine REM sleep. Occasional moderate snores noted.Cpap was started at 6 cm. using a medium arnold fx interface. With CPAP 6 cm., she slept 87.5/200.5 minutes including supine REM. This yields a sleep effciency of 43.6%. AHI= 8.5 and the RDI= 9.2. The mean oxygen saturation was 95% with a sera of 81% CPAP 03/27/2012 titrated from 6-11cm. using a arnold fx with albert headgear. Sleep onset was very rapid and REM latency moderately early. Slept best with CPAP 11cm. for 95/104 minutes, including supine REM sleep. This yields a sleep efficiency of 91.3%. The AHI=0 and the RDI=1.9. The mean oxygen saturation was 95% with a sera of 92%. There were rare mild snores on this CPAP pressure. 10/29/2019 reviewed with pt/ss KEATON 01-02-21 reviewed with pt-ks reviewed with pt-kt Vaccine HistoryReviewed Vaccines Vaccine Type Date Amt. Route Site [facility] Lot # Mfr. Exp. Date VIS VIS Given Website Project Manager COVID-19 COVID-19, mRNA, LNP-S, PF, 100 mcg/0.5 mL dose (Moderna) 12/29/20 booster COVID-19 (SARS-COV-2) vaccine, unspecified 03/18/20 SHOT 2 pfizer COVID-19 (SARS-COV-2) vaccine, unspecified 02/26/20 shot 1 pfizer Diphtheria, Tetanus, Pertussis Tdap 09/22/19 0.5 mL Intramuscular Deltoid, Left [id number] Sanofi Pasteur 09/25/20 09/22/19 [id number] Influenza influenza, injectable, quadrivalent, preservative free 11/14/21 [facility] influenza, seasonal, injectable 12/15/20 influenza, high dose seasonal 11/11/13 Has received flu vaccine Electronically Signed by: GLADIS NGUYỄN MD(no signature on file) Not Available [facility] 09/26/2022 17:26:31 Procedures Surgical History Date Name Laterality Status Provider Name and Address Organization Details Recorded Time 07/28/19 Wound Care-Podiatry completed Serafin Hamilton DPM [address] [facility], [facility] [address], [place], [address], [place] [facility] 07/27/2022 11:03:45 11/23/19 Hernia Repair completed Not Available [facility] 2022 04:42:48 04/12/19 Colonoscopy completed Not Available [facility] 04/12/19 04:42:48 Kidney Stones completed Not Available [facility] 04/11/2022 04:42:48 Lithotripsy completed Not Available [facility] 04/11/2022 04:42:48 Hysterectomy, Partial completed Not Available [facility] 04/11/2022 04:42:48 Cardiac Cath completed [facility] Available [facility] 04/11/2022 04:42:48 completed Not Available [facility] 0 04/11/2022 04:42:48 Imaging Results Imaging Date Name Status LastModified by Organiz ation Details LastModified Time 05/15/2021 colonoscopy procedure (PROC) completed BARCODE Information not available 08/21/2022 15:44:36 12/04/2022 US, abdomen, limited completed [email or web address] [facility] (Imaging) [address] [place], [address], 03/18/2023 11:30:08 12/04/2022 US, liver completed [facility] [address] [place], [address], 03/18/2023 11:30:09 Procedure Notes None recorded. Medical Equipment None Reported. Allergies Allergen ID Allergen Name Allergen Category Reaction Reaction Severity Criticality Documentation Date Start Date Code Code System Note Provider Name and Address Organization Details Recorded Time 8761 Iodinated contrast media (substanc e) medicatio n Not available Not available Not available 04/11/2022 47469 2003 SNOMED Not Available [facility] 3 05:06:33 Medications Name Sig Start Date Stop Date Status Note LastModified by Organization Details LastModified Time atorvasta tin 40 mg tablet Take 1 tablet by mouth once daily active Not Available Not Available No t Available buspirone 5 mg tablet TAKE 1 TABLET BY MOUTH TWICE A DAY active Not Available Not Available No t Available metformin 500 mg tablet one tab po bid 07/16 completed Not Available Not Available Not Available levothyro xine 137 mcg tablet Take 1 tablet by mouth once daily active Not Available Not Available No t Available prednison e 10 mg tablet 10/28 completed Not Available Not Available Not Available venlafaxi ne ER 75 mg capsule,e xtended release 24 hr Take 1 capsule every day by oral route for 30 days. active Not Available Not Available No t Available clindamyc in HCl 300 mg capsule 07/11 completed Not Available Not Available Not Available cetirizin e 10 mg tablet 09/21 completed Not Available Not Available Not Available azithromy neeraj 250 mg tablet TAKE 2 TABLETS BY MOUTH ON DAY 1, AND THEN TAKE 1 TABLET BY MOUTH ONCE A DAY ON DAY 2 THROUGH DAY 5 active Not Available Not Available No t Available fluconazo le 150 mg tablet Take 1 tablet every day by oral route for 1 day. active Not Available Not Available No t Available benzonata te 200 mg capsule TAKE 1 CAPSULE BY MOUTH THREE TIMES A DAY FOR 10 DAYS active Not Available Not Available No t Available metoprolo l succinate ER 50 mg tablet,ex tended release 24 hr TAKE 1 TABLET BY MOUTH ONCE DAILY active Not Available Not Available No t Available cephalexi n 250 mg capsule Take 1 capsule 4 times a day by oral route for 7 days. active Not Available Not Available No t Available hydrocodo ne 5 mg-acetam inophen 325 mg tablet 07/09 completed Not Available Not Available Not Available ondansetr on HCl 8 mg tablet Take 1 tablet every 8 hours by oral route as needed. active Not Available Not Available No t Available meloxicam 15 mg tablet TAKE 1 TABLET BY MOUTH ONCE DAILY NEEDED TAKE WITH FOOD active Not Available Not Available No t Available prednison e 20 mg tablet Take 1 tablet twice a day by oral route for 10 days. active Not Available Not Available No t Available meclizine 12.5 mg tablet Take 1 tablet as needed by oral route. 07/09 completed Not Available Not Available Not Available ciproflox acin 250 mg tablet TAKE 1 TABLET BY MOUTH TWICE A DAY 06/30 completed Not Available Not Available Not Available allopurin ol 100 mg tablet Take 1 tablet by mouth once daily active Not Available Not Available No t Available ciproflox acin 500 mg tablet TAKE 1 TABLET BY MOUTH TWICE DAILY FOR 7 DAYS 03/07 completed Not Available Not Available Not Available sulfameth oxazole 800 mg-trimet hoprim 160 mg tablet TAKE 1 TABLET BY MOUTH TWICE A DAY 06/30 completed Not Available Not Available Not Available aspirin 81 mg tablet,de layed release Take 1 tablet every day by oral route. 2012 active Not Available Not Available Not Avai lable tramadol 50 mg tablet TAKE 1 TABLET BY MOUTH EVERY 6 HOURS NEEDED 06/30 completed Not Available Not Available Not Available amoxicill in 500 mg tablet Take 1 tablet 3 times a day by oral route. 02/11 completed Not Available Not Available Not Available glimepiri de 2 mg tablet TAKE 2 TABLETS BY MOUTH TWICE DAILY BEFORE MEAL(S) 03/07 completed never got refilled Not Available Not Available Not Available meloxicam 7.5 mg tablet Take 1 tablet every day by oral route with meals for 30 days. active Not Available Not Available No t Available levothyro xine 100 mcg tablet 1 po qday 04/26 completed Not Available Not Available Not Available oxycodone -acetamin ophen 5 mg-325 mg tablet TAKE 1 TABLET BY MOUTH EVERY 4 TO 6 HOURS NEEDED active Not Available Not Available No t Available levothyro xine 88 mcg tablet active Not Available Not Available Not Available amoxicill in 875 mg tablet Take 1 tablet every 12 hours by oral route for 7 days. active Not Available Not Available No t Available magnesium oxide 400 mg (241.3 mg magnesium ) tablet TAKE ONE TAB TWICE DAILY FOR 2 WEEKS 10/27 completed Not Available Not Available Not Available dexametha sone 1 mg tablet take pill at 10 p.m. the night before 8 a.m. cortisol test active Not Available Not Available No t Available diazepam 2 mg tablet TAKE 1 TABLET BY MOUTH TWICE A DAY NEEDED FOR VERTIGO active Not Available Not Available No t Available phenazopy ridine 100 mg tablet TAKE 2 TABLETS BY MOUTH 3 TIMES A DAY 07/30 completed Not Available Not Available Not Available potassium citrate ER 10 mEq (1,080 mg) tablet,ex tended release TAKE 2 TABLETS BY MOUTH 3 TIMES A DAY 06/30 completed Not Available Not Available Not Available doxycycli ne monohydra te 100 mg capsule TAKE 1 CAPSULE BY MOUTH TWICE A DAY DIRECTED FOR 10 DAYS 05/24 completed Not Available Not Available Not Available cephalexi n 500 mg capsule TAKE 1 CAPSULE BY MOUTH EVERY 8 HOURS FOR 10 DAYS 05/24 completed Not Available Not Available Not Available cyanocoba prasad (vit B-12) 1,000 mcg/mL injection solution Inject 1 mL every week by subcutan eous route in the morning for 90 days. 07/17 completed Not Available Not Available Not Available metformin 1,000 mg tablet Take 1 tablet twice a day by oral route for 90 days. active Not Available Not Available No t Available nitrofura ntoin macrocrys jefry 100 mg capsule Take 1 capsule twice a day by oral route for 7 days. active Not Available Not Available No t Available buspirone 10 mg tablet Take 1 tablet by mouth twice daily active Not Available Not Available No t Available prednison e 50 mg tablet TAKE 1 TAB BY MOUTH WITH DINNER & AT BEDTIME THE DAY BEFORE PROCEDUR E THEN 1 TAB ON THE MORNING OF active Not Available Not Available No t Available indometha neeraj 50 mg capsule Take 1 capsule 3 times a day by oral route with meals for 7 days. active Not Available Not Available No t Available gabapenti n 300 mg capsule Take 1 capsule by mouth twice daily active Not Available Not Available No t Available balsalazi de 750 mg capsule TAKE 3 CAPSULES BY MOUTH ONCE DAILY 2023 active Not Available Not Available Not Avai lable omeprazol e 20 mg capsule,d elayed release TAKE 1 CAPSULE BY MOUTH ONCE DAILY NEEDED active Not Available Not Available No t Available diclofena c sodium 75 mg tablet,de layed release Take 1 tablet twice a day by oral route as needed. active Not Available Not Available No t Available codeine 10 mg-guaife nesin 100 mg/5 mL oral liquid TAKE 5 ML BY MOUTH TWICE A DAY NEEDED FOR 5 DAYS. NO ALCOHOL, DRIVING, OR SEDATING MEDS active Not Available Not Available No t Available mupirocin 2 % topical ointment APPLY A SMALL AMOUNT TO THE AFFECTED AREA TOE WOUND 3 TIMES A DAY 05/24 completed Not Available Not Available Not Available furosemid e 20 mg tablet TAKE 1 TABLET BY MOUTH EVERY DAY 06/22 completed Not Available Not Available Not Available ergocalci ferol (vitamin D2) 1,250 mcg (50,000 unit) capsule Take 1 capsule by mouth once a week active Not Available Not Available No t Available methylpre dnisolone 4 mg tablets in a dose pack Take per package directio ns 01/29 completed Not Available Not Available Not Available colchicin e 0.6 mg tablet TAKE 1 TABLET BY MOUTH EVERY DAY 07/09 completed Not Available Not Available Not Available brompheni ramine-ps eudoephed rine-DM 2 mg-30 mg-10 mg/5 mL oral syrup Take 10 mL every 4 hours by oral route as needed for 7 days. 07/09 completed Not Available Not Available Not Available ondansetr on 4 mg disintegr ating tablet LET 1 TABLET DISSOLVE BY MOUTH EVERY 6 HOURS NEEDED FOR NAUSEA AND VOMITING active Not Available Not Available No t Available fluticaso ne propionat e 50 mcg/actua tion nasal spray,juice pension SHAKE LIQUID AND USE 2 SPRAYS IN EACH NOSTRIL DAILY active Not Available Not Available No t Available metformin ER 500 mg tablet,ex tended release 24 hr Take 2 tablets by mouth twice daily active Not Available Not Available No t Available loratadin e 10 mg tablet TAKE 1 TABLET BY MOUTH EVERY DAY NEEDED 01/02 completed Not Available Not Available Not Available levothyro xine 112 mcg tablet TAKE 1 TABLET BY MOUTH EVERY DAY 09/11 completed Not Available Not Available Not Available amoxicill in 875 mg-potass ium clavulana te 125 mg tablet Take 1 tablet every 12 hours by oral route active Not Available Not Available No t Available amoxicill in 500 mg-potass ium clavulana te 125 mg tablet TAKE 1 TABLET BY MOUTH EVERY 12 HOURS DIRECTED FOR 10 DAYS 09/25 completed Not Available Not Available Not Available Fish Oil 500 mg capsule Take 1 capsule every day by oral route. 10/27 completed Not Available Not Available Not Available valsartan 160 mg-hydroc hlorothia zide 25 mg tablet Take 1 tablet by mouth once daily active Not Available Not Available No t Available escitalop phill 10 mg tablet TAKE 1 TABLET BY MOUTH EVERY DAY 05/24 completed Not Available Not Available Not Available cyclobenz aprine 5 mg tablet Take 1 tablet 3 times a day by oral route as directed for 20 days. 07/09 completed Not Available Not Available Not Available metformin ER 1,000 mg tablet,ex tended release 24hr (osmotic) TAKE 1 TABLET BY MOUTH TWICE A DAY 07/11 completed Not Available Not Available Not Available nitrofura ntoin monohydra te/macroc rystals 100 mg capsule TAKE 1 CAPSULE BY MOUTH EVERY 12 HOURS FOR 7 DAYS 10/27 completed Not Available Not Available Not Available Vytorin 10 mg-20 mg tablet 06/14 completed Not Available Not Available Not Available Vytorin 10 mg-40 mg tablet one tab po qd 06/14 completed Not Available Not Available Not Available fenofibra te 160 mg tablet Take 1 tablet every day by oral route for 90 days. active Not Available Not Available No t Available Vitamin C 06/30 completed Not Available Not Available Not Available cranberry ONCE DAILY 09/18 completed Not Available Not Available Not Available zinc 06/30 completed Not Available Not Available Not Available Acidophil us 1 time a day 2022 active Not Available Not Available Not Avai lable Contour Test Strips BID 05/24 completed Not Available Not Available Not Available valsartan 320 mg-hydroc hlorothia zide 25 mg tablet 06/14 completed Not Available Not Available Not Available mesalamin e 1.2 gram tablet,de layed release Take 2 tablets every day by oral route. 06/22 completed Not Available Not Available Not Available Bystolic 5 mg tablet take 1/2 tablet daily 06/14 completed Not Available Not Available Not Available diclofena c 1 % topical gel APPLY 2 GRAM TO THE AFFECTED AREA(S) BY TOPICAL ROUTE 4 TIMES PER DAY 07/09 completed Not Available Not Available Not Available fenofibra te 54 mg tablet Take 1 tablet every day by oral route for 90 days. active Not Available Not Available No t Available Vitamin D3 125 mcg (5,000 unit) tablet Take 1 tablet every day by oral route. 03/07 completed Not Available Not Available Not Available Suprep Bowel Prep Kit 17.5 gram-3.13 gram-1.6 gram oral solution 06/22 completed Not Available Not Available Not Available Bydureon 2 mg subcutane ous extended release suspensio n Inject 2 mg every week by subcutan eous route as directed . 10/04 completed Not Available Not Available Not Available Linzess 290 mcg capsule Take 1 capsule every day by oral route. active Not Available Not Available No t Available icosapent ethyl 1 gram capsule Take 2 capsules by mouth twice daily active Not Available Not Available No t Available BD Insulin Syringe Ultra-Fin e 1 mL 31 gauge x 5/16 USE INJECT B12 ONCE WEEKLY active Not Available Not Available No t Available Invokana 100 mg tablet Take 1 tablet every day by oral route as directed for 30 days. 10/04 completed Not Available Not Available Not Available Zorvolex 35 mg capsule Take 1 capsule 3 times a day by oral route. active prn Not Available Not Available No t Available Farxiga 10 mg tablet TAKE 1 TABLET BY MOUTH ONCE DAILY. NEEDS TO AMKE AN APPOINTM ENT. active Not Available Not Available No t Available Farxiga 5 mg tablet TAKE 1 TABLET BY MOUTH EVERY DAY 11/20 completed Not Available Not Available Not Available Trulicity 0.75 mg/0.5 mL subcutane ous pen injector Inject 0.5 mL every week by subcutan eous route as directed . 06/14 completed Not Available Not Available Not Available mesalamin e 400 mg capsule (with delayed release tablets inside) TAKE 2 CAPSULES BY MOUTH 3 TIMES A DAY 06/22 completed Not Available Not Available Not Available Bydureon BCise 2 mg/0.85 mL subcutane ous auto-inje ctor Inject 2 mg every week by subcutan eous route at dinner for 90 days. 03/20 completed Not Available Not Available Not Available Ozempic 0.25 mg or 0.5 mg (2 mg/1.5 mL) subcutane ous pen injector INJECT BY SUBCUTAN EOUS ROUTE 0.5MG WEEKLY 06/30 completed Not Available Not Available Not Available InvisibleTouch Ultra2 Meter test sugars twice daily before meals 05/24 completed Not Available Not Available Not Available Kerendia 10 mg tablet Take by oral route for 30 days. active Not Available Not Available No t Available Mounjaro 5 mg/0.5 mL subcutane ous pen injector INJECT 5 MG (1 PEN) ONCE EVERY WEEK BY SUBCUTAN EOUS ROUTE FOR 28 DAYS. 07/17 completed Not Available Not Available Not Available Ozempic 0.25 mg or 0.5 mg (2 mg/3 mL) subcutane ous pen injector Inject by subcutan eous route for 30 days. active Not Available Not Available No t Available Vitals Date Recorded Body height Body mass index (BMI) Body weight Heart rate Respiratory rate Oxygen saturation Oxygen saturation in Arterial blood by Pulse oximetry Systolic blood pressure Diastolic blood pressure Provider Name and Address Organization Details Last Updated DateTime 3 165.1 cm 39.3 kg/m2 535115. 8 g 79 /min 14 /min 98 % 98 % 121 mm[Hg] 71 mm[Hg] Brit Baez [facility] 3 16:50:37 Date Recorded Body height Body mass index (BMI) Body weight Body temperature Respiratory rate Heart rate Systolic blood pressure Diastolic blood pressure Provider Name and Address Organization Details Last Updated DateTime 3 165.1 cm 41 kg/m2 263632. 44 g 97.9 [degF] 16 /min 64 /min 108 mm[Hg] 65 mm[Hg] Sydni Tao RN [facility] 3 10:46:55 Date Recorded Body height Body mass index (BMI) Body weight Heart rate Oxygen saturation Oxygen saturation in Arterial blood by Pulse oximetry Systolic blood pressure Diastolic blood pressure Provider Name and Address Organization Details Last Updated DateTime 3 165.1 cm 40.9 kg/m2 296444. 72 g 64 /min 98 % 98 % 108 mm[Hg] 65 mm[Hg] SHARON Crespo [facility] [employer] [facility] 3 15:14:16 Date Recorded Body height Body mass index (BMI) Body weight Body temperature Heart rate Systolic blood pressure Diastolic blood pressure Provider Name and Address Organization Details Last Updated DateTime 3 165.1 cm 41.3 kg/m2 165818. 91 g 97.7 [degF] 78 /min 130 mm[Hg] 66 mm[Hg] [facility] 3 16:12:12 Date Recorded Body height Body mass index (BMI) Body weight Body temperature Heart rate Systolic blood pressure Diastolic blood pressure Provider Name and Address Organization Details Last Updated DateTime 4 165.1 cm 39.9 kg/m2 268230. 17 g 97.2 [degF] 78 /min 128 mm[Hg] 82 mm[Hg] SHARON [facility]illo [facility] [employer] 4 17:47:57 Social History Question Answer Notes LastModified by Organizat ion Details LastModified Time Tobacco Smoking Status Never Smoker Not Available [facility] 04/11/2022 04:32:31 Do You Have An Advance Directive? No [id number] Information not available 04/11/2022 What Is Your Level Of Alcohol Consumption? None [id number] Information not available 04/11/2022 If You Are , What Was Your Level Of Alcohol Consumption Prior To ? None MIGRATION.[id number] Information not available 04/11/2022 What Is Your Level Of Caffeine Consumption? Moderate MIGRATION.27163 45111 Information not available 04/11/2022 In The 14 Days Before Symptom Onset, Have You Had Close Contact With A Laboratory-confir med COVID-19 While That Case Was Ill? No MIGRATION.19285 08720 Information not available 04/11/2022 In The 14 Days Before Symptom Onset, Have You Had Close Contact With A Person Who Is Under Investigation For COVID-19 While That Person Was Ill? No MIGRATION.17957 [id number] Information not available 04/11/2022 What Type Of Diet Are You Following? REGULAR MIGRATION.32958 79249 Information not available 04/11/2022 What Is The Highest Grade Or Level Of School You Have Completed Or The Highest Degree You Have Received? PD95237-1 MIGRATION.65291 93803 Information not available 04/11/2022 What Is Your Occupation? [employer] MIGRATION.79548 22261 Information not available 04/11/2022 Have There Been Any Changes To Your Family Or Social Situation? No MIGRATION.95820 10045 Information not available 04/11/2022 What Is The Fluoride Status Of Your Home? Unknown MIGRATION.41131 77092 Information not available 04/11/2022 Are There Any Guns Present In Your Home? Yes MIGRATION.48254 04172 Information not available 04/11/2022 Do You Use Insect Repellent Routinely? Yes MIGRATION.39331 44473 Information not available 04/11/2022 Where Do You Live? [place] MIGRATION.69629 65279 Information not available 04/11/2022 Do You Have A Medical Power Of Product Support Technician? No MIGRATION.28738 52258 Information not available 04/11/2022 What Was The Date Of Your Most Recent Tobacco Screening? 03/07/2023 [email or web address] Information not available 03/07/2023 Do You Have Any Pets? Yes MIGRATION.75059 23107 Information not available 04/11/2022 What Is Your Relationship Status? MIGRATION.10950 52172 Information not available 04/11/2022 Do You Use Your Seat Belt Or Car Seat Routinely? Yes MIGRATION.86686 73407 Information not available 04/11/2022 Do You Have Smoke And Carbon Monoxide Detectors In Your Home? Yes MIGRATION.27571 06330 Information not available 04/11/2022 Are You Passively Exposed To Smoke? No MIGRATION.15543 59748 Information not available 04/11/2022 Are There Any Smokers In Your House? No MIGRATION.72251 73269 Information not available 04/11/2022 What Types Of Sporting Activities Do You Participate In? None MIGRATION.87815 13961 Information not available 04/11/2022 Do You Feel Stressed (tense, Restless, Nervous, Or Anxious, Or Unable To Sleep At Night)? TI34347-4 MIGRATION.72831 74024 Information not available 04/11/2022 Do You Use Any Illicit Or Recreational Drugs? No MIGRATION.65235 22492 Information not available 04/11/2022 Do You Use Sunscreen Routinely? Yes MIGRATION.99801 65183 Information not available 04/11/2022 Has Tobacco Cessation Counseling Been Provided? No N/A MIGRATION.77769 08459 Information not available 04/11/2022 Have You Recently Traveled Abroad? No MIGRATION.98961 77174 Information not available 04/11/2022 Do You Have Any Dietary Restrictions? No MIGRATION.16519 87880 Information not available 04/11/2022 Do You Or Have You Ever Used Any Other Forms Of Tobacco Or Nicotine? No MIGRATION.19651 33222 Information not available 04/11/2022 Sex: Female Functional Status None recorded. Mental Status None recorded. Family History Relationship Description Onset Age of this Age Resolved Age Notes LastModified by Organization Details LastModified Time Father Malignant tumor of lung MIGRATION.767 [id number] Not available 04/11/2022 04:42:53 Father Cerebrovascu lar accident MIGRATION.814 [id number] Not available 04/11/2022 04:42:54 Maternal Grandmother Heart disease MIGRATION.614 [id number] Not available 04/11/2022 04:42:54 Paternal Grandmother Heart disease MIGRATION.775 [id number] Not available 04/11/2022 04:42:54 Mother Chronic obstructive pulmonary disease MIGRATION.768 [id number] Not available 04/11/2022 04:42:54 Mother Essential hypertension MIGRATION.364 [id number] Not available 04/11/2022 04:42:54 Notes:no breast cancer, colo n Female cancer paternal great aunt Medical History Condition Response NERVE DISEASE Y BLINDNESS N RHEUMATIC FEVER N KIDNEY STONES N BLADDER PROBLEMS N MRSA N OTHER # 1 N POLIO N LUNG DISEASE/DISORDER N HISTORY OF DRUG ABUSE N RADIATION / CHEMOTHERAPY N COPD N Other # 2 Y BLOOD DISEASES N EAR OR HEARING PROBLEMS N MUMPS N SHINGLES N DEPRESSION (INCLUDING POST ) N BOWEL PROBLEMS Y STROKE/TIA N ULCERS N BENIGN PROSTATIC HYPERPLASIA N MEASLES N HYPOTENSION N MYOCARDIAL INFARCTION N OBESITY Y GERD/NAUSEA N ANEURYSM N URINARY/BLADDER/KIDNEY PROBLEMS N CORONARY ARTERY DISEASE (CAD) N ADDICTION CONCERNS N Impotence N ENDOMETRIOSIS N USE OF BLOOD THINNERS N SKIN PROBLEMS N GASTROINTESTINAL DISORDER N PERIPHERAL VASCULAR DISEASE N MUSCLE,JOINT OR BONE PROBLEMS N GASTROINTESTINAL BLEEDING N BLOOD CLOTS N ASTHMA N CATARACTS N ERECTILE DYSFUNCTION N VARICOSITIES N GI PROBLEMS Y Low Testosterone N INFERTILITY N AIDS/HIV N CHEMOTHERAPY / RADIATION N LIVER DISEASE N MALE HYPOGONADISM N HYPERTENSION Y Deficiency Y TOURETTE'S N ANXIETY DISORDER N BLOOD TRANSFUSION N ANEMIA/BLOOD DISORDER N CHRONIC EAR INFECTIONS N BRONCHITIS N TUBERCULOSIS N GLAUCOMA N FOOT PROBLEM Y DIVERTICULITIS N SLEEP APNEA Y CHICKENPOX N INFECTIOUS DISEASE N PROSTATE N HEART ARRHYTHMIA N INSOMNIA N HIGH CHOLESTEROL / HYPERLIPIDEMIA Y HYPERTHYROIDISM N EYE PROBLEMS N EDEMA N CHRONIC PAIN SYNDROME N HYPOTHYROIDISM Y CONSTIPATION N CAROTID BLOCKAGE N BACK / NECK PROBLEMS N ATHEROSCLEROSIS N BREAST PROBLEMS N DIALYSIS N ECZEMA N OSTEOPOROSIS N ARTHRITIS Y APPENDICITIS N DIABETES, TYPE Y BAD TEETH N ENT N HEARTBURN / REFLUX N AUTISM SPECTRUM DISORDER (ASD) N HEPATITIS / LIVER DISEASE N GOUT Y SLEEP DISORDER N ALZHEIMER'S DISEASE N Brain Problems N HERPES N DEMENTIA N SEIZURES/EPILEPSY N HEADACHES/MIGRAINES N VASCULAR DISEASE N PACEMAKER N Blood Disorder N DIZZINESS Y KIDNEY DISEASE N HEART DISEASE/HEART PROBLEMS N MULTIPLE SCLEROSIS N CARDIAC ARRHYTHMIA N CANCER: SPECIFY N Gall Stones N ATRIAL FIBRILLATION N PULMONARY EMBOLISM N AUTOIMMUNE DISEASE N Gynecological HistoryNo gynecological history recorded. Obstetrics History GPAL:G 0 P 0 0 0 0 Immunizations Vaccine Type Date Status Note Provider Nam e and Address Organization Details Recorded Time Influenza, split virus, quadrivalent, PF 2 completed Not Available [facility] 03/20/2023 11:50:45 COVID-19, mRNA, LNP-S, PF, 100 mcg/0.5mL dose or 50 mcg/0.25mL dose 1 completed Not Available [facility] 03/20/2023 11:50:45 SARS-COV-2 (COVID-19) vaccine, UNSPECIFIED 1 completed Not Available [facility] 03/20/2023 11:50:45 SARS-COV-2 (COVID-19) vaccine, UNSPECIFIED 1 completed Not Available [facility] 03/20/2023 11:50:45 Influenza, split virus, trivalent, preservative 1 completed Not Available [facility] 03/20/2023 11:50:45 Influenza, high-dose, trivalent, PF 4 completed Not Available [facility] 03/20/2023 11:50:45 Tdap 0 completed Not Available [facility] 03/20/2023 11:50:45 Past Encounters Encounter ID Performer Location Encounter Start Date Encounter Closed Date Diagnosis/Indication Diagnosis SNOMED-CT Code Diagnosis ICD10 Code Diagnosis Note [id number] [facility] [employer] [facility] [facility] Internal Med [facility] [address] [place] [address] 06/30/2020 00:00:00 06/30/2020 13:57:19 [id number] [facility] Internal Med [facility] [address] [place] [address] 10/27/2020 00:00:00 10/27/2020 18:30:28 [id number] [facility] Internal Med [facility] [address] [place] [address] 11/24/2020 00:00:00 11/24/2020 14:55:06 [id number] [facility] [place] [address] [place] [address] 01/02/2021 00:00:00 01/02/2021 18:34:29 [id number] [facility] Internal Med [facility] [address] [facility] 15 [place] [address] 01/19/2021 00:00:00 01/19/2021 18:34:13 [id number] [facility] General Surgery [address] [facility] 27 [place] [address] 02/14/2021 00:00:00 02/14/2021 13:36:35 [id number] [facility] [place] [address] [place] [address] 03/06/2021 00:00:00 03/06/2021 16:06:27 [id number] [facility] Podiatry [address], [address] [place] [address] 03/09/2021 00:00:00 03/09/2021 15:21:10 [id number] [facility] Internal Med [facility] [address] [facility] 15 [place] [address] 06/06/2021 00:00:00 06/14/2021 12:41:12 [id number] [facility] Internal Med [facility] [address] [place], [place] [address]e., [facility] 15 [place] [address] 07/11/2021 00:00:00 07/11/2021 17:56:57 [id number] [facility] Podiatry [address] [address] 08/01/2021 00:00:00 08/01/2021 16:07:54 [id number] _ATHENA_M IGRATION_ DEFAULT_1 _1 , 08/03/2021 00:00:00 08/03/2021 17:40:07 [id number] [facility] Podiat[facility] [place] [address] [place] [address], [address] [place] [address] 08/17/2021 00:00:00 08/17/2021 17:09:35 [id number] [facility] Podiatry [address], [address] [place] [address] 09/14/2021 00:00:00 10/09/2021 12:17:28 [id number] [facility] Pod[facility] [place] [address] [place] [address], [address] [place] [address] 09/21/2021 00:00:00 09/21/2021 17:21:52 [id number] [facility] Internal Med [facility] [address] [facility] 15 [place] [address] 10/10/2021 00:00:00 10/10/2021 17:45:20 [id number] [facility] [place] [address] [place] [address] 11/23/2021 00:00:00 11/23/2021 17:22:47 [id number] [facility] Internal Med [facility] [address] [place] [address] Ave[address] [address] 03/20/2022 00:00:00 03/20/2022 16:46:49 [id number] Elio Gibson MD [facility] [place] [address] [place] [address] 05/24/2022 16:12:45 05/24/2022 17:01:07 Uncontrolled type 2 diabetes mellitus [id number] E11.65 a1c of 9.2%- will uptitrate metformin to 1000 mg po twice daily as her renal function is in range (will address proteinuri a with kerendia as noted below)- continue farxiga and glimepirid e scale. She did not tolerate the mounjaro well due to hx of UC. Discussed carb counting and how to read food labels. Recommende d patient to utilize the diabetesfo Signal Vine.EpiBone from the ADA website to help with food preparatio n as this presents ideal carb content per meal so this will make carb counting much easier for patient. Recommende d she incorporat e natural insulin collection correspondent s such as pears, apples, cinnamon, jocelin and sweet potatoes to help mobilize her endogenous insulin. Recommende d up to 150 minutes of moderate level activity/e xercise weekly. She is aware to complete the DST as she has labs and medication at home to screen for hypercorti solism Hypothyroidism 94742539 E03.9 TSH in range- continue LT4 137 mcg daily. Mixed hyperlipidemia 267 075654 E78.2 will continue statin therapy- will request potential start of generic vascepa as brand name vascepa is exceptiona lly expensive and her TG are out of goal range. Proteinuria 68604884 R80 .9 Trial on kerendia 10 mg daily- microalbum in level elevated- she is aware to complete her potassium level 2 weeks following start of therapy to monitor for any rise of potassium- she is not taking spironolac tone or any potassium supplement s. Spent up to 28 minutes preparing to see the patient (eg, review of tests), obtaining and/or reviewing separately obtained history, performing a medically appropriat e examinatio n and evaluation , counseling and educating the patient, ordering medication s, tests, along with documentin g clinical informatio n in the electronic health record, independen tly interpreti ng results and communicat ing results to the patient. RTC in 4 months. Patient was provided a handwritte n lab order which contains our fax number. If she chooses to go outside of the [facility] system to obtain labwork she was advised to provide our fax number and my informatio n to the lab she will be obtaining labwork from in order to have her labs properly forwarded over for me to review so there is no loss of follow up due to use of outside network. She was also advised to contact our clinic informing us that she has completed her labwork so we are aware we will need to reach out to the appropriat e laboratory to request her results be forwarded to us so I might have the ability to review and make further medical decision making in her case. She voiced understand ing. [id number] Cameron elias MD S_[facility] Internal Med [facility] [address] [facility] [place] [address] 07/17/2022 16:15:03 07/17/2022 17:42:34 Screening - NAD [id number] Z13.9 C-scope: Did have this on 04/12/2019 , Dr Sienna Fuentes 05/15/2021 , on balsalazid e 2250mg dailyWWE: Did see Dr Edwards 10/29/2019 , she will make this apt on her own Mammogram: 12/16/2019 : NegMammogr am: 02/02/2021 : NegOrdered 07/17/2022 DEXA: 02/01/2021 : Neg Get yearly flu shotsTdap 09/22/2019 UTD on COVID 19 vaccine RTC in 3 monthsDo labsER if worseShe did verbalize her understand ing of the above Generalize d anxiety disorder 15893734 F41.1 On buspirone 10mg bidOn lexapro 10mg daily, given by Dr Duval suicidal or homicidal Needs to see Dr Alvares Type 2 sasha betes mellitus without complication 196087890 E11.9 OV 06/30/2020 :On metformin 1000mg bidOn ozempic will d/c this as noted to have incidental pancreatit is on the CT doneOn Giuliana eeds to see eye MD and pigment weigher Get an apt with Dr Gibson endo OV 10/27/2020 :UA: NegativeOn metformin 1000mg bidWill start on farxiga 5mg daily, all side effects explained to herWill see Dr Gibson 01/02/2021 OV 01/19/2021 :On bydureonOn farxigaOn glimepirid e 2mg bidOn metformin ER 500mg bidDr Gibson 01/02/2021 , next 03/06/2020 OV 06/06/2021 :On metformin, she will call with the correct doseDr Popeye 03/06/2021 Dr Hamilton 03/09/2021 , treated for the open wound OV 10/10/2021 :On metformin ER 500mg dailyOn glimepirid e 2mg 2 bidOn farxiga 5mg dailyOn bydureon 2mg weekly OV 03/20/2022 :On Farxiga 10mg dailyOn glimepirid e 2mg 2 tab bidOn metformin ER 500mg dailyOn Mounjaro OV 07/17/2022 :On Farxiga 5mg daily can do 10mg dailyOn glimepirid e 2mg 2 tab bidOn metformin ER 500mg dailyDr Hamilton 09/21/2021 Dr Gibson 05/24/2022 , next apt 09/25/2022 Hyperlipidemia 44493498 E78.5 On ASAOn atorvastat in 40mg dailyOn fenofibrat e 54mg daily now Not on vascepa Get labs Essential hypertension 31394436 I10 On ASAOn metoprolol ER 50mg dailyOn valsartan- HCTZ 160-25mg daily Did see Dr Johnson cardiology 08/10/2020 , next in 6 months Liver enzy mes level above reference range 577834083 R74.01 GGT elevated: abstain for ETOH! US liver 02/01/2021 : Mild hepatomega lyNeeds to see GI hepatology Vitamin D deficiency 347 91509 E55.9 Hypothyroidism 26767310 E03.9 S/p US thyroid and s/p FNAC 01/19/2020 : benign On levothyrox ine 137mcgs dailyGet labs Gout 42968215 M10.9 On allopurino l 100mg dailyDoes well with this Ulcerative colitis 04841 004 K51.90 On balsalazid e 750mg 3 caps daily, seen by Dr Fuentes 05/15/2021 Does well Neuropathy 404944146 G62 .9 On gabapentin 300mg bidDoes well on this Hernia of anterior abdominal wall 402368304 K43.[address] Velásquez S/p post op visit on 12/17/2019 Gastroesop hageal reflux disease without esophagitis 604482027 K21.9 On PPITake only as needed Proteinuria 15719515 R80 .[address] Díaz nephrology , declines any more referralsO n melodie now given by Dr GibsonGet labs Morbid obesity 656979649 E66.[address] Gibson, more diet and exercise is neededDr Gibson Screening for malignant neoplasm of breast 862478926 Z12.39 [id number] Serafin Hamilton DPM [employer] [facility] Podiatry [address], [facility] 4 [place] [address] 07/27/2022 10:31:12 07/27/2022 11:08:18 Cellulitis of toe of left foot 2506670414 3333575 L03.032 left 2nd toe-Resolv edfinish oral antibiotic sfollow-up in 3 weeks Skin ulcer of toe due to diabetes mellitus type 2 [id number] 8084066 E11.621 debrided todayEduca william on wound careApply daily wound care dressings and offloading to prevent worsening woundFollo w-up in 3 weeks Diabetic p eripheral neuropathy 975555946 E11.42 continue diabetic control and supportive shoe gear Diabetes mellitus 474126 [address] Bustamante due to poorly controlled diabetes [id number] Serafin Hamilton DPM S_[facility] Podiatry [address], [facility] 4 [place] [address] 08/21/2022 16:39:00 08/21/2022 17:17:49 Skin ulcer of toe due to diabetes mellitus type 2 6659104961 3085245 E11.621 Resolvedco ntinue supportive shoe gearCheck feet daily for wounds infectionF ollow-up in 3 months for diabetic foot care Cellulitis of toe of left foot 1582114739 2485276 L03.032 resolved Diabetic p eripheral neuropathy 812173965 E11.42 continue diabetic control and supportive shoe gear Diabetes mellitus 827765 [address] Bustamante due to poorly controlled diabetes [id number] Elio Gibson MD [facility] [place] [address] [place] [address] 09/25/2022 09:59:49 09/25/2022 11:24:13 Uncontrolled type 2 diabetes mellitus 014261065 E11.65 a1c of 9.4% up from 9.2%- continue on metformin to 1000 mg po twice daily along with farxiga and glimepirid e scale. She cannot tolerate mounjaro- will transition to ozempic 0.25 mg once weekly x 4 weeks then increase to 0.5 mg once weekly as tolerated. She has no hx of pancreatit is or medullary thyroid cancer and is willing to trial on a GLP1 agonist therapy. She was advised to contact clinic if she experience s any nausea, vomiting or significan t thyroid pain / swelling or abdominal pain so we can discuss and discontinu e and potentiall y look to other therapy. Discussed carb counting and how to read food labels. Recommende d patient to utilize the diabetesfo Signal Vine.EpiBone from the ADA website to help with food preparatio n as this presents ideal carb content per meal so this will make carb counting much easier for patient. Recommende d she incorporat e natural insulin collection correspondent s such as pears, apples, cinnamon, jocelin and sweet potatoes to help mobilize her endogenous insulin. Recommende d up to 150 minutes of moderate level activity/e xercise weekly. Dyslipidemia 270589997 E 78.5 Continue on statin therapy. Spent up to 25 minutes preparing to see the patient (eg, review of tests), obtaining and/or reviewing separately obtained history, performing a medically appropriat e examinatio n and evaluation , counseling and educating the patient, ordering medication s, tests, along with documentin g clinical informatio n in the electronic health record, independen tly interpreti ng results and communicat ing results to the patient. Patient can be followed by PCP - she/he is aware of my resignatio n and last day of November 23. If needed his/her PCP can refer patient to another endocrinol ogist in the area. All questions /concerns answered and refills necessary at visit today. [id number] Gladis Nguyễn MD [employer] [facility] General Surgery [address] [place] [address] 09/26/2022 15:12:52 09/26/2022 16:39:00 Ulcerative colitis 46359477 K51.90 [id number] Cameron elias MD [employer] [facility] Internal Med [place] [address] [place] [address] 11/20/2022 16:00:23 11/20/2022 16:49:36 Screening - NAD 608471889 Z13.9 C-scope: Did have this on 04/12/2019 , Dr Sienna Fuentes 05/15/2021 , on balsalazid e 2250mg dailyDr Bhaskar 09/26/2022 , on balsalazid e 750mg capsule, next apt 03/20/2023 WWE: Did see Dr Edwards 10/29/2019 , she will make this apt on her own Mammogram: 12/16/2019 : NegMammogr am: 02/02/2021 : NegOrdered 07/17/2022 DEXA: 02/01/2021 : Neg Get yearly flu shotsTdap 09/22/2019 UTD on COVID 19 vaccine RTC in 3 monthsDo labsER if worseShe did verbalize her understand ing of the above Generalize d anxiety disorder 21313315 F41.1 On buspirone 10mg bidNot on lexapro 10mg daily, given by Dr Duval suicidal or homicidal Needs to see Dr Alvares Type 2 sasha betes mellitus without complication 413852585 E11.9 OV 06/30/2020 :On metformin 1000mg bidOn ozempic will d/c this as noted to have incidental pancreatit is on the CT doneOn changChidi eeds to see eye MD and pigment weigher Get an apt with Dr Gibson endo OV 10/27/2020 :UA: NegativeOn metformin 1000mg bidWill start on farxiga 5mg daily, all side effects explained to herWill see Dr Gibson 01/02/2021 OV 01/19/2021 :On bydureonOn farxigaOn glimepirid e 2mg bidOn metformin ER 500mg bidDr Popeye 01/02/2021 , next 03/06/2020 OV 06/06/2021 :On metformin, she will call with the correct doseDr Popeye 03/06/2021 Dr Hamilton 03/09/2021 , treated for the open wound OV 10/10/2021 :On metformin ER 500mg dailyOn glimepirid e 2mg 2 bidOn farxiga 5mg dailyOn bydureon 2mg weekly OV 03/20/2022 :On Farxiga 10mg dailyOn glimepirid e 2mg 2 tab bidOn metformin ER 500mg dailyOn Mounjaro OV 07/17/2022 :On Farxiga 5mg daily can do 10mg dailyOn glimepirid e 2mg 2 tab bidOn metformin ER 500mg dailyDr Alfonso 09/21/2021 Dr Gibson 09/25/2022 OV 11/20/2022 :On glimeperid e 2mg 2 tab bidOn metformin ER 500mg 2 tabs bidOn ozempic started by Dr Gibson, not taking this as it is very expensiveO n FarxigaMor e diet and exercise is needed, states that she may change insurance then her Ozempic may be coveredCau tioned her that if the A1C does not decrease, she may need insulin, is very adamant that she does not want to get on insulin at this timeGet labs Hyperlipidemia 07467192 E78.5 On ASAOn atorvastat in 40mg dailyOn fenofibrat e 54mg daily now Not on vascepa Get labs Essential hypertension 91238675 I10 On ASAOn metoprolol ER 50mg dailyOn valsartan- HCTZ 160-25mg daily Did see Dr Johnson cardiology 08/10/2020 , next in 6 months Liver enzy mes level above reference range 753964726 R74.01 GGT elevated: abstain for ETOH! US liver 02/01/2021 : Mild hepatomega lyNeeds to see GI hepatology Vitamin D deficiency 347 47601 E55.9 Can d/c vit d once doneRepeat the vit d Hypothyroidism 41652660 E03.9 S/p US thyroid and s/p FNAC 01/19/2020 : benign On levothyrox ine 137mcgs dailyGet labs Gout 12367001 M10.9 On allopurino l 100mg dailyDoes well with this Ulcerative colitis 00717 004 K51.90 On balsalazid e 750mg 3 caps daily, seen by Dr Fuentes 05/15/2021 , Dr Nguyễn Does well Neuropathy 768930093 G62 .9 On gabapentin 300mg bidDoes well on this Hernia of anterior abdominal wall 645315186 K43.[address] Velásquez S/p post op visit on 12/17/2019 Gastroesop hageal reflux disease without esophagitis 458395568 K21.9 On PPITake only as needed Proteinuria 18094543 R80 .[address] Díaz nephrology , declines any more referralsO n kerendia now given by Dr GibsonGet labs Morbid obesity 832433496 E66.[address] Gibson, more diet and exercise is neededDr Gibson Screening for malignant neoplasm of breast 311053243 Z12.39 Screening for osteoporosis 563129442 Z13.820 Uncontroll ed type 2 diabetes mellitus 309687947 E11.65 [id number] Cameron elias MD [facility] Internal Med [address] [facility], [address] [place] [address] 03/07/2023 17:28:52 03/07/2023 18:14:04 Screening - NAD 223783689 Z13.9 C-scope: Did have this on 04/12/2019 , Dr Sienna Fuentes 05/15/2021 , on balsalazid e 2250mg dailyDr Bhaskar 09/26/2022 , on balsalazid e 750mg capsule, next apt 03/20/2023 WWE: Did see Dr Edwards 10/29/2019 , she will make this apt on her own Mammogram: 12/16/2019 : NegMammogr am: 02/02/2021 : NegOrdered 07/17/2022 DEXA: 02/01/2021 : Neg Get yearly flu shotsTdap 09/22/2019 UTD on COVID 19 vaccine RTC in 3 monthsDo labsER if worseShe did verbalize her understand ing of the above Generalize d anxiety disorder 71488710 F41.1 On buspirone 10mg bidNot on lexapro 10mg daily, given by Dr Duval suicidal or homicidal Needs to see Dr Alvares Type 2 sasha betes mellitus without complication [id number] E11.9 OV 06/30/2020 :On metformin 1000mg bidOn ozempic will d/c this as noted to have incidental pancreatit is on the CT doneOn Giuliana eeds to see eye MD and pigment weigher Get an apt with Dr Gibson endo OV 10/27/2020 :UA: NegativeOn metformin 1000mg bidWill start on farxiga 5mg daily, all side effects explained to herWill see Dr Gibson 01/02/2021 OV 01/19/2021 :On bydureonOn farxigaOn glimepirid e 2mg bidOn metformin ER 500mg bidDr Gibson 01/02/2021 , next 03/06/2020 OV 06/06/2021 :On metformin, she will call with the correct doseDr Popeye 03/06/2021 Dr Hamilton 03/09/2021 , treated for the open wound OV 10/10/2021 :On metformin ER 500mg dailyOn glimepirid e 2mg 2 bidOn farxiga 5mg dailyOn bydureon 2mg weekly OV 03/20/2022 :On Farxiga 10mg dailyOn glimepirid e 2mg 2 tab bidOn metformin ER 500mg dailyOn Mounjaro OV 07/17/2022 :On Farxiga 5mg daily can do 10mg dailyOn glimepirid e 2mg 2 tab bidOn metformin ER 500mg dailyDr Alfonso 09/21/2021 Dr Gibson 09/25/2022 OV 11/20/2022 :On glimeperid e 2mg 2 tab bidOn metformin ER 500mg 2 tabs bidOn ozempic started by Dr Gibson, not taking this as it is very expensiveO n FarxigaMor e diet and exercise is needed, states that she may change insurance then her Ozempic may be coveredCau tioned her that if the A1C does not decrease, she may need insulin, is very adamant that she does not want to get on insulin at this timeGet labs OV 03/07/2023 :On farxiga 10mgOn metformin ER 500mg 2 tabs bidOn OzempicGet labsShould see endocrine now Hyperlipidemia [id number] E78.5 On ASAOn atorvastat in 40mg dailyOn fenofibrat e 54mg daily now Not on vascepa Get labs Essential hypertension 44973385 I10 On ASAOn metoprolol ER 50mg dailyOn valsartan- HCTZ 160-25mg daily Did see Dr Johnson cardiology 08/10/2020 , next in 6 months Liver enzy mes level above reference range 257667297 R74.01 GGT elevated: abstain for ETOH! US liver 02/01/2021 : Mild hepatomega lyNeeds to see GI hepatology Vitamin D deficiency 347 92149 E55.9 Can d/c vit d once doneRepeat the vit d Hypothyroidism 38448036 E03.9 S/p US thyroid and s/p FNAC 01/19/2020 : benign On levothyrox ine 137mcgs dailyGet labs Gout 78707092 M10.9 On allopurino l 100mg dailyDoes well with this Ulcerative colitis 98039 004 K51.90 On balsalazid e 750mg 3 caps daily, seen by Dr Fuentes 05/15/2021 , Dr Nguyễn Does well Neuropathy 215031006 G62 .9 On gabapentin 300mg bidDoes well on this Hernia of anterior abdominal wall 072930266 K43.[address] Velásquez S/p post op visit on 12/17/2019 Gastroesop hageal reflux disease without esophagitis 198711060 K21.9 On PPITake only as needed Proteinuria 52872439 R80 [address] Díaz nephrology , referredOn kerendia now given by Dr Adama cedeno Morbid obesity 263019871 E66.[address] Gibson, more diet and exercise is neededDr Gibson Screening for malignant neoplasm of breast 017498715 Z12.39 Screening for osteoporosis 992555592 Z13.820 Health Concerns Section Related Observation LastModified by Organization Detai ls LastModified Time None Recorded Concern Status LastModified by Organization Details LastModified Time None Recorded Advance Directives Directive N: Payers Encounter Date Sequence Insurance Name Policy Number Policy Larios Covered Member ID Larios Member ID Guarantor Name 08/21/2022 1 [employer] - [facility] Amairani Hilton [id number] Amairani Hilton 09/25/2022 1 [place] [id number] Amairani Hilton [id number] Amairani Hilton 09/26/2022 1 [place] [id number] Amairani Hilton [id number] Amairani Hilton 11/20/2022 1 [place] [id number] Amairani Hilton [id number] Amairani Hilton 03/07/2023 1 UMR [id number] Amairani Hilton [id number] Amairani Hilton Notes Date Note Type Note Provider Name and Address Organization Details Recorded Time 08/21/2022 text/html . Patient is a 52-year-old female diabetic who returns the office for follow-up on a wound to the plantar 2nd toe. Patient states overall she has continued wound care and states the area is completely healed. Patient denies any further signs of infection or wounds. Patient denies any other complaints. Serafin Hamilton DPM [address], [facility] [address], [place], [address], [employer] 08/21/2022 17:02:27 09/25/2022 text/html 52 yo female com es in for follow up in management of uncontrolled type 2 DM (A1C of 9.4%), mixed dyslipidemia. last seen in May at that time we had patient uptitrate metformin to 1000 mg po twice daily as her renal function is in range (will address proteinuria with kerendia as noted below)- continued farxiga and glimepiride scale. She is tolerating her therapy well. Her sugars are running higher over 180 mg/dL - no hypoglycemia She was on ozempic before in the past and she had issues with diarrhea. We did trial patient on mounjaro and this made her have a lot of bowel issues so she i snot taking GLP1 agonist therapy. we trialed on kerendia and tolerating well. Recent microalbumin revealed improvement labs from 07/17/22:a1c 9.4%TSH of 3.580 uIU/mlFT4 of 2.16 ng/dLvit D 34 ng/mLglucose 207 mg/dLCr normalLFT nuftek696/244/41/45H /H 14.8/46.9microalbumi n <6 ug/mg Elio Gibson MD [address], [facility] [address], [place], [address], [employer] 09/25/2022 12:51:50 09/26/2022 text/html AMAIRANI WAS SE EN IN THE OFFICE TODAY FOR COLON EVALUATION PT HAS A HX/O IBD-UC X 4. YRS . HER LAST COLON WAS 2021. TODAY PT REPORTS THAT SHE IS DOING WELL AND NEEDS TO ESTABLISH CARE . Gladis Nguyễn MD [address] [facility] [address], [place], [address], [facility] [employer] [facility] 09/26/2022 16:06:45 11/20/2022 text/html OV 09/22/2019:He re to establish carePast Hx:HTNHLDDMIIHypothy roidismUCReviewed social family and surgical historyHere as she wants to discuss the above, she also has had a cough, dry, since 'months' but much better nowNo new labs OV 11/12/2019:ACV:URI sxFor the past 2 days or so, runny nose, green phlegm and some sinus pressure and congestionAlso has R jaw pain at the point of her R wisdom tooth that is 'broken'No chest pain, no SOB, No fevers or chills, No N/V or diarrheaNo blood in sputum, no ear acheNo body aches or fatigue OV 11/17/2019:Here for her routine aptHere to discuss her labs and discuss about getting on ozempicShe is also to get surgery for her herniaShe is doing well otherwise, has had her wisdom tooth removed and now is doing much betterOV 03/02/2020:Here for her routine aptShe feels Alejandro did do the labs and is now s/p hernia surgery OV 06/30/2020:Here for her routine aptShe is feeling anxious as her has had cardiac issuesShe is otherwise doing Alejandro did see Dr Woodard and has had her kidney stone issues resolved nowShe is denies any suicidal or homicidal ideation or attempts OV 10/27/2020:Here for her routine aptShe is doing Alejandro did do the labs on 10/25/2020 OV 11/24/2020:Here to discuss her anxiety medMary Alice feels that this has helped herWants to renew theseNot suicidal or homicidalAlso c/o rash L axilla from shavingOV 01/19/2021:Here for her routine aptShe did the labs on 01/19/2021he feels wellOV 06/06/2021:Here for her routine aptShe is doing Kamilahelsy has done her labsOV 07/11/2021:Here for her one month f/uFeels Alejandro didOV 10/10/2021:Here for her f/u apt, she is doing well, she did do the labs today OV 07/17/2022:Here for her f/u apt, she is doing well today OV 11/20/2022: Here for her routine apt, she feels well today Cameron Romero MD [address], [address], [place], [address], [place] [facility] [employer] 11/20/2022 17:58:50 03/07/2023 text/html OV 09/22/2019:He re to establish carePast Hx:HTNHLDDMIIHypothy roidismUCReviewed social family and surgical historyHere as she wants to discuss the above, she also has had a cough, dry, since 'months' but much better nowNo new labs OV 11/12/2019:ACV:URI sxFor the past 2 days or so, runny nose, green phlegm and some sinus pressure and congestionAlso has R jaw pain at the point of her R wisdom tooth that is 'broken'No chest pain, no SOB, No fevers or chills, No N/V or diarrheaNo blood in sputum, no ear acheNo body aches or fatigue OV 11/17/2019:Here for her routine aptHere to discuss her labs and discuss about getting on ozempicShe is also to get surgery for her herniaShe is doing well otherwise, has had her wisdom tooth removed and now is doing much betterOV 03/02/2020:Here for her routine aptShe russ Allen did do the labs and is now s/p hernia surgery OV 06/30/2020:Here for her routine aptShe is feeling anxious as her has had cardiac issuesShe is otherwise doing Alejandro did see Dr Woodard and has had her kidney stone issues resolved nowShe is denies any suicidal or homicidal ideation or attempts OV 10/27/2020:Here for her routine aptShe is doing Alejandro did do the labs on 10/25/2020 OV 11/24/2020:Here to discuss her anxiety medsShe feels that this has helped herWants to renew theseNot suicidal or homicidalAlso c/o rash L axilla from shavingOV 01/19/2021:Here for her routine aptShe did the labs on 01/19/2021elsy feels wellOV 06/06/2021:Here for her routine aptShe is doing Alejandro has done her labsOV 07/11/2021:Here for her one month f/uFeels Alejandro didOV 10/10/2021:Here for her f/u apt, she is doing well, she did do the labs today OV 07/17/2022:Here for her f/u apt, she is doing well today OV 11/20/2022: Here for her routine apt, she feels well today OV 03/07/2023: Here for her f/u apt, she is doing well today, she has not got her meds and wants some refills, also needs a referral to endocrine as Dr Gibson has left Cameron Romero MD [address] [place] [address], [facility] [address], [place], [address], [place] [facility] 03/07/2023 18:11:40 OBGyn Episode No OBEpisode recorded.
--- OUTSIDE RECORDS SUMMARY | 2024-03-24 14:25 | XMS_ITS | Referral Summary ---
Author Organization [facility] Address [address] [facility] [place] [address] Care Team Providers Care Kennel Technician Name Role Phone Patrick Romero MD Primary Care Provider Source Comments [facility],non-[facility] Affiliates and Associated Physician Practices is amultiple site organization consisting of ambulatory clinics and hospital sitesin [place], [place], [place] and [place]. This disclosure is being madepursuant to the Care Everywhere program and may not contain all information available regarding this patient. Last updated 17.[facility] Social History Tobacco Use Types Packs/Day Years Used Date Smoking Tobacco: Never Assessed Sex and Gender Information Value Date Recorded Sex Assigned at Not on file Gender Identity Not on file Sexual Orientation Not on file Plan of Treatment Not on file Care Teams Kennel Technician Relationship Specialty Start Date End Date Patrick Romero MD [address] [facility] [address] [place] [phone] PCP - General 06/08/20
== END 2024-03-24 13:34 | disposition home or self-care (01) ==
PROVIDERS: PCP Family Medicine; Visit Provider Nurse Practitioner Family
DX: I73.9 Peripheral vascular disease, unspecified (principal)
CPT/HCPCS: 93922

== ENCOUNTER 2024-03-30 06:32 | Outpatient (CLI) | payer OTHER, SELFPAY ==
--- NOTE | ~2024-03-30 | CT_ITS ---
Non-contrast CT scan of the Abdomen and Pelvis Clinical indication: Kidney stone Technique: 2.5 mm axial scans were obtained through the abdomen and pelvis without intravenous or or al contrast. Dose reduction technique was used on this scan by utilizing automated exposure control a nd iterative reconstruction technique. The dose-length product (DLP) was 758.34 mGy-cm. COMPARISON: 04/26/2020 Findings: Images through the lung bases reveal no abnormalities. There is no evidence of renal or ureteral calculi. The kidneys and the ureters are nondilated. The liver, spleen, pancreas, and adrenals appear normal. Multiple gallstones are present. There is no aortic aneurysm. There is no evidence of bowel obstruction. Images through the pelvis were performed. There is no evidence of ascites or lymphadenopathy. Urinary bladder unremarkable. Status post hysterectomy. No pelvic mass. Impression: No renal, ureteral, or bladder stone. No hydronephrosis. Cholelithiasis. Reviewed, dictated and finalized at [facility]. ER PROCESS HAND Impression: No renal, ureteral, or bladder stone. No hydronephrosis. Cholelithiasis.
--- OUTSIDE RECORDS SUMMARY | 2024-03-30 06:36 | XMS_ITS | Clinical Summary ---
Author Organization [facility] Address [address] [place] [address] Care Team Providers Care Technical Editor Name Role Phone Patrick Romero MD Primary Care Provider [phone] Social History Tobacco Use Types Packs/Day Years [...] patient's age to complete this topic [place] [address] [address] [address] [place] Care Teams Technical Editor Relationship Specialty [place] [address] [place] [address], [address] [place] [address] PCP - General Internal Medicine 03/22/22
--- OUTSIDE RECORDS SUMMARY | 2024-03-30 06:36 | XMS_ITS | Referral Summary ---
Author Organization [facility] Address [address] [facility] [place] [address] Care Team Providers Care Lunch Truck Driver Name Role Phone Patrick Romero MD Primary Care Provider Source Comments [facility],non-[facility] Affiliates and Associated Physician Practices is amultiple site organization consisting of ambulatory clinics and hospital sitesin [place], [place], [place] and [place]. This disclosure is being madepursuant to the Care Everywhere program and may not contain all information available regarding this patient. Last updated 17.[facility] Social History Tobacco Use Types Packs/Day Years Used Date Smoking Tobacco: Never Assessed Sex and Gender Information Value Date Recorded Sex Assigned at Not on file Gender Identity Not on file Sexual Orientation Not on file Plan of Treatment Not on file Care Teams Lunch Truck Driver Relationship Specialty Start Date End Date Patrick Romero MD [address] [facility] [address] [place] [phone] PCP - General 06/08/20
--- OUTSIDE RECORDS SUMMARY | 2024-03-30 06:36 | XMS_ITS | Patient Health Summary ---
Author Organization [facility] Address [address] [place] [place] [address] Care Team Providers Care Press Catcher Name Role Phone Patrick Romero MD Primary Care Provider Note from [facility],non-owned Affiliates and Associated Physician Practices is amultiple site organization consisting of ambulatory clinics and hospital sitesin [place], [place], [place] and [place]. This disclosure is being madepursuant to the Care Everywhere program and may not contain all information available regarding this patient. Last updated 17.[facility] Social History Tobacco Use Types Packs/Day Years Used Date Smoking Tobacco: Never Assessed Sex and Gender Information Value Date Recorded Sex Assigned at Not on file Gender Identity Not on file Sexual Orientation Not on file Care Teams Press Catcher Relationship Specialty Start Date End Date Patrick Romero MD [address] [facility] [address] [place] [address] PCP - General 06/08/20
--- OUTSIDE RECORDS SUMMARY | 2024-03-30 06:36 | XMS_ITS | Clinical Summary ---
Author Organization [facility] Address [address] [facility] [place] [address] Care Team Providers Care Railroad Maintenance Clerk Name Role Phone Patrick Romero MD Primary Care Provider Source Comments [facility],non-owned Affiliates and Associated Physician Practices is amultiple site organization consisting of ambulatory clinics and hospital sitesin [place], [place], [place] and [place]. This disclosure is being madepursuant to the Care Everywhere program and may not contain all information available regarding this patient. Last updated 17.[facility] [place] Social History Tobacco Use Types Packs/Day Years [...] age to complete this topic Care Teams Railroad Maintenance Clerk Relationship Specialty Start Date End Date Patrick Romero MD [address] [address] PCP - General 06/08/20
--- OUTSIDE RECORDS SUMMARY | 2024-03-30 06:36 | XMS_ITS | Data Portability ---
Author Organization [place] [facility] [place], Main Office Address [address] [place] [address] Care Team Providers Care Line Analyst Name Role Phone CAMERON ROMERO Primary Care Provider [facility] - ENDOCRINOLOGY Endocrino logist MELL FUENTES Clinical Sciences Professor [phone] Assessment Encounter Date Assessment Date Assessment LastModified by Organization Details LastModified Time 08/21/2022 08/21/2022 This note is dictated and transcribed by [employer] Fluency Direct Software. Leather Craftsman variances may occur. Despite proofreading, typographical errors [...] 24.7 Gluc 242, ALT/AST 42/48 TG 309 [email or web address] Not available 11/20/2022 16:28:22 03/07/2023 03/07/2023 10/10/2021: A1C 8.7 TSH/FT4: WNL Vit D 40.4 CBC: WNL CMP: Gluc 210, T bili 1.40H Chol 129, TG 271, HDL 39, LDL 36 Urine micro alb 48.2H 07/17/2022: A1C 9.4 Gluc 207 TG 244 HCT 46.9 11/20/2022: A1C 9.9 Urine micro alb 24.7 Gluc 242, ALT/AST 42/48 TG 309 [email or web address] Not available 03/07/2023 17:51:37 Plan of Treatment Reminders Order Date Submit Date Provider Last Modified By Organization Details Last Modified Time Details Appointments None recorded. Lab lipid panel, serum [email or web address] (Lab), [address] [place], [address], 4 08:45:03 CMP, serum or plasma [address] (Lab), [address] [place], [address], 4 08:45:03 CBC w/ auto diff [address] (Lab), [address] [place], [address], 4 09:01:50 TSH, serum or plasma [address] (Lab), [address] [place], [address], 4 09:07:11 vitamin D, 25-hydroxy, total, serum 2023 024 [email or web address] [facility] (Lab), [address] [place], [address], 4 16:55:35 glycohemogl obin, total, blood [address] (Lab), [address] [place], [address], 4 09:38:39 microalbumi n, urine 2023 024 [email or web address] [facility] (Lab), [address] [place], [address], 4 09:01:51 lipid panel, serum 2022 023 [facility] (Lab), [address] [place], [address], 3 08:33:16 CMP, serum or plasma 2022 023 [facility] (Lab), [address] [place], [address], 3 08:33:17 CBC w/ auto diff 2022 023 [facility] (Lab), [address] [place], [address], 3 08:33:16 TSH, serum or plasma 2022 023 [facility] (Lab), [address] [place], [address], 3 08:33:18 vitamin D, 25-hydroxy, total, serum 2022 023 [email or web address] [facility] (Lab), [address] [place], [address], 3 13:55:17 glycohemogl obin, total, blood 2022 023 [facility] (Lab), [address] [place], [address], 3 08:33:18 microalbumi n, urine 2022 023 [facility] (Lab), [address] [place], [address], 3 08:33:17 Referral nephrologis t referral 2023 024 [email or web address] Mingo Díaz MD (Nephrology, [address] [facility], [address], [place], [address], 4 09:32:27 cardiologis t referral 2023 024 [email or web address] 6 Gallo Johnson MD, [address] [facility], [address], [place], [address], 4 09:32:26 diabetic ophthalmolo gy referral 2023 024 [email or web address] Aundrea Hodges MD, [address], [place], [address], 4 09:32:25 family services assistant referral 2023 024 [email or web address] 6 Serafin Hamilton DPM, [address] [facility], [address], [place], [address], 4 10:27:44 endocrinolo gy referral 2023 024 [email or web address] 6 Mariano Nix MD, [address], [place], [address], 4 08:34:49 gastroenter ologist referral 2023 024 [email or web address] 6 Gladis Nguyễn MD, [address] [facility], [address], [place], [address], 4 09:32:27 nephrologis t referral 2022 023 [email or web address] 6 Delano Renee MD, [address] [facility], [place], [address], 4 08:12:33 cardiologis t referral 2022 023 [email or web address] 6 Gallo Johnson MD, [address] [facility], [address], [place], [address], 4 09:00:17 diabetic ophthalmolo gy referral 2022 023 [email or web address] 6 Aundrea Hodges MD, [address], [place], [address], 4 08:12:31 family services assistant referral 2022 023 [email or web address] 6 Serafin Hamilton DPM, [address] [facility], [address], [place], [address], 4 11:33:33 gastroenter ologist referral 2022 023 [email or web address] 6 Gladis Nguyễn MD, [address] [facility], [address], [place], [address], 4 08:12:32 Procedures None recorded. Surgeries None recorded. Imaging DEXA, axial skeleton 2023 024 [email or web address] 6 [facility] ([facility]), [address] [place], [address], 4 09:32:01 bone density 2023 024 [email or web address] 6 [facility] ([facility]), [address] [place], [address], 4 09:32:01 MAMMO, screening, digital, bilateral 2023 024 [email or web address] 6 [facility] (Imaging), [address] [place], [address], 4 08:20:03 US, liver 2023 024 [email or web address] [facility] ([facility]), [address] [place], [address], 4 11:20:12 DEXA, axial skeleton 2022 023 [email or web address] 6 [facility] ([facility]), [address] [place], [address], 4 08:47:13 bone density 2022 024 [email or web address] 6 [facility] ([facility]), [address] [place], [address], 5 08:32:52 MAMMO, screening, digital, bilateral 2022 023 [email or web address] [facility] (Imaging), [address] [place], [address], 4 17:21:53 US, liver [address] [facility] ([facility]), [address] [place], [address], 3 10:05:48 Medication Orders metformin ER 500 mg tablet,exte nded release 24 hr 2023 024 [facility], [address] [place] [address], [address], 4 17:58:49 levothyroxi ne 137 mcg tablet 2023 024 [facility], [address] [place] [address], [address], 4 17:58:50 Kerendia 10 mg tablet [email or web address] [facility], [address] [place] [address], [address], 3 09:58:10 metformin ER 500 mg tablet,exte nded release 24 hr 2022 023 [email or web address] [facility], [address] [place] [address], [address], 3 15:56:43 levothyroxi ne 137 mcg tablet 2022 023 [facility], [address] [place] [address], [address], 3 16:49:09 balsalazide 750 mg capsule 2022 023 [facility], [address] [place] [address], [address], 3 16:05:11 Ozempic 0.25 mg or 0.5 mg (2 mg/3 mL) subcutaneou s pen injector 2022 023 [facility], [address] [place] [address], [address], 11:08:31 Patient TargetsNo targets recorded. Patient Instructions Encounter Date Encounter Id Patient Instructions Last Modified By Organization Details Last Modified Time 09/26/2022 [id number] PT WITH HX/O IBD-UC. DOING WELL WITH BALSALAZIDE 750 MG , 3 TABS DAILY . CONTINUE SAME . F/U IN 6 MTHS . [email or web address] Not available 09/26/2022 16:06:06 11/20/2022 [id number] dual-energy x-ra y absorptiometry (dxa) test: about this test [email or web address] Not available 11/20/2022 16:47:01 Reason for Referral Diabetic Ophthalmology Refer ral for Type 2 diabetes mellitus without complication Referring Physician: Cameron Romero, Internal Medicine, Encounter Date: 11/20/2022 Dragline Mechanic Referral for Type 2 diabetes mellitus without complication Referring Physician: Cameron Romero, Internal Medicine, Encounter Date: 11/20/2022 Communications Field Technician Referral for Es sential hypertension Referring Physician: Cameron Romero, Internal Medicine, Encounter Date: 11/20/2022 Clinical Sciences Professor Referral for Liver enzymes level above reference range Referring Physician: Kassi Walter Medicine, Encounter Date: 11/20/2022 Biological Technical Officer Referral for Pr oteinuria Referring Physician: Kassi Walter Medicine, Encounter Date: 11/20/2022 Diabetic Ophthalmology Refer ral for Type 2 diabetes mellitus without complication Referring Physician: Cameron Romero Internal Medicine, Encounter Date: 03/07/2023 Dragline Mechanic Referral for Type 2 diabetes mellitus without complication Referring Physician: Cameron Romero Internal Medicine, Encounter Date: 03/07/2023 Communications Field Technician Referral for Es sential hypertension Referring Physician: Kassi Walter Medicine, Encounter Date: 03/07/2023 Clinical Sciences Professor Referral for Liver enzymes level above reference range Referring Physician: Cameron Romero Internal Medicine, Encounter Date: 03/07/2023 Biological Technical Officer Referral for Pr oteinuria Referring Physician: Kassi [...] 8.0 x10'3 /uL 4.2-10 .8 Not Available [facility] (Lab) [address] [place], [address], 11/20/2022 10:36:29 11/21/1911/20/2022 CBC/C OMPLE TE BLD COUNT W/DIF F red blood cells 5.10 x10'6 /uL 3.80-5 .20 Not Available [facility] (Lab) [address] [place], [address], 11/20/2022 10:36:29 11/21/19 23 11/20/2022 CBC/C OMPLE TE BLD COUNT W/DIF F hemoglobin 14.2 g/dL 12.0-1 5.6 Not Available [facility] (Lab) [address] [facility] [place], [address], 11/20/2022 10:36:29 11/21/19 23 11/20/2022 CBC/C OMPLE TE BLD COUNT W/DIF F hematocrit 44.4 % 35.7-4 5.7 Not Available [facility] (Lab) [address] [place], [address], 11/20/2022 10:36:29 11/21/19 23 11/20/2022 CBC/C OMPLE TE BLD COUNT W/DIF F mean red cell volume 87.1 fL 82.0-9 9.0 Not Available [facility] (Lab) [address] [place], [address], 11/20/2022 10:36:29 11/21/19 23 11/20/2022 CBC/C OMPLE TE BLD COUNT W/DIF F mean red cell hemoglobin 27.8 pg 27.0-3 3.0 Not Available [facility] (Lab) [address] [place], [address], 11/20/2022 10:36:29 11/21/19 23 11/20/2022 CBC/C OMPLE TE BLD COUNT W/DIF F mean RBC HGB concentratio n 32.0 g/dL 31.0-3 6.0 Not Available [facility] (Lab) [address] [place], [address], 11/20/2022 10:36:29 11/21/19 23 11/20/2022 CBC/C OMPLE TE BLD COUNT W/DIF F red cell distribution width 14.2 % 11.8-1 5.5 Not Available [facility] (Lab) [address] [place], [address], 11/20/2022 10:36:29 11/21/19 23 11/20/2022 CBC/C OMPLE TE BLD COUNT W/DIF F platelets 269 x10'3 /uL 150-40 0 Not Available [facility] (Lab) [address] [place], [address], 11/20/2022 10:36:29 11/21/1911/20/2022 CBC/C OMPLE TE BLD COUNT W/DIF F mean platelet volume 11.6 fL 9.0-12 .4 Not Available [facility] (Lab) [address] [place], [address], 11/20/2022 10:36:29 11/21/1911/20/2022 CBC/C OMPLE TE BLD COUNT W/DIF F neutrophils 65.0 % 39.0-7 2.0 Not Available [facility] (Lab) [address] [place], [address], 11/20/2022 10:36:29 11/21/19 23 11/20/2022 CBC/C OMPLE TE BLD COUNT W/DIF F lymphocytes 24.7 % 16.0-4 7.0 Not Available [facility] (Lab) [address] [place], [address], 11/20/2022 10:36:29 11/21/19 23 11/20/2022 CBC/C OMPLE TE BLD COUNT W/DIF F monocytes 5.8 % 5.0-12 .0 Not Available [facility] (Lab) [address] [place], [address], 11/20/2022 10:36:29 11/21/19 23 11/20/2022 CBC/C OMPLE TE BLD COUNT W/DIF F eosinophils 2.3 % 1.0-7. 0 Not Available [facility] (Lab) [address] [place], [address], 11/20/2022 10:36:29 11/21/19 23 11/20/2022 CBC/C OMPLE TE BLD COUNT W/DIF F basophils 0.9 % 0.0-2. 0 Not Available [facility] (Lab) [address] [place], [address], 11/20/2022 10:36:29 11/21/1911/20/2022 CBC/C OMPLE TE BLD COUNT W/DIF F immature granulocytes 1.3 % 0.00-0 .50 high Not Available [facility] (Lab) [address] [place], [address], 11/20/2022 10:36:29 11/21/1911/20/2022 CBC/C OMPLE TE BLD COUNT W/DIF F neutrophils, absolute count 5.21 x10'3 /uL 1.5-8. 0 Not Available [facility] (Lab) [address] [place], [address], 11/20/2022 10:36:29 11/21/19 23 11/20/2022 CBC/C OMPLE TE BLD COUNT W/DIF F lymphocytes, absolute count 1.97 x10'3 /uL 1.07-3 .43 Not Available [facility] (Lab) [address] [place], [address], 11/20/2022 10:36:29 11/21/19 23 11/20/2022 CBC/C OMPLE TE BLD COUNT W/DIF F monocytes, absolute count 0.46 x10'3 /uL 0.29-0 .99 Not Available [facility] (Lab) [address] [place], [address], 11/20/2022 10:36:29 11/21/19 23 11/20/2022 CBC/C OMPLE TE BLD COUNT W/DIF F eosinophils, absolute count 0.18 x10'3 /uL 0.02-0 .53 Not Available [facility] (Lab) [address] [place], [address], 11/20/2022 10:36:29 11/21/19 23 11/20/2022 CBC/C OMPLE TE BLD COUNT W/DIF F basophils, absolute count 0.07 x10'3 /uL 0.01-0 .08 Not Available [facility] (Lab) [address] [place], [address], 11/20/2022 10:36:29 11/21/19 23 11/20/2022 CBC/C OMPLE TE BLD COUNT W/DIF F immature granulocytes ,absolute 0.10 x10'3 /uL 0.00-0 .05 high Not Available [facility] (Lab) [address] [place], [address], 11/20/2022 10:36:29 11/21/19 23 11/20/2022 CBC/C OMPLE TE BLD COUNT W/DIF F nucleated red blood cells 0.0 % -0 Not Available [facility] (Lab) [address] [place], [address], 11/20/2022 10:36:29 11/21/1911/20/2022 CBC/C OMPLE TE BLD COUNT W/DIF F NRBC# 0.00 x10'3 /uL Not Available [facility] (Lab) [address] [place], [address], 11/20/2022 10:36:29 11/21/1911/20/2022 LIPID PANEL cholesterol 149 mg/dL 140-19 9 NIH SO NSUS RECOM MENDA TION FOR RO STERO L: ADULT CHILD LOW RISK: <200 <170 BORDE RLINE : <200- 239 ----- HIGH RISK: >240 >200 Not Available [facility] (Lab) [address] [place], [address], 11/20/2022 10:49:49 11/21/1911/20/2022 LIPID PANEL triglyceride s 309 mg/dL 0-150 high NIH SO NSUS REPOR T RECOM MENDA TION FOR TRIGL YCERI ADA: ADULT CHILD LOW RISK: <150 ----- BODER LINE: 150-1 99 ----- HIGH RISK: >200 ----- Not Available [facility] (Lab) [address] [place], [address], 11/20/2022 10:49:49 11/21/1911/20/2022 LIPID PANEL HDL cholesterol 42 mg/dL 40- Not Available [facility] (Lab) [address] [place], [address], 11/20/2022 10:49:49 11/21/1911/20/2022 LIPID PANEL LDL cholesterol, [...] WILL NOT BE REPOR WILLIAM. Not Available [facility] (Lab) [address] [place], [address], 11/20/2022 10:49:49 11/21/1911/20/2022 COMPR EHENS OLEGARIO METAB OLIC PANEL sodium 137 mmol/ L 137-14 5 Not Available [facility] (Lab) [address] [place], [address], 11/20/2022 10:50:00 11/21/1911/20/2022 COMPR EHENS OLEGARIO METAB OLIC PANEL potassium 4.5 mmol/ L 3.5-5. 1 Not Available [facility] (Lab) [address] [place], [address], 11/20/2022 10:50:00 11/21/1911/20/2022 COMPR EHENS OLEGARIO METAB OLIC PANEL chloride 98 mmol/ L 98-107 Not Available [facility] (Lab) [address] [place], [address], 11/20/2022 10:50:00 11/21/1911/20/2022 COMPR EHENS OLEGARIO METAB OLIC PANEL carbon dioxide 29 mmol/ L 22-30 Not Available [facility] (Lab) [address] [place], [address], 11/20/2022 10:50:00 11/21/1911/20/2022 COMPR EHENS OLEGARIO METAB OLIC PANEL anion gap 14.5 mmol/ L 14-22 Not Available [facility] (Lab) [address] [place], [address], 11/20/2022 10:50:00 11/21/1911/20/2022 COMPR EHENS OLEGARIO METAB OLIC PANEL glucose 242 mg/dL 70-99 high Not Available [facility] (Lab) [address] [place], [address], 11/20/2022 10:50:00 11/21/1911/20/2022 COMPR EHENS OLEGARIO METAB OLIC PANEL BUN 14 mg/dL 8-19 Not Available [facility] (Lab) [address] [place], [address], 11/20/2022 10:50:00 11/21/19 23 11/20/2022 COMPR EHENS OLEGARIO METAB OLIC PANEL creatinine 0.51 mg/dL 0.66-1 .25 low Not Available [facility] (Lab) [address] [place], [address], 11/20/2022 10:50:00 11/21/1911/20/2022 COMPR EHENS OLEGARIO METAB OLIC PANEL GFR >60 Refer ence Range : [place] ge GFR Healt hy Adult : >60 [...] calcu lator is avail able on the [facility] websi te: [email or web address] :[email or web address] haider/pr ofess ional s/kdo qi/gf r_cal culat or Not Available [facility] (Lab) [address] [place], [address], 11/20/2022 10:50:00 11/21/1911/20/2022 COMPR EHENS OLEGARIO METAB OLIC PANEL alkaline phosphatase 76 U/L 38-126 Not Available [facility] (Lab) [address] [place], [address], 11/20/2022 10:50:00 11/21/19 23 11/20/2022 COMPR EHENS OLEGARIO METAB OLIC PANEL alanine aminotransfe rase 42 U/L 0-35 high Not Available [facility] (Lab) [address] [place], [address], 11/20/2022 10:50:00 11/21/1911/20/2022 COMPR EHENS OLEGARIO METAB OLIC PANEL aspartate aminotransfe rase 48 U/L 15-37 high Not Available [facility] (Lab) [address] [place], [address], 11/20/2022 10:50:00 11/21/1911/20/2022 COMPR EHENS OLEGARIO METAB OLIC PANEL bilirubin, total 1.20 mg/dL 0.20-1 .30 Not Available [facility] (Lab) [address] [place], [address], 11/20/2022 10:50:00 11/21/1911/20/2022 COMPR EHENS OLEGARIO METAB OLIC PANEL calcium 9.7 mg/dL 8.4-10 .2 Not Available [facility] (Lab) [address] [place], [address], 11/20/2022 10:50:00 11/21/1911/20/2022 COMPR EHENS OLEGARIO METAB OLIC PANEL total protein 7.0 g/dL 6.3-8. 2 Not Available [facility] (Lab) [address] [place], [address], 11/20/2022 10:50:00 11/21/1911/20/2022 COMPR EHENS OLEGARIO METAB OLIC PANEL albumin 4.3 g/dL 3.4-5. 0 Not Available [facility] (Lab) [address] [place], [address], 11/20/2022 10:50:00 11/21/1911/20/2022 COMPR EHENS OLEGARIO METAB OLIC PANEL globulin 2.7 g/dL 2.6-4. 2 Not Available [facility] (Lab) [address] [place], [address], 11/20/2022 10:50:00 11/21/19 23 11/20/2022 COMPR EHENS OLEGARIO METAB OLIC PANEL A/G ratio 1.6 ratio 1.0-2. 0 Not Available [facility] (Lab) [address] [place], [address], 11/20/2022 10:50:00 11/21/19 23 11/20/2022 MICRO ALBUM IN RANDO M URINE microalbumin , urine 24.7 mg/L 0.0-16 .6 high Not Available [facility] (Lab) [address] [place], [address], 11/20/2022 11:04:24 11/21/1911/20/2022 VITAM IN D 25-HY DROXY [id number] 41.4 NG/mL 30-100 Vitam in D Statu s: Defic ient: <20 ng/mL Insuf ficie nt: 20-29 ng/mL Suffi cient : 30-10 0 ng/mL Not Available [facility] (Lab) [address] [place], [address], 11/20/2022 11:11:48 11/21/1911/20/2022 TSH W/REF LO FT4 TSH with reflex free T4 3.740 uIU/m L 0.465- 4.680 Not Available [facility] (Lab) [address] [place], [address], 11/20/2022 11:16:36 11/21/1911/20/2022 HEMOG LOBIN A1C HA1C 9.9 % 4.0-6. 0 high Diabe austen Scree raghu Crite haleigh: <5.7% Consi stent with absen ce of diabe austen 5.7-6 .4% Consi stent with incre ased risk for diabe austen (pred iabet es) >OR=6 .5% Consi stent with diabe austen REFER ENCE: Diabe austen Care 2016, 39(Robert ppl.1 ):s13 -s22 Not Available [facility] (Lab) [address], [place], [address], 11/20/2022 14:01:43 08/22/19 23 05/15/2021 colon oscop y proce dure (PROC ) No observ ation record ed. BARCODE Not Available 2022 15:44:36 12/05/19 23 12/04/2022 US, abdom en, limit ed [facility] [address] [facility] [address], [place] [address] Patien t Name: PINO CARRAJ Access ion #: [id number] Sex: F : 1969 4 Dictat ed By: Akshat Turcois Attend ing Physic panda: , Chantell glass [...] sugges tive of hepati c Page 1 [facility] [address] [place] [address] Patien t Name: JUANPABLOAJ ZAYAS Access ion #: [id number] Sex: F : 1969 4 Dictat [...] Date/T bobbi: 2022 8:57 AM Page 2 [facility] (Imaging) [address] [place], [address], 03/18/2023 11:30:08 12/05/19 23 12/04/2022 US, liver No observ ation record ed. [email or web address] [facility] [address] [place], [address], 03/18/2023 11:30:09 Result Notes None recorded. Problems Name Problem SNOMED Code Status Onset Date Resolution Date Notes Provider Name and Address Organization Details Recorded Time Mixed hyperlipid emia 992218434 Active 2022 Not Available [facility] 4 11:50:43 Proteinuri a 22344690 Active 2022 Not Available [facility] 4 11:50:43 Acute urinary tract infection 238078445 Active 2022 Not Available [facility] 4 11:50:44 Generalize d anxiety disorder 61207118 Active 2022 Not Available [facility] 4 11:50:43 Essential hypertensi on 22359695 Active 2022 Not Available [facility] 4 11:50:44 Hernia of anterior abdominal wall 241442624 Active 2022 Not Available [facility] 4 11:50:44 Gastroesop hageal reflux disease without esophagiti s 844075478 Active 2022 Not Available [facility] 4 11:50:43 Morbid obesity 340595092 Active 2022 Not Available [facility] 4 11:50:43 Skin ulcer of toe due to diabetes mellitus type 2 0474068700518 9102 Active 2022 Not Available [facility] 4 11:50:43 Upper respirator y infection 78401193 Active 2023 FERNANDEZ Vargas, [place] [facility] 4 16:07:26 Cellulitis of toe of left foot 2929538056948 9105 Active 2021 Not Available [facility] 4 11:50:43 Cellulitis of toe of right foot 0413937230752 9106 Active 2021 Not Available [facility] 4 11:50:43 Dysfunctio n of posterior tibial tendon 7828265758585 05 Active 2017 Not Available [facility] 4 11:50:43 Leukocytos is 044802609 Active 2022 Not Available [facility] 4 11:50:43 Benign essential hypertensi on 1893672 Active Not Available [facility] 4 11:50:43 Open wound of ankle 854997644 Active 2021 Not Available [facility] 4 11:50:43 Open wound of ankle 164986674 Active 2021 Not Available [facility] 4 11:50:43 Knee joint effusion 874311021 Active Not Available [facility] 4 11:50:43 Tibialis posterior tendinitis 817257333 Active 2017 Not Available [facility] 4 11:50:43 Plantar fasciitis 268831728 Active Not Available [facility] 4 11:50:43 Neuropathy due to diabetes mellitus 604259680 Active 2017 Not Available [facility] 4 11:50:43 Congenital pes planus 41328419 Active 2017 Not Available [facility] 4 11:50:43 Ulcer of toe 325956012 Active 2019 Not Available [facility] 4 11:50:43 Ulcer of heel 794019227 Active 2021 Not Available [facility] 4 11:50:43 Ulcer of heel 520092040 Active 2021 Not Available [facility] 4 11:50:43 Pain of ear 344669787 Active 2021 Not Available [facility] 4 11:50:43 Ulcer of big toe 591091136 Active 2021 Not Available [facility] 4 11:50:43 Knee pain Active Not Available [facility] 4 11:50:43 Type 2 diabetes mellitus without complicati on 577968558 Active Not Available [facility] 4 11:50:43 Pain in left foot 7182653827001 07 Active 2021 Not Available [facility] 4 11:50:43 Pain of toe of right foot 9405407853095 01 Active 2021 Not Available [facility] 4 11:50:43 Vitamin D deficiency 44314411 Active Not Available [facility] 4 11:50:43 Hyperurice luan 56793336 Active 2018 Not Available [facility] 4 11:50:43 Sinusitis 83254821 Active Not Available [facility] 4 11:50:43 Dyslipidem ia 125954471 Active 2021 Not Available [facility] 4 11:50:44 Arthritis 9377261 Active 2017 Not Available [facility] 4 11:50:44 Hypertensi ve disorder 57412745 Active 2017 Not Available [facility] 4 11:50:44 Neuropathy 506965632 Active 2021 Not Available [facility] 4 11:50:44 Paronychia of toe 128965285 Active 2018 Not Available [facility] 4 11:50:44 Osteoarthr itis 431209508 Active Not Available [facility] 4 11:50:44 Dizziness 905064575 Active Not Available [facility] 4 11:50:44 Hypothyroi dism 70719854 Active Not Available [facility] 4 11:50:44 Obesity 400600200 Active Not Available [facility] 4 11:50:44 Diabetic peripheral neuropathy 656789336 Active 2021 Not Available [facility] 4 11:50:44 Uncontroll ed type 2 diabetes mellitus 323081920 Active 2021 Not Available [facility] 4 11:50:44 Foot pain 61272070 Active 2018 Not Available [facility] 4 11:50:44 Cough 84406805 Active 2021 Not Available [facility] 4 11:50:44 Hyperlipid emia 19191389 Active Not Available [facility] 4 11:50:44 Vitamin B12 deficiency (non anemic) 32204187 Active 2021 Not Available [facility] 4 11:50:44 Hypertensi ve heart disease 46266839 Active Not Available [facility] 4 11:50:44 Ulcerative colitis 50323617 Active 2018 Not Available [facility] 4 11:50:44 Hypercalce luan 56260145 Active Not Available [facility] 4 11:50:44 Increased liver function 87295000 Active Not Available [facility] 4 11:50:44 Eustachian tube disorder 24869452 Active Not Available [facility] 4 11:50:44 Liver enzymes level above reference range 889746635 Active 2022 Not Available [facility] 4 11:50:44 Diabetes mellitus 54391655 Active 2017 Not Available [facility] 4 11:50:44 Obstructiv e sleep apnea syndrome 63054700 Active Not Available [facility] 4 11:50:44 Weight gain 2435222 Active 2021 Not Available [facility] 4 11:50:44 Gout 25602453 Active 2017 Not Available [facility] 4 11:50:44 Notes:ear problems, thyroid disease, balance problems, swollen or painful joints, wear glasses, difficulty hearing, ringing in ears Some problems listed in Document: #[id number] could not be added to this patient's chart. Please review this document and add these problems to the patient's chart manually as needed. Problem Notes Documentation Provider Name and Address Organization Details Recorded Time Endocrinology Consult Note : [facility] [address], [facility] [id number] BERNARD (id #[id number], : 1970) Documents sent [...] received this fax in error, please visit [email or web address] for iPhone and Android.[employer]/[email or web address] to notify the sender and confirm that the information will be destroyed. If you do not have internet access, please call to notify the sender and confirm that the information will be destroyed. Thank you for your attention and cooperation. [ID:[id number]][facility] [address] [place] [address] , Date: 09/25/2022RE: Amairani Hilton, : 1970, [...] FU ON LABS 09/25/2022 - 09:00AM - [facility] Endo Laverne Peterson Problems:Reviewed Problems Hypothyroidism Diabetes [...] Source Acidophilus1 time a day, start started MIGRATION.[id number] allopurinoL 100 mg tabletTAKE 1 TABLET BY MOUTH EVERY DAY09/06/22 filled surescripts aspirin 81 mg tablet,delayed releaseTake 1 tablet every day by oral route., start started MIGRATION.4894102990 atorvastatin 40 mg tabletTAKE 1 TABLET BY MOUTH EVERY DAY06/15/22 filled surescripts balsalazide 750 mg capsuleTAKE 3 CAPSULES BY MOUTH DAILY09/21/22 prescribed Cameron Romero MD BD Insulin Syringe Ultra-Fine 1 mL 31 gauge x 06/26 USE INJECT B12 ONCE HUARMH73/23/22 filled surescripts busPIRone 10 mg tabletTAKE 1 TABLET BY MOUTH TWICE A DAY *NOTIFY MD OF ANY CHANGE IN MOOD/BEHAVIOR*08/07/22 filled surescripts ergocalciferol (vitamin D2) 1,250 mcg (50,000 unit) capsuleTAKE 1 CAPSULE BY MOUTH ONCE [id number]/07/23 renewed Cameron Romero MD Farxiga 5 mg tabletTAKE 1 TABLET BY MOUTH EVERY DAY06/10/22 filled surescripts fenofibrate 54 mg tabletTake 1 tablet(s) every day by oral route for 90 days.11/23/21 filled MIGRATION.0026261122 fluticasone propionate 50 mcg/actuation nasal spray,suspensionSHAKE LIQUID AND USE 2 SPRAYS IN EACH NOSTRIL DAILY10/27/20 filled MIGRATION.0687544244 gabapentin 300 mg capsuleTAKE 1 CAPSULE BY MOUTH TWICE A DAY09/04/22 filled surescripts glimepiride 2 mg tabletTAKE 2 TABLETS BY MOUTH TWICE A DAY BEFORE MEALS07/01/22 filled surescripts icosapent ethyL 1 gram capsuleTAKE 2 CAPSULES BY MOUTH TWICE A DAY06/06/22 filled surescripts Kerendia 10 mg tabletTAKE 1 TABLET BY MOUTH EVERY DAY IN THE PNLJSZA04/25/23 filled surescripts levothyroxine 137 mcg tabletTAKE 1 TABLET BY MOUTH EVERY DAY09/04/22 filled surescripts metFORMIN ER 500 mg tablet,extended release 24 hrTAKE 2 TABLETS BY MOUTH TWICE A DAY09/04/22 filled surescripts metoprolol succinate ER 50 mg tablet,extended release 24 hrTAKE 1 TABLET BY MOUTH EVERY DAY09/04/22 filled surescripts omeprazole 20 mg capsule,delayed releaseTAKE 1 CAPSULE BY MOUTH EVERY DAY TSNWLQ16/25/23 filled surescripts Ozempic 0.25 mg or 0.5 [...] tablet every day by oral route.10/27/20 filled MIGRATION.0254584206 Vitamin D Family History:Family History not reviewed [...] received?: High school graduateWhat is your occupation?: [employer] [facility] Health and TravelHave you recently traveled abroad?: [...] DirectiveDo you have a medical power of osteologist?: NoMarriage and SexualityWhat is your relationship status?: [...] ng/dLvit D 34 ng/mLglucose 207 mg/dLCr normalLFT /244/41/45H/H 14.8/46.9microalbumin <6 ug/mgReview of Systems:ROS as noted [...] food labels. Recommended patient to utilize the diabetesXifra [employer].com from the ADA website to help with [...] (3) 3 mL syringe Refills: 1 Pharmacy: [facility] [id number] 2. Dyslipidemia-Continue on statin therapy. Spent up [...] his/her PCP can refer patient to another sprayer automatic spray machine in the area. All questions /concerns answered and refills necessary at visit today.E78.5: Hyperlipidemia, unspecified Return to Office Gladis Nguyễn MD for New Patient 15 at [facility] General Surgery on 09/26/2022 at 02:15 PM Cameron Romero MD for Any 15 at [facility] Internal Med Jeff 15 on 10/23/2022 at 03:30 PM Not Available [facility] 09/25/2022 12:52:51 [address] [phone] BERNARD (id #[id number], : 1970) [facility] [address] [address] Encounter Summary - Progress Note Date Printed: [...] received this fax in error, please visit [email or web address] for iPhone and Android.[email or web address] [facility] [email or web address] to notify the sender and confirm that the information will be destroyed. If you do not have internet access, please call to notify the sender and confirm that the information will be destroyed. Thank you for your attention and cooperation. [ID:[id number]] Patient Amairani Hilton (52yo, F) #[id number] 1970 Patient Demographics: Address [address] [place] [address] Encounter Notes: Encounter Reason/Date Ulcerative Colitis 09/26/2022 - 02:15PM - [facility] General Surgery History of Present IllnessAMAIRANI WAS [...] DTRs 2+ bilaterally throughout. Coordination and Cerebellum: vudish-bo-beru intact and no tremor. Motor Strength normal facial right and left and normal right and left. Skin:Inspection and palpation: no rash, lesions, ulcer, induration, nodules, jaundice, or abnormal nevi and good turgor. Nails: normal. Back:Thoracolumbar Appearance: normal curvature. Assessment and Plan1. Ulcerative lwbtfjoF01.90: Ulcerative colitis, unspecified, without complications balsalazide 750 mg capsule -TAKE 3 CAPSULES BY MOUTH DAILY Qty: (270) capsule Refills: 1 Pharmacy: [facility] [id number] DiscussionDiscussion NotesPT WITH HX/O IBD-UC. DOING WELL WITH BALSALAZIDE 750 MG , 3 TABS DAILY . CONTINUE SAME . F/U IN 6 MTHS . Return to Office Cameron Romero MD for Any 15 at [facility] Internal Med Jeff 15 on 10/23/2022 at 03:30 PM Gladis Nguyễn MD for Established Patient 15 at [facility] General Surgery on 03/20/2023 at 02:30 PM Patient Medical History: Allergies List Reviewed Allergies IODINATED CONTRAST MEDIA Medications Reviewed Medications NameDate Source Acidophilus1 time a day, start started MIGRATION.5445696387 allopurinoL 100 mg tabletTAKE 1 TABLET BY MOUTH EVERY DAY09/06/22 filled surescripts aspirin 81 mg tablet,delayed releaseTake 1 tablet every day by oral route., start started MIGRATION.9847899772 atorvastatin 40 mg tabletTAKE 1 TABLET BY MOUTH EVERY DAY06/15/22 filled surescripts balsalazide 750 mg capsuleTAKE 3 CAPSULES BY MOUTH DAILY09/26/22 prescribed Gladis Nguyễn MD BD Insulin Syringe Ultra-Fine 1 mL 31 gauge x 5/16 USE INJECT B12 ONCE XJHBBE27/23/22 filled surescripts busPIRone 10 mg tabletTAKE 1 TABLET BY MOUTH TWICE A DAY *NOTIFY MD OF ANY CHANGE IN MOOD/BEHAVIOR*08/07/22 filled surescripts ergocalciferol (vitamin D2) 1,250 mcg (50,000 unit) capsuleTAKE 1 CAPSULE BY MOUTH ONCE OLHMQN16/07/23 renewed Cameron Romero MD Farxiga 5 mg tabletTAKE 1 TABLET BY MOUTH EVERY DAY06/10/22 filled surescripts fenofibrate 54 mg tabletTake 1 tablet(s) every day by oral route for 90 days.11/23/21 filled MIGRATION.2044871867 fluticasone propionate 50 mcg/actuation nasal spray,suspensionSHAKE LIQUID AND USE 2 SPRAYS IN EACH NOSTRIL DAILY10/27/20 filled MIGRATION.0057594692 gabapentin 300 mg capsuleTAKE 1 CAPSULE BY MOUTH TWICE A DAY09/04/22 filled surescripts glimepiride 2 mg tabletTAKE 2 TABLETS BY MOUTH TWICE A DAY BEFORE MEALS07/01/22 filled surescripts icosapent ethyL 1 gram capsuleTAKE 2 CAPSULES BY MOUTH TWICE A DAY06/06/22 filled surescripts Kerendia 10 mg tabletTAKE 1 TABLET BY MOUTH EVERY DAY IN THE JLPEGKC89/25/23 filled surescripts levothyroxine 137 mcg tabletTAKE 1 TABLET BY MOUTH EVERY DAY09/04/22 filled surescripts metFORMIN ER 500 mg tablet,extended release 24 hrTAKE 2 TABLETS BY MOUTH TWICE A DAY09/04/22 filled surescripts metoprolol succinate ER 50 mg tablet,extended release 24 hrTAKE 1 TABLET BY MOUTH EVERY DAY09/04/22 filled surescripts omeprazole 20 mg capsule,delayed releaseTAKE 1 CAPSULE BY MOUTH EVERY DAY JGKRVL95/25/23 filled surescripts Ozempic 0.25 mg or 0.5 [...] tablet every day by oral route.10/27/20 filled MIGRATION.4808993670 Vitamin D Family HistoryReviewed Family History Father [...] Vaccines Vaccine Type Date Amt. Route Site [facility] Lot # Mfr. Exp. 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 COVID-19, mRNA, LNP-S, PF, 100 mcg/0.5 mL dose (Moderna) 12/29/20 booster COVID-19 (SARS-COV-2) vaccine, unspecified 03/18/20 SHOT 2 pfizer COVID-19 (SARS-COV-2) vaccine, unspecified 02/26/20 shot 1 pfizer Diphtheria, Tetanus, Pertussis Tdap 09/22/19 0.5 mL Intramuscular Deltoid, Left [id number] Sanofi Pasteur 09/25/20 09/22/19 Influenza influenza, injectable, quadrivalent, preservative free 11/14/21 [facility] influenza, seasonal, injectable 12/15/20 influenza, high dose seasonal 11/11/13 Has received flu vaccine Electronically Signed by: GLADIS NGUYỄN MD(no signature on file) Not Available [facility] 09/26/2022 17:26:31 Procedures Surgical History Date Name Laterality Status Provider Name and Address Organization Details Recorded Time 07/28/19 Wound Care-Podiatry completed Serafin Hamilton DPM [address] [facility], [facility] [address], [place], [address], [place] [facility] 07/27/2022 11:03:45 11/23/19 Hernia Repair completed Not Available [facility] 2022 04:42:48 04/12/19 Colonoscopy completed Not Available [facility] 04/12/19 04:42:48 Kidney Stones completed [facility] 04/11/2022 04:42:48 Lithotripsy completed Not Available [facility] 04/11/2022 04:42:48 Hysterectomy, Partial completed Not Available [facility] 04/11/2022 04:42:48 [facility]iac Cath completed [facility] 04/11/2022 04:42:48 completed Not Available [facility] 0 04/11/2022 04:42:48 Imaging Results Imaging Date Name Status LastModified by Organiz ation Details LastModified Time 05/15/2021 colonoscopy procedure (PROC) completed BARCODE Information not available 08/21/2022 15:44:36 12/04/2022 US, abdomen, limited completed [id number] [facility] (Imaging) [address] [place], [address], 03/18/2023 11:30:08 12/04/2022 US, liver completed [email or web address] [facility] [address] [place], [address], 03/18/2023 11:30:09 Procedure Notes None recorded. Medical Equipment None Reported. Allergies Allergen ID Allergen Name Allergen Category Reaction Reaction Severity Criticality Documentation Date Start Date Code Code System Note Provider Name and Address Organization Details Recorded Time 8761 Iodinated contrast media (substanc e) medicatio n Not available Not available Not available 04/11/2022 40995 2003 SNOMED Not Available [facility] 3 05:06:33 Medications Name Sig Start Date [...] completed Not Available Not Available Not Available [facility] Ultra2 Meter test sugars twice daily before [...] Updated DateTime 3 165.1 cm 39.3 kg/m2 687973. 8 g 79 /min 14 /min 98 % 98 % 121 mm[Hg] 71 mm[Hg] Brit Baez [facility] 3 16:50:37 Date Recorded Body height Body mass index (BMI) Body weight Body temperature Respiratory rate Heart rate Systolic blood pressure Diastolic blood pressure Provider Name and Address Organization Details Last Updated DateTime 3 165.1 cm 41 kg/m2 351877. 44 g 97.9 [degF] 16 /min 64 /min 108 mm[Hg] 65 mm[Hg] Sydni Tao RN [facility] 3 10:46:55 Date Recorded Body height Body mass index (BMI) Body weight Heart rate Oxygen saturation Oxygen saturation in Arterial blood by Pulse oximetry Systolic blood pressure Diastolic blood pressure Provider Name and Address Organization Details Last Updated DateTime 3 165.1 cm 40.9 kg/m2 334880. 72 g 64 /min 98 % 98 % 108 mm[Hg] 65 mm[Hg] SHARON Crespo [facility] [employer] [facility] 3 15:14:16 Date Recorded Body height Body mass index (BMI) Body weight Body temperature Heart rate Systolic blood pressure Diastolic blood pressure Provider Name and Address Organization Details Last Updated DateTime 3 165.1 cm 41.3 kg/m2 852396. 91 g 97.7 [degF] 78 /min 130 mm[Hg] 66 mm[Hg] SH[facility]ON [facility] [place] [facility] 3 16:12:12 Date Recorded Body height Body mass index (BMI) Body weight Body temperature Heart rate Systolic blood pressure Diastolic blood pressure Provider Name and Address Organization Details Last Updated DateTime 4 165.1 cm 39.9 kg/m2 657532. 17 g 97.2 [degF] 78 /min 128 mm[Hg] 82 mm[Hg] SH[facility]ON [facility] [place] [facility] 4 17:47:57 Social History Question Answer Notes LastModified by Organizat ion Details LastModified Time Tobacco Smoking Status Never Smoker Not Available [facility] 04/11/2022 04:32:31 Do You Have An Advance Directive? No MIGRATION.36339 86822 Information not available 04/11/2022 What Is Your Level Of Alcohol Consumption? None MIGRATION.92344 78461 Information not available 04/11/2022 If You Are , What Was Your Level Of Alcohol Consumption Prior To ? None MIGRATION.82758 23199 Information not available 04/11/2022 What Is Your Level Of Caffeine Consumption? Moderate MIGRATION.03881 25044 Information not available 04/11/2022 In The 14 Days Before Symptom Onset, Have You Had Close Contact With A Laboratory-confir med COVID-19 While That Case Was Ill? No MIGRATION.48771 40055 Information not available 04/11/2022 In The 14 Days Before Symptom Onset, Have You Had Close Contact With A Person Who Is Under Investigation For COVID-19 While That Person Was Ill? No MIGRATION.71872 66368 Information not available 04/11/2022 What Type Of Diet Are You Following? REGULAR MIGRATION.22579 13695 Information not available 04/11/2022 What Is The Highest Grade Or Level Of School You Have Completed Or The Highest Degree You Have Received? WS15049-5 MIGRATION.86407 29060 Information not available 04/11/2022 What Is Your Occupation? [employer] MIGRATION.55013 64790 Information not available 04/11/2022 Have There Been Any Changes To Your Family Or Social Situation? No MIGRATION.39159 16491 Information not available 04/11/2022 What Is The Fluoride Status Of Your Home? Unknown MIGRATION.04290 04960 Information not available 04/11/2022 Are There Any Guns Present In Your Home? Yes MIGRATION.15041 48769 Information not available 04/11/2022 Do You Use Insect Repellent Routinely? Yes MIGRATION.26031 75508 Information not available 04/11/2022 Where Do You Live? [place]LevelHouse MIGRATION.07557 04181 Information not available 04/11/2022 Do You Have A Medical Power Of Mechanical Systems Control Engineer? No MIGRATION.87766 23922 Information not available 04/11/2022 What Was The Date Of Your Most Recent Tobacco Screening? 03/07/2023 [email or web address] Information not available 03/07/2023 Do You Have Any Pets? Yes MIGRATION.98883 63957 Information not available 04/11/2022 What Is Your Relationship Status? MIGRATION.67945 79141 Information not available 04/11/2022 Do You Use Your Seat Belt Or Car Seat Routinely? Yes MIGRATION.71306 32111 Information not available 04/11/2022 Do You Have Smoke And Carbon Monoxide Detectors In Your Home? Yes MIGRATION.51322 28202 Information not available 04/11/2022 Are You Passively Exposed To Smoke? No MIGRATION.72494 54947 Information not available 04/11/2022 Are There Any Smokers In Your House? No MIGRATION.87398 36682 Information not available 04/11/2022 What Types Of Sporting Activities Do You Participate In? None MIGRATION.51533 11836 Information not available 04/11/2022 Do You Feel Stressed (tense, Restless, Nervous, Or Anxious, Or Unable To Sleep At Night)? [id number] MIGRATION.95931 60346 Information not available 04/11/2022 Do You Use Any Illicit Or Recreational Drugs? No MIGRATION.01114 41453 Information not available 04/11/2022 Do You Use Sunscreen Routinely? Yes MIGRATION.23950 23530 Information not available 04/11/2022 Has Tobacco Cessation Counseling Been Provided? No N/A MIGRATION.65501 01918 Information not available 04/11/2022 Have You Recently Traveled Abroad? No MIGRATION.23921 67791 Information not available 04/11/2022 Do You Have Any Dietary Restrictions? No MIGRATION.05500 32700 Information not available 04/11/2022 Do You Or Have You Ever Used Any Other Forms Of Tobacco Or Nicotine? No MIGRATION.51165 27792 Information not available 04/11/2022 Sex: Female Functional Status None recorded. Mental Status None recorded. Family History Relationship Description Onset Age of this Age Resolved Age Notes LastModified by Organization Details LastModified Time Father Malignant tumor of lung MIGRATION.319 [id number] Not available 04/11/2022 04:42:53 Father Cerebrovascu lar accident MIGRATION.142 0495832 Not available 04/11/2022 04:42:54 Maternal Grandmother Heart disease MIGRATION.626 5826207 Not available 04/11/2022 04:42:54 Paternal Grandmother Heart disease MIGRATION.613 2219298 Not available 04/11/2022 04:42:54 Mother Chronic obstructive pulmonary disease MIGRATION.258 2877935 Not available 04/11/2022 04:42:54 Mother Essential hypertension MIGRATION.663 9678063 Not available 04/11/2022 04:42:54 Notes:no breast cancer, colo n Female cancer paternal great aunt Medical History Condition Response NERVE DISEASE Y BLINDNESS N RHEUMATIC FEVER N KIDNEY STONES N BLADDER PROBLEMS N MRSA N OTHER # 1 N POLIO N LUNG DISEASE/DISORDER N HISTORY OF DRUG ABUSE N COPD N RADIATION / CHEMOTHERAPY N Other # 2 Y BLOOD DISEASES [...] INSOMNIA N HIGH CHOLESTEROL / HYPERLIPIDEMIA Y EYE PROBLEMS N HYPERTHYROIDISM N EDEMA N CHRONIC PAIN SYNDROME N HYPOTHYROIDISM Y CAROTID BLOCKAGE N CONSTIPATION N BACK / NECK PROBLEMS N ATHEROSCLEROSIS N BREAST PROBLEMS N DIALYSIS N ECZEMA N OSTEOPOROSIS N ARTHRITIS Y APPENDICITIS N DIABETES, TYPE Y BAD TEETH N ENT N HEARTBURN / REFLUX N AUTISM SPECTRUM DISORDER (ASD) N HEPATITIS / LIVER DISEASE N GOUT Y SLEEP DISORDER N ALZHEIMER'S DISEASE N Brain Problems N DEMENTIA N HERPES N SEIZURES/EPILEPSY N HEADACHES/MIGRAINES N VASCULAR DISEASE N PACEMAKER N Blood Disorder N DIZZINESS Y HEART DISEASE/HEART PROBLEMS N KIDNEY DISEASE N MULTIPLE SCLEROSIS N CANCER: SPECIFY N CARDIAC ARRHYTHMIA N ATRIAL FIBRILLATION N Gall Stones N PULMONARY EMBOLISM N AUTOIMMUNE DISEASE N Gynecological HistoryNo gynecological history recorded. Obstetrics History GPAL:G 0 P 0 0 0 0 Immunizations Vaccine Type Date Status Note Provider Nam e and Address Organization Details Recorded Time Influenza, split virus, quadrivalent, PF 2 completed Not Available [facility] 03/20/2023 11:50:45 COVID-19, mRNA, LNP-S, PF, 100 mcg/0.5mL dose or 50 mcg/0.25mL dose 1 completed Not Available [facility] 03/20/2023 11:50:45 SARS-COV-2 (COVID-19) vaccine, UNSPECIFIED 1 completed Not Available [facility] 03/20/2023 11:50:45 SARS-COV-2 (COVID-19) vaccine, UNSPECIFIED 1 completed Not Available [facility] 03/20/2023 11:50:45 Influenza, split virus, trivalent, preservative 1 completed Not Available [facility] 03/20/2023 11:50:45 Influenza, high-dose, trivalent, PF 4 completed Not Available [facility] 03/20/2023 11:50:45 Tdap 0 completed Not Available [facility] 03/20/2023 11:50:45 Past Encounters Encounter ID Performer Location Encounter Start Date Encounter Closed Date Diagnosis/Indication Diagnosis SNOMED-CT Code Diagnosis ICD10 Code Diagnosis Note [id number] [facility] Internal Med [facility] [address] [facility] [place] [address] 06/30/2020 00:00:00 06/30/2020 13:57:19 [id number] [facility] Internal Med [facility] [address] [place] [address] 10/27/2020 00:00:00 10/27/2020 18:30:28 [id number] [facility] Internal Med [facility] [address] [place] [address] 11/24/2020 00:00:00 11/24/2020 14:55:06 [id number] [facility] [place] [address] [place] [address] 01/02/2021 00:00:00 01/02/2021 18:34:29 [id number] [facility] Internal Med [facility] [address] [facility] 15 [place] [address] 01/19/2021 00:00:00 01/19/2021 18:34:13 [id number] [facility] General Surgery [address] [facility] [address] [place] [address] 02/14/2021 00:00:00 02/14/2021 13:36:35 [id number] [facility] [place] [address] [place] [address] 03/06/2021 00:00:00 03/06/2021 16:06:27 [id number] [facility] Podiatry [address], [address] [place] [address] 03/09/2021 00:00:00 03/09/2021 15:21:10 [id number] [facility] Internal Med [facility] [address] [facility] 15 [place] [address] 06/06/2021 00:00:00 06/14/2021 12:41:12 [id number] [facility] Internal Med [facility] [address] [place], [place] [address]e., [facility] 15 [place] [address] 07/11/2021 00:00:00 07/11/2021 17:56:57 [id number] [facility] Podiatry [address] [address] 08/01/2021 00:00:00 08/01/2021 16:07:54 [id number] _ATHENA_M IGRATION_ DEFAULT_1 _1 , 08/03/2021 00:00:00 08/03/2021 17:40:07 [id number] [facility] Pod[facility] [place] [address] [place] [address], [address] [place] [address] 08/17/2021 00:00:00 08/17/2021 17:09:35 [id number] [facility] Podiatry [address], [address] [place] [address] 09/14/2021 00:00:00 10/09/2021 12:17:28 [id number] [facility] [place] [address] [place] [address], [address] [place] [address] 09/21/2021 00:00:00 09/21/2021 17:21:52 [id number] [facility] Internal Med [facility] [address] [facility] 15 [place] [address] 10/10/2021 00:00:00 10/10/2021 17:45:20 [id number] [facility] [place] [address] [place] [address] 11/23/2021 00:00:00 11/23/2021 17:22:47 [id number] [facility] Internal Med [facility] [address] [place] [address] Ave[address] [address] 03/20/2022 00:00:00 03/20/2022 16:46:49 [id number] Elio Gibson MD [facility] [place] [address] [place] [address] 05/24/2022 16:12:45 05/24/2022 17:01:07 Uncontrolled type 2 diabetes mellitus [id number] E11.65 a1c of 9.2%- will uptitrate metformin to 1000 mg po twice daily as her renal function is in range (will address proteinuri a with kerendia as noted below)- continue farxiga and glimepirid e scale. She did not tolerate the mounjaro well due to hx of UC. Discussed carb counting and how to read food labels. Recommende d patient to utilize the diabetesfo [employer] from the ADA website to help with food preparatio n as this presents ideal carb content per meal so this will make carb counting much easier for patient. Recommende d she incorporat e natural insulin tool crib manager s such as pears, apples, cinnamon, jocelin and sweet potatoes to help mobilize her endogenous insulin. Recommende d up to 150 minutes of moderate level activity/e xercise weekly. She is aware to complete the DST as she has labs and medication at home to screen for hypercorti solism Hypothyroidism 67452604 E03.9 TSH in range- continue LT4 137 mcg daily. Mixed hyperlipidemia 267 625067 E78.2 will continue statin therapy- will request potential start of generic vascepa as brand name vascepa is exceptiona lly expensive and her TG are out of goal range. Proteinuria 36631879 R80 .9 Trial on kerendia 10 mg [...] she chooses to go outside of the [facility] system to obtain labwork she was [...] in her case. She voiced understand ing. [id number] Cameron elias MD S[facility] Internal Med [facility] [address] [facility] [place] [address] 07/17/2022 16:15:03 07/17/2022 17:42:34 Screening - NAD 024894306 Z13.9 C-scope: Did have this on 04/12/2019 [...] of the above Generalize d anxiety disorder 96526877 F41.1 On buspirone 10mg bidOn lexapro 10mg daily, given by Dr Duval suicidal or homicidal Needs to see Dr Alvares Type 2 sasha betes mellitus without complication 127321878 E11.9 OV 06/30/2020 :On metformin 1000mg bidOn ozempic will d/c this as noted to have incidental pancreatit is on the CT doneOn Giuliana eeds to see eye MD and family services assistant Get an apt with Dr Gibson endo [...] Gibson 05/24/2022 , next apt 09/25/2022 Hyperlipidemia 59611017 E78.5 On ASAOn atorvastat in 40mg dailyOn fenofibrat e 54mg daily now Not on vascepa Get labs Essential hypertension 94418378 I10 On ASAOn metoprolol ER 50mg dailyOn valsartan- HCTZ 160-25mg daily Did see Dr Johnson cardiology 08/10/2020 , next in 6 months Liver enzy mes level above reference range 864008257 R74.01 GGT elevated: abstain for ETOH! US liver 02/01/2021 : Mild hepatomega lyNeeds to see GI hepatology Vitamin D deficiency 347 80957 E55.9 Hypothyroidism 47736112 E03.9 S/p US thyroid and s/p FNAC 01/19/2020 : benign On levothyrox ine 137mcgs dailyGet labs Gout 29483117 M10.9 On allopurino l 100mg dailyDoes well with this Ulcerative colitis 10753 004 K51.90 On balsalazid e 750mg 3 caps daily, seen by Dr Fuentes 05/15/2021 Does well Neuropathy 433626706 G62 .9 On gabapentin 300mg bidDoes well on this Hernia of anterior abdominal wall 427636720 K43.[address] Velásquez S/p post op visit on 12/17/2019 Gastroesop hageal reflux disease without esophagitis 754075319 K21.9 On PPITake only as needed Proteinuria 38869334 R80 .[address] Díaz nephrology , declines any more referralsO n melodie now given by Dr GibsonGet labs Morbid obesity 345706760 E66.[address] Gibson, more diet and exercise is neededDr Gibson Screening for malignant neoplasm of breast 818547054 Z12.39 [id number] Serafin Hamilton DPM [facility] Podiatry [address], [facility] [address] [place] [address] 07/27/2022 10:31:12 07/27/2022 11:08:18 Cellulitis of toe of left foot 7378042310 0569829 L03.032 left 2nd toe-Resolv edfinish oral antibiotic sfollow-up in 3 weeks Skin ulcer of toe due to diabetes mellitus type 2 7357387120 6125262 E11.621 debrided todayEduca william on wound careApply daily wound care dressings and offloading to prevent worsening woundFollo w-up in 3 weeks Diabetic p eripheral neuropathy 111486379 E11.42 continue diabetic control and supportive shoe gear Diabetes mellitus 877900 [address] Bustamante due to poorly controlled diabetes [id number] Serafin Hamilton DPM S[facility] Podiatry [address], [facility] [address] [place] [address] 08/21/2022 16:39:00 08/21/2022 17:17:49 Skin ulcer of toe due to diabetes mellitus type 2 6101449714 9851542 E11.621 Resolvedco ntinue supportive shoe gearCheck feet daily for wounds infectionF ollow-up in 3 months for diabetic foot care Cellulitis of toe of left foot 8383629498 4163258 L03.032 resolved Diabetic p eripheral neuropathy 643478676 E11.42 continue diabetic control and supportive shoe gear Diabetes mellitus 754678 [address] Bustamante due to poorly controlled diabetes [id number] Elio Gibson MD [facility] End[facility] [place] [address] [place] [address] 09/25/2022 09:59:49 09/25/2022 11:24:13 Uncontrolled type 2 diabetes mellitus 187131612 E11.65 a1c of 9.4% up from 9.2%- [...] Recommende d patient to utilize the diabetesfo [employer] from the ADA website to help with food preparatio n as this presents ideal carb content per meal so this will make carb counting much easier for patient. Recommende d she incorporat e natural insulin tool crib manager s such as pears, apples, cinnamon, jocelin and sweet potatoes to help mobilize her endogenous insulin. Recommende d up to 150 minutes of moderate level activity/e xercise weekly. Dyslipidemia 930721722 E 78.5 Continue on statin therapy. Spent [...] answered and refills necessary at visit today. [id number] Gladis Nguyễn MD [facility] General Surgery [address] [facility] [place] [address] 09/26/2022 15:12:52 09/26/2022 16:39:00 Ulcerative colitis 81693075 K51.90 [id number] Cameron elias MD [facility] Internal Med [address] [facility] [place] [address] 11/20/2022 16:00:23 11/20/2022 16:49:36 Screening - NAD 836258930 Z13.9 C-scope: Did have this on 04/12/2019 [...] of the above Generalize d anxiety disorder 20082543 F41.1 On buspirone 10mg bidNot on lexapro 10mg daily, given by Dr Duval suicidal or homicidal Needs to see Dr Alvares Type 2 sasha betes mellitus without complication 494836404 E11.9 OV 06/30/2020 :On metformin 1000mg bidOn ozempic will d/c this as noted to have incidental pancreatit is on the CT doneOn changChidi eeds to see eye MD and family services assistant Get an apt with Dr Gibson endo [...] on insulin at this timeGet labs Hyperlipidemia 86570237 E78.5 On ASAOn atorvastat in 40mg dailyOn fenofibrat e 54mg daily now Not on vascepa Get labs Essential hypertension 64034303 I10 On ASAOn metoprolol ER 50mg dailyOn valsartan- HCTZ 160-25mg daily Did see Dr Johnson cardiology 08/10/2020 , next in 6 months Liver enzy mes level above reference range 473871866 R74.01 GGT elevated: abstain for ETOH! US liver 02/01/2021 : Mild hepatomega lyNeeds to see GI hepatology Vitamin D deficiency 347 30636 E55.9 Can d/c vit d once doneRepeat the vit d Hypothyroidism 19935467 E03.9 S/p US thyroid and s/p FNAC 01/19/2020 : benign On levothyrox ine 137mcgs dailyGet labs Gout 23524183 M10.9 On allopurino l 100mg dailyDoes well with this Ulcerative colitis 22076 004 K51.90 On balsalazid e 750mg 3 caps daily, seen by Dr Fuentes 05/15/2021 , Dr Nguyễn Does well Neuropathy 857032219 G62 .9 On gabapentin 300mg bidDoes well on this Hernia of anterior abdominal wall 565912437 K43.[address] Velásquez S/p post op visit on 12/17/2019 Gastroesop hageal reflux disease without esophagitis 501003109 K21.9 On PPITake only as needed Proteinuria 36864062 R80 .[address] Díaz nephrology , declines any more referralsO n kerendia now given by Dr GibsonGet labs Morbid obesity 260608711 E66.[address] Gibson, more diet and exercise is neededDr Gibson Screening for malignant neoplasm of breast 047920810 Z12.39 Screening for osteoporosis 620117253 Z13.820 Uncontroll ed type 2 diabetes mellitus 300484336 E11.65 [id number] Cameron elias MD [facility] Internal Med [address] [facility], [address] [place] [address] 03/07/2023 17:28:52 03/07/2023 18:14:04 Screening - NAD 939702883 Z13.9 C-scope: Did have this on 04/12/2019 [...] of the above Generalize d anxiety disorder 40512748 F41.1 On buspirone 10mg bidNot on lexapro 10mg daily, given by Dr Duval suicidal or homicidal Needs to see Dr Alvares Type 2 sasha betes mellitus without complication 409889973 E11.9 OV 06/30/2020 :On metformin 1000mg bidOn ozempic will d/c this as noted to have incidental pancreatit is on the CT doneOn Giuliana eeds to see eye MD and family services assistant Get an apt with Dr Gibson endo [...] bidOn OzempicGet labsShould see endocrine now Hyperlipidemia 37500728 E78.5 On ASAOn atorvastat in 40mg dailyOn fenofibrat e 54mg daily now Not on vascepa Get labs Essential hypertension 11534504 I10 On ASAOn metoprolol ER 50mg dailyOn valsartan- HCTZ 160-25mg daily Did see Dr Johnson cardiology 08/10/2020 , next in 6 months Liver enzy mes level above reference range 819064955 R74.01 GGT elevated: abstain for ETOH! US liver 02/01/2021 : Mild hepatomega lyNeeds to see GI hepatology Vitamin D deficiency 347 18806 E55.9 Can d/c vit d once doneRepeat the vit d Hypothyroidism 06154937 E03.9 S/p US thyroid and s/p FNAC 01/19/2020 : benign On levothyrox ine 137mcgs dailyGet labs Gout 48611294 M10.9 On allopurino l 100mg dailyDoes well with this Ulcerative colitis 80565 004 K51.90 On balsalazid e 750mg 3 caps daily, seen by Dr Fuentes 05/15/2021 , Dr Nguyễn Does well Neuropathy 148925187 G62 .9 On gabapentin 300mg bidDoes well on this Hernia of anterior abdominal wall 609694238 K43.[address] Velásquez S/p post op visit on 12/17/2019 Gastroesop hageal reflux disease without esophagitis 866207404 K21.9 On PPITake only as needed Proteinuria 81908934 R80 .[address] íDaz nephrology , referredOn kerendia now given by Dr Adama cedeno Morbid obesity 228914512 E66.[address] Gibson, more diet and exercise is neededDr Gibson Screening for malignant neoplasm of breast 463936333 Z12.39 Screening for osteoporosis 979495915 Z13.820 Health Concerns Section Related Observation LastModified by Organization Detai ls LastModified Time None Recorded Concern Status LastModified by Organization Details LastModified Time None Recorded Advance Directives Directive N: Payers Encounter Date Sequence Insurance Name Policy Number Policy Larios Covered Member ID Larios Member ID Guarantor Name 08/21/2022 1 [employer] - [facility] Amairani Hilton [id number] Amairani Hilton 09/25/2022 1 [place] [id number] Amairani Hilton [id number] Amairani Hilton 09/26/2022 1 [place] [id number] Amairani Hilton [id number] Amairani Hilton 11/20/2022 1 [place] [id number] Amairani Hilton [id number] Amairani Hilton 03/07/2023 1 UMR [id number] Amairani Hilton [id number] Amairani Hilton Notes Date Note Type Note [...] complaints. Serafin Hamilton DPM [address], [facility] [address], [place], [address], [employer] [facility] [employer] 08/21/2022 17:02:27 09/25/2022 text/html 52 yo female [...] ng/dLvit D 34 ng/mLglucose 207 mg/dLCr normalLFT uquivl292/244/41/45H /H 14.8/46.9microalbumi n <6 ug/mg Elio Gibson MD [address], [facility] [address], [place], [address], [employer] 09/25/2022 12:51:50 09/26/2022 text/html AMAIRANI WAS SE EN IN THE OFFICE TODAY FOR COLON EVALUATION PT HAS A HX/O IBD-UC X 4. YRS . HER LAST COLON WAS 2021. TODAY PT REPORTS THAT SHE IS DOING WELL AND NEEDS TO ESTABLISH CARE . Gladis Nguyễn MD [address], [facility] [address], [place], [address], [facility] [employer] [facility] [employer] [facility] 09/26/2022 16:06:45 11/20/2022 text/html OV [...] Romero MD [address], [address], [place], [address], [place] [facility] [employer] 11/20/2022 17:58:50 03/07/2023 text/html OV 09/22/2019:He re [...] Dr Gibson has left Cameron Romero MD [address] [place] [address], [facility] [address], [place], [address], [place] [facility] 03/07/2023 18:11:40 OBGyn Episode No OBEpisode recorded.
== END 2024-03-30 06:33 | disposition home or self-care (01) ==
PROVIDERS: PCP Family Medicine
DX: N20.0 Calculus of kidney (principal); K80.20 Calculus of gallbladder without cholecystitis without obstruction
CPT/HCPCS: 74176

== ENCOUNTER 2024-10-07 06:39 | Outpatient (CLI) | payer OTHER, SELFPAY ==
--- OUTSIDE RECORDS SUMMARY | 2024-10-07 06:41 | XMS_ITS | Clinical Summary ---
Author Organization [facility] Facility Address [address] [place] [address] Care Team Providers Care Hvac Refrigeration Technician Name Role Phone Patrick Romero MD Primary Care Provider [phone] Social History Tobacco Use Types Packs/Day Years [...] (1 of 3 - 19+ 3-dose series) 01/23 Colorectal Cancer Screening: Annual FOBT 2019 Colorectal Cancer Screening: Colonoscopy 2019 Colorectal Cancer Screening: Sigmoidoscopy 2019 Pneumococcal Vaccine: 50+ Years (1 of 1 - PCV) 020 Influenza Vaccine (#1) [address] [facility] Care Teams Hvac Refrigeration Technician Relationship Specialty Start Date End Date Patrick Romero MD [address] [place] [address], [address] [place] [id number] PCP - General Internal Medicine 03/22/22
--- OUTSIDE RECORDS SUMMARY | 2024-10-07 06:41 | XMS_ITS | Patient Health Record ---
Author Organization [facility] [place] [facility] Address [address] [place] [address] Care Team Providers Care Medical Interpreter Name Role Phone Young Alvares Unavailable [phone] Reason For Referral No Information Medications Medication SIG (Take, Route, Frequency, Duration) Notes Start Date End Date Status Mupirocin 2% Ointment External 08/04/2021 Active Vascepa 1 GM Capsule Oral 08/04/2021 Active Valsartan-hydroCHLORO thiazide 160-25 MG Tablet Oral 08/04/2021 Active Cephalexin 250 MG Capsule Oral Active Clindamycin HCl 300 MG Capsule Oral Active Allopurinol 100 MG Tablet Oral 08/04/2021 Active Bydureon BCise 2 MG/0.85ML Auto-injector Subcutaneous 08/04/2021 Active Levothyroxine Sodium 137 MCG Tablet Oral Active Venlafaxine HCl ER 75 MG Capsule Extended Release 24 Hour Oral Active busPIRone HCl 5 MG Tablet Oral Active Cyanocobalamin 1000 MCG/ML Solution Injection 08/04/2021 Active Gabapentin 300 MG Capsule Oral Active Amoxicillin-Pot Clavulanate 875-125 MG Tablet Oral Active Metoprolol Succinate ER 50 MG Tablet Extended Release 24 Hour Oral 08/04/2021 Active Glimepiride 2 MG Tablet Oral Active Farxiga 5 MG Tablet Oral 08/04/2021 Active Balsalazide Disodium 750 MG Capsule Oral Active Atorvastatin Calcium 40 MG Tablet Oral Active metFORMIN HCl 1000 MG Tablet Oral Active Omeprazole 20 MG Capsule Delayed Release Oral Active Nitrofurantoin Monohyd Macro 100 MG Capsule Oral Active Loratadine 10 MG Tablet Oral Active Fluticasone Propionate Diskus 50 MCG/ACT Aerosol Powder Breath Activated Inhalation *Reorder from [employer] for eRx and Interaction Alerts* 08/04/2021 Active metFORMIN HCl ER 500 MG Tablet Extended Release 24 Hour Oral 08/04/2021 Active Escitalopram Oxalate 10 MG Tablet Oral Active busPIRone HCl 10 MG Tablet Oral 08/04/2021 Active Immunizations Vaccine Route Administration Date Status Comme nts Pfizer Biontech Covid-19 Vac cine 2nd dose Unknown 02/26/2020 Administered Pfizer Biontech Covid-19 Vac cine 2nd dose Unknown 03/18/2020 Administered Moderna Covid-19 Vaccine 1st dose Unknown 12/29/2020 Ad ministered Social History Social History Additional Details Category Social Info Options Details Migrated Social History Migrated Social History Alcohol Intake: None 08/04/2021,Tobacco Years: Never smoker 08/04/2021 Plan Of Treatment No Information Insurance Providers Payer Name Payer Address Payer Phone Subscriber Number Group Number Insured Name Patient Relationship to Insured Coverage Start Date Coverage End Date [employer] [phone] [place] [address] 3 [id number] CRISTOFER BEAL Self - patient is the insured [employer] [phone] [place] [address] 3 [id number] BRANDO BEAL Spouse - patient is the spouse of the insured [employer] [address] [place] [address] 3 [id number] CRISTOFER BEAL Self - patient is the insured Medical (General) History Surgical History Surgery Date(Month/Year) Kidney stone analysis ([id number]) 019 Hernia repair w/mesh (85319) 02/11/2019 Hysterectomy (04263) 10/13/1999
[2024-10-07 08:16] LABS: Alanine Aminotransferase 47 U/L (6-35); Albumin Level 4.0 g/dL (3.5-5.1); Alkaline Phosphatase 57 U/L (38-126); Anion Gap 9 mmol/L (4-12); Aspartate Amino Transferase 48 U/L (14-36); Bilirubin,Total 1.2 mg/dL (0.2-1.3); Blood Urea Nitrogen 12 mg/dL (7-17); Calcium 9.3 mg/dL (8.4-10.2); Carbon Dioxide 27 mmol/L (22-30); Chloride 102 mmol/L (98-107); Cholesterol 127 mg/dL (0-200); Estimated Glomerular Filt Rate > 60; Glucose 173 mg/dL (65-110); HDL Direct 35 mg/dL; Potassium 3.7 mmol/L (3.4-5.0); Sodium 138 mmol/L (137-145); Total Protein 6.6 g/dL (6.3-8.2); Triglycerides 242 mg/dL (<150)
[2024-10-07 08:32] LABS: MALB Creatinine Ratio 14.5 mg/g (0-30)
[2024-10-07 08:51] LABS: Thyroid Stimulating Hormone 2.570 uIU/mL (0.465-4.680)
[2024-10-07 09:03] LABS: Free T4 Free Thyroxine 1.62 ng/dL (0.78-2.19)
[2024-10-07 09:25] LABS: Vitamin B12 373.0 pg/mL (239-931)
== END 2024-10-07 06:40 | disposition home or self-care (01) ==
LOC: ANHLAB 06:40
PROVIDERS: PCP Family Medicine; Visit Provider Nurse Practitioner Family
DX: E11.69 Type 2 diabetes mellitus with other specified complication (principal); E78.5 Hyperlipidemia, unspecified; I10 Essential (primary) hypertension
CPT/HCPCS: 36415; 80053; 80061; 82043; 82306; 82607; 84439; 84443

== ENCOUNTER 2024-11-04 16:37 | Emergency (ER) | payer OTHER, SELFPAY ==
[2024-11-04 16:51] VITALS: BP 121/48; PULSE 94; RESP 16; TEMP 36.8; O2SAT 95
[2024-11-04 17:32] LABS: EDUAAPPEAR Clear; EDUABILI Negative (Negative); EDUABLOOD 2+ (Negative); EDUACOLOR1 Yellow; EDUAGLUCOSE 2+ (Negative); EDUAKETONE 1+ (Negative); EDUALEUKO 1+ (Negative); EDUANITRATE Negative (Negative); EDUAPH 5.5; EDUAPROTEIN 2+ (Negative); EDUASPGRAVITY 1.015; EDUAUROBILI 0.2
--- NOTE | 2024-11-04 17:55 | ED.FEMALEGU ---
HPI - Female Genitourinary General Chief complaint: Urogenital-Female Stated complaint: urinary irritation Time Seen by Provider: 11/04/24 17:45 Source: patient and RN notes reviewed Mode of arrival: ambulatory Limitations: no limitations History of Present Illness HPI Narrative: 54-year-old female presents Express Care complaining of urinary symptoms for to days. Patient reports having dysuria, increased frequency, hesitancy. Patient denies any fevers, abdominal pain, body aches, chills, nausea, vomiting, diarrhea, blood in her urine vaginal bleeding, vaginal discharge. Patient has not taken anything [id number] for symptoms. Patient has history of diabetes. Patient says she takes metformin and farxiga for it. Related Data Home Medications ?Medication ?Instructions ?Recorded ?Confirmed ?Last Taken ?Type metoprolol succinate 50 mg 50 mg PO DAILY 10/23/19 11/04/24 05/15/21 History tablet,extended release 24 hr aspirin 81 mg tablet 81 mg PO DAILY 03/14/20 10/08/24 05/14/21 History cholecalciferol (vitamin D3) 50 50 mcg PO DAILY 01/15/24 10/08/24 Unknown History mcg (2,000 unit) capsule ascorbic acid (vitamin C) 500 mg mg PO 08/12/24 10/08/24 Unknown History capsule ferrous sulfate 325 mg (65 mg 325 mg PO DAILY 08/12/24 10/08/24 Unknown History iron) tablet,delayed release Allergies Allergy/AdvReac Type Severity Reaction Status Date / Time Iodinated Contrast Media Allergy Hives Verified 11/04/24 16:49 Review of Systems Review of Systems: CONSTITUTIONAL: Denies fever, chills, body aches, or sweats. EYES: Denies visual changes, redness, or discharge. ENT: Denies rhinorrhea, congestion, sore throat, or otalgia. CARDIOVASCULAR: Denies chest pain, palpitations, or edema. RESPIRATORY: Denies cough or dyspnea. GASTROINTESTINAL: Denies abdominal pain, nausea, vomiting, or diarrhea. GENITOURINARY: Positive for dysuria, hesitancy, increased frequency. Negative for hematuria, vaginal bleeding, vaginal discharge SKIN: Denies rash or itching. MUSCULOSKELETAL: Denies back pain, joint pain, or myalgia. NEUROLOGIC: Denies headache, numbness, or weakness. PSYCHIATRIC: Denies anxiety or depression. All other systems reviewed are negative, except as documented in HPI. [facility] Past Medical History Medical History Hx of nephrolithotomy with removal of calculi delivery delivered Asthma Anxiety Allergies Hypothyroid Hyperlipidemia GERD (gastroesophageal reflux disease) Diabetes Type 2 Hypertension Surgical History Surgical History History of inguinal hernia repair H/O: hysterectomy Family History Family History Father Alcoholism Cancer Hypertension Mother Asthma Hypertension Depression Anxiety Thyroid disorder Sibling Alcoholism Hypertension Thyroid disorder Social History Social History Smoking status: Never smoker Second hand tobacco smoke exposure: No Alcohol intake: never Substance use: never Substance use type: does not use Do You Feel Safe in your Home?: Yes Lack of Transportation: No Lack of Food: Never True Current Housing: I Have Housing Concerned About Future Housing: No Difficulty Paying Gas/Electric Bills: No Difficulty Paying for Meds: No Currently Unemployed: No Education: High School Diploma/GED Difficulty w/ Childcare or Family Care: No Living arrangements: with family Occupation/Education: occupation 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 There is no relevant family history pertinent to the patient complaint. Exam Narrative: GENERAL: This is a well-nourished, well-developed adult, in no apparent distress. They are non ill-appearing, nontoxic appearing. Patient is obese. HEAD: normocephalic, atraumatic. EYES: Sclera clear/white. Vision is grossly intact. Conjunctiva normal bilaterally. Extraocular movements intact. EARS: External ears normal,Hearing grossly intact. NOSE: External nose normal THROAT: Mucous membranes moist NECK: Normal range of motion CARDIOVASCULAR: Regular rate and rhythm. Normal S1-S2. No clicks, gallops, rubs, murmurs. RESPIRATORY: Respiratory rate normal, respiratory effort nonlabored, no respiratory distress. Lung sounds clear to auscultation throughout. Lung sounds equal bilaterally. No adventitious lung sounds. GASTROINTESTINAL: Abdomen is large, soft, non-tender, nondistended. Bowel sounds are active. No hepato-splenomegaly, or palpable masses. No guarding or rigidity. No rebound tenderness. SKIN: warm, Dry, intact with no suspicious lesions or rash, good texture and turgor. NEURO: awake, alert, and oriented to person, place and time. There were no obvious focal neurologic abnormalities. EXTREMITIES: No joint tenderness, effusion, or edema noted. BACK: Nontender without deformity. No CVA tenderness. Course Course Emergency Course: Portions of this record may have been created with voice recognition software Level of Care: Express Care Visit Vital Signs Vital signs: Vital Signs Temperature 98.3 F 11/04/24 16:51 Pulse Rate 94 11/04/24 16:51 Respiratory Rate 16 11/04/24 16:51 Blood Pressure 121/48 L 11/04/24 16:51 Pulse Oximetry 95 11/04/24 16:51 Oxygen Delivery Room Air 11/04/24 16:51 Temperature 98.3 F 11/04/24 16:51 Pulse Rate 94 11/04/24 16:51 Respiratory Rate 16 11/04/24 16:51 Blood Pressure 121/48 L 11/04/24 16:51 Pulse Oximetry 95 11/04/24 16:51 Oxygen Delivery Room Air 11/04/24 16:51 MDM - Female Genitourinary MDM Narrative Medical decision making narrative: Urine dipstick shows evidence of urinary tract infection. Urine culture pending. Patient's symptoms clinically consistent with UTI. Will go ahead and treat with cephalexin. Patient is aware of the potential side effects of Farxiga causing recurrent UTIs, she discussed with this her PCP who said will elected to keep her on it. Advised patient to discuss this with her PCP again as she has another UTI. Discussed physical exam findings. Advised supportive measures and signs/symptoms to go to the ER. Pt is appropriate for outpt treatment and f/u. Differential Diagnosis Differential diagnosis: Likely urinary tract infection, cystitis and other (Pyelonephritis) Lab Data Attestation: I reviewed the patient's lab results. Labs: Lab Results 11/04/24 Range/Units 17:10 POC Urine Color Yellow POC Urine Clarity Clear POC Urine pH 5.5 POC Ur Specif [place] 1.015 POC Urine Protein 2+ (Negative) POC Ur Glucose (UA) 2+ (Negative) POC Urine Ketones 1+ (Negative) POC Urine Blood 2+ (Negative) POC Urine Nitrite Negative (Negative) POC Urine Bilirubin Negative (Negative) POC Urine Urobilinogen 0.2 POC U Leukocyte Esteras 1+ (Negative) Discharge Plan Discharge Clinical Impression: Urinary tract infection Qualifiers: Urinary tract infection type: site unspecified Hematuria presence: with hematuria Qualified Code(s): N39.0 - Urinary tract infection, site not specified Patient Disposition: Home Condition: Stable Instructions: Antibiotic Form, Urinary Tract Infection in Women (ED) Additional Instructions: Take the antibiotic as prescribed The urine will be sent of for a culture to identify what type of bacteria is causing your infection. If the culture shows that the antibiotic will not get rid of your infection, you will be notified and a new antibiotic will be called in for you. Increase water intake you will need to follow up with your PCP 3-5 days. Go to the ER for any worsening symptoms, abdominal pain, fevers, nausea, vomiting, or any other concerns Patient Language: Israeli Prescriptions: New cephalexin 500 mg capsule 500 mg PO BID 5 Days Qty: 10 0RF No Action metoprolol succinate 50 mg tablet extended release 24 hr 50 mg PO DAILY cholecalciferol (vitamin D3) 50 mcg (2,000 unit) capsule 50 mcg PO DAILY ondansetron 4 mg tablet,disintegrating 4 mg PO Q8H Qty: 30 1RF diclofenac sodium 1 % gel 2 g topical QID PRN (Reason: pain (scale score 4-6)) Qty: 200 0RF Rx Instructions: apply to affected areas ferrous sulfate 325 mg (65 mg iron) tablet,delayed release (DR/EC) 325 mg PO DAILY ascorbic acid (vitamin C) 500 mg capsule PO dapagliflozin propanediol [Farxiga] 10 mg tablet 10 mg PO QAM Qty: 90 4RF Ozempic 2 mg/dose (8 mg/3 mL) pen injector 2 mg subcut WEEKLY 90 Days Qty: 9 3RF metformin 1,000 mg tablet See Rx Instructions .ROUTE .COMPLEX Qty: 180 1RF Dose Instruction: TAKE 1 TABLET BY MOUTH TWICE DAILY WITH MEALS Rx Instructions: TAKE 1 TABLET BY MOUTH TWICE DAILY WITH MEALS icosapent ethyl [Vascepa] 1 gram capsule 2 g PO BID Qty: 360 1RF (DME) CPAP Equipment See Rx Instructions .Route .MEDSUPPLY Qty: 1 0RF Rx Instructions: Rx: Resmed CPAP at 10 cm H2O, size small Resmed N30i UTN nasal mask, CPAP filters/tubing and heated humidity DME: [facility] aspirin 81 mg Tablet 81 mg PO DAILY atorvastatin 40 mg tablet 40 mg PO DAILY Qty: 90 3RF valsartan-hydrochlorothiazide 160-25 mg tablet 1 tablet PO DAILY Qty: 90 1RF allopurinol 100 mg tablet 100 mg PO DAILY Qty: 90 1RF omeprazole 20 mg capsule,delayed release(DR/EC) 20 mg PO DAILY Qty: 90 1RF buspirone 10 mg tablet 10 mg PO BID Qty: 180 1RF gabapentin 300 mg capsule 600 mg PO QPM Qty: 180 1RF levothyroxine 137 mcg tablet 137 mcg PO DAILY Qty: 90 1RF balsalazide 750 mg capsule See Rx Instructions .ROUTE .COMPLEX Qty: 270 1RF Dose Instruction: TAKE 3 CAPSULES BY MOUTH EVERY DAY Rx Instructions: TAKE 3 CAPSULES BY MOUTH EVERY DAY Follow-up/Referrals: Cassandra Ross DO [Primary Care Provider, Family Practice] Time of Disposition: 17:48
== END 2024-11-04 17:57 | disposition home or self-care (01) ==
PROVIDERS: PCP Family Medicine
DX: N39.0 Urinary tract infection, site not specified (principal); E11.9 Type 2 diabetes mellitus without complications; Z79.84 Long term (current) use of oral hypoglycemic drugs; Z79.85 Long-term (current) use of injectable non-insulin antidiabetic drugs; I10 Essential (primary) hypertension; E78.5 Hyperlipidemia, unspecified; E03.9 Hypothyroidism, unspecified; K21.9 Gastro-esophageal reflux disease without esophagitis; J45.909 Unspecified asthma, uncomplicated; Z79.82 Long term (current) use of aspirin
CPT/HCPCS: 81003; 87077; 87086; 87186; 99213; G0463